=== PATIENT | male | born 1970 ===

== ENCOUNTER 2022-04-28 07:52 | Inpatient (IN) | payer MEDICARE ==
[2022-04-28] MEDS ORDERED: ACETAMINOPHEN 500 MG TAB PO ONE (09:35)
[2022-04-28] MEDS ORDERED: SODIUM CHLORIDE 0.9% 1000 ML 1,000 ML IV ONE ×2 (09:35→10:49)
[2022-04-28 10:19] LABS: Basophils % (Auto) 0.2 % (0.0-1.8); Eosinophils % (Auto) 0.4 % (0.0-4.3); Hematocrit 47.2 % (35.5-45.6); Hemoglobin 16.2 gm/dl (11.8-15.2); Lymphocytes # (Auto) 2.1 K/mm3 (1.2-5.4); Mean Corpuscular HGB Conc 34 % (32-34); Mean Corpuscular Volume 94 fl (84-94); Monocytes # (Auto) 1.6 K/mm3 (0.0-0.8); Monocytes % (Auto) 13.5 % (0.0-7.3); Platelet Count 136 K/mm3 (140-440); Red Blood Count 5.05 M/mm3 (3.65-5.03); Red Cell Distribution Width 14.6 % (13.2-15.2)
--- NOTE | 2022-04-28 10:25 | XRay Report ---
CHEST 1 VIEW 04/28/2022 9:17 AM INDICATION / CLINICAL INFORMATION: hiv, p/w body aches, fever. COMPARISON: None available. FINDINGS: SUPPORT DEVICES: None. HEART / MEDIASTINUM: No significant abnormality. LUNGS / PLEURA: Subtle patchy airspace densities are suggested in both lower lung zones. No consolida tion, pleural effusion or pneumothorax. ADDITIONAL FINDINGS: No significant additional findings. IMPRESSION: 1. Subtle bilateral airspace opacities are suggested as described. Atypical pneumonia is not excluded . Signer Name: Jefferson Farrell Jr, MD Signed: 04/28/2022 10:21 AM Workstation Name: [id number]
[2022-04-28 10:33] LABS: Alanine Aminotransferase 31 units/L (7-56); BUN/Creatinine Ratio 15; Blood Urea Nitrogen 16 mg/dL (9-20); Calcium 8.7 mg/dL (8.4-10.2); Hemolysis Index 6
[2022-04-28] MEDS ORDERED: cefTRIAXone/NS 1 GM/50 ML 1 GM/50 ML BAG IV ONE (10:48)
--- NOTE | 2022-04-28 11:18 | Emergency Department Report ---
HPI - General Chief Complaint: Pain General PUI?: Yes Time Seen by Provider: 04/28/22 09:29 - HPI HPI: 51-year-old obese male with history of HIV, CD4 and viral load counts unknown by patient, CVA with left-sided residual weakness per patient's report, hypertension, presents for evaluation of weakness. Patient reports that he has been feeling weak over the past few days and subscribes to a mild phlegm productive cough. He states he attempted to get out of bed this morning and fell, landing on the ground. He denies any head injury or loss of consciousness. He states his sister who lives with him was not able to aid him in getting up and so she called EMS and was brought to the emergency department for further evaluation. He complains of body aches and chills and generalized fatigue and weakness. Pain currently 4 out of 10 ED Past Medical Hx - Past Medical History Previous Medical History?: Yes Hx Hypertension: Yes Hx HIV: Yes - Social History Smoking Status: Never Smoker Substance Use Type: None - Medications Home Medications: Home Medications Medication Instructions Recorded Confirmed Last Taken Type Abacavir/Dolutegravir/Lamivudi 1 each PO DAILY 04/28/22 04/28/22 Unknown History [Triumeq (Nf)] AtorvaSTATin [Lipitor] 40 mg PO QHS 04/28/22 04/28/22 Unknown History Escitalopram [Lexapro] 10 mg PO DAILY 04/28/22 04/28/22 Unknown History Famotidine [Acid-Pep] 20 mg PO DAILY 04/28/22 04/28/22 Unknown History Furosemide [Lasix] 40 mg PO DAILY 04/28/22 04/28/22 Unknown History NIFEdipine [Nifedipine ER] 30 mg PO DAILY 04/28/22 04/28/22 Unknown History Warfarin Sodium 6 mg PO DAILY 04/28/22 04/28/22 Unknown History lisinopriL [Zestril TAB] 40 mg PO QDAY 04/28/22 04/28/22 Unknown History ED Review of Systems ROS: Stated complaint: GENERAL ILLNESS Other details as noted in HPI Comment: All other systems reviewed and negative Constitutional: chills, diaphoresis, fever, malaise, weakness Respiratory: no symptoms reported, see HPI, cough, shortness of breath. denies: orthopnea, SOB with exertion, SOB at rest, stridor, wheezing, other Cardiovascular: denies: chest pain, palpitations, dyspnea on exertion, orthopnea, edema, syncope, paroxysmal nocturnal dyspnea, other Endocrine: denies: see HPI, excessive sweating, flushing, intolerance to cold, intolerance to heat, increased hunger, increased thirst, increased urine, unexplained weight gain, unexplained weight loss Genitourinary: urgency, dysuria. denies: as per HPI, frequency, hematuria, discharge, testicular pain, testicular mass, other Skin: denies: rash, lesions, change in color, change in hair/nails, pruritus Neurological: denies: headache, weakness, numbness, paresthesias, confusion, abnormal gait, vertigo, other Psychiatric: denies: anxiety, depression, auditory hallucinations, visual hallucinations, homicidal thoughts, suicidal thoughts Physical Exam - Physical Exam Vital Signs: Vital Signs 04/28/22 04/28/22 08:12 10:29 Temperature 100.9 F H Pulse Rate 123 H 106 H Respiratory 19 18 Rate Blood Pressure 177/120 158/103 [Left] O2 Sat by Pulse 96 96 Oximetry General: Gen: Obese middle-age male, weak appearing, intermittently coughing, no drooling no stridor, mild respiratory distress HEENT: Normocephalic atraumatic pupils equally round and reactive to light extraocular muscles intact sclera anicteric Neck: Full range of motion, no midline spinal tenderness palpation, no JVD, no carotid bruits, no nuchal rigidity CVS: S1-S2 tachycardic, no gallops rubs or murmurs Pulmonary: Clear to auscultation bilaterally, no wheezes rales or rhonchi Abdomen: Soft nondistended nontender no guarding or rebound tenderness, no palpable deformities or step-offs, normal active bowel sounds, no hepatosplenomegaly, no pulsatile masses : Deferred Extremities: No cyanosis no clubbing no edema, intact distal peripheral pulses, Integumentary: Skin normal, no petechia no purpura no abscess no lacerations no evidence of trauma no evidence of infection Neuro: Patient is awake alert and oriented to person place time situation, mentating well, cranial nerves II through XII intact, no focal neurodeficits, sensation grossly tact Psych: Calm cooperative, mood affect normal ED Course Vital Signs 04/28/22 04/28/22 08:12 10:29 Temperature 100.9 F H Pulse Rate 123 H 106 H Respiratory 19 18 Rate Blood Pressure 177/120 158/103 [Left] O2 Sat by Pulse 96 96 Oximetry ED Medical Decision Making - Lab Data Result diagrams: 04/28/22 09:39 04/28/22 09:39 - EKG Data -: EKG Interpreted by Me Rate: tachycardia - EKG Data When compared to previous EKG there are: previous EKG unavailable - Radiology Data Radiology results: report reviewed - Medical Decision Making 51yo M p/w sepsis secondary to community acquired pneumonia. Pt has fever of 100.9F, HR of 124, and lactic acid level of 2.9. Pt given acetaminophen, NS 1L IVSS, and rocephin 1mg IVV. pt's care transferred to Dr. Killian, admitting hospitalist, for further management. Critical Care Time: No Critical care attestation.: If time is entered above; I have spent that time in minutes in the direct care of this critically ill patient, excluding procedure time. ED Disposition Clinical Impression: Sepsis, Community acquired pneumonia Disposition: ADMITTED INPATIENT Is pt being admited?: Yes Does the pt Need Aspirin: No Condition: Stable Instructions: Bacterial Pneumonia (ED)
[2022-04-28 11:26] LABS: Bacteria,Urine 1+ /HPF (Negative); Mucus,Urine 2+ /HPF
[2022-04-28 11:52] LABS: Bilirubin,Urine Small (Negative); Color,Urine Dark Yellow (Yellow)
[2022-04-28 11:53] LABS: Blood,Urine Trace (Negative)
[2022-04-28 11:55] LABS: Ictotest,Urine Negative (Negative)
--- NOTE | 2022-04-28 15:47 | History and Physical Report ---
History of Present Illness Chief complaint: I do not feel good History of present illness: 51 YO Male with HIV on antiretroviral therapy, CVA with LHP, HTN, HLD presents to ED for evaluation. Patient reports "I do not feel good". Patient states that he has experienced generalized weakness over the past 2 days with p ersistent symptoms over the same timeframe. Patient knowledges diminished oral intake. Patient states that while attempting to get out of bed he experienced a sudden onset of weakness and fell from a standing position landing on the floor. Patient denied injury. EMS was notified and upon arrival the patient was found to be in distress and subsequent transported to [facility] for further care and eval uation of the aforementioned symptoms. The patient was seen and evaluated in the emergency department. All lab and imaging studies reviewed. Patient underwent chest x-ray and was found to have pneumonia, systemic inflammatory response syndrome, and HIV infection. Patient admitted to medical floor and initiated on pneumonia protocol. Patient acknowledges subjective fever, but denies chills, chest pain, palpitation, adductive cough, skin rash, recent contact, or known exposure to COVID-19, unilateral leg swelling, calf pain, individual/family history of DVT/PE/bleeding/blood clotting disorders, or known exposure to COVID-19. No prior admission for review. No medication listed at time of admission for reconciliation. Advanced care planning conducted in ED. Past History Past Medical History: HIV/AIDS, hypertension, hyperlipidemia, stroke Past Surgical History: No surgical history, Other (Reviewed) Social history: single. denies: smoking, alcohol abuse, prescription drug abuse Family history: hypertension Medications and Allergies Allergies Allergy/AdvReac Type Severity Reaction Status Date / Time No Known Allergies Allergy Verified 04/28/22 08:19 Home Medications Medication Instructions Recorded Confirmed Last Taken Type Abacavir/Dolutegravir/Lamivudi 1 each PO DAILY 04/28/22 04/28/22 Unknown History [Triumeq (Nf)] AtorvaSTATin [Lipitor] 40 mg PO QHS 04/28/22 04/28/22 Unknown History Escitalopram [Lexapro] 10 mg PO DAILY 04/28/22 04/28/22 Unknown History Famotidine [Acid-Pep] 20 mg PO DAILY 04/28/22 04/28/22 Unknown History Furosemide [Lasix] 40 mg PO DAILY 04/28/22 04/28/22 Unknown History NIFEdipine [Nifedipine ER] 30 mg PO DAILY 04/28/22 04/28/22 Unknown History Warfarin Sodium 6 mg PO DAILY 04/28/22 04/28/22 Unknown History lisinopriL [Zestril TAB] 40 mg PO QDAY 04/28/22 04/28/22 Unknown History Active Meds: Active Medications Acetaminophen (Acetaminophen 325 Mg Tab) 650 mg PO Q4H PRN PRN Reason: Pain MILD(1-3)/Fever >100.5/FLORES Albuterol (Albuterol 2.5 Mg/3 Ml Nebu) 2.5 mg IH Q4HRT PRN PRN Reason: Shortness Of Breath Atorvastatin Calcium (Atorvastatin 40 Mg Tab) 40 mg PO QHS BRINDA Azithromycin (Azithromycin 250 Mg Tab) 500 mg PO QDAY [facility]; Protocol Escitalopram Oxalate (Escitalopram 10 Mg Tab) 10 mg PO DAILY [facility] Famotidine (Famotidine 20 Mg Tab) 20 mg PO DAILY [facility] Furosemide (Furosemide 40 Mg Tab) 40 mg PO DAILY [facility] Hydromorphone HCl (Hydromorphone 0.5 Mg/0.5 Ml Inj) 0.5 mg IV Q23H PRN PRN Reason: Pain , Severe (7-10) Sodium Chloride (Nacl 0.9% 1000 Ml) 1,000 mls @ 125 mls/hr IV DIRECT BRINDA Ceftriaxone Sodium (Rocephin/Ns 2 Gm/100 Ml) 2 gm in 100 mls @ 200 mls/hr IV Q24H BRINDA; Protocol Lisinopril (Lisinopril 40 Mg Tab) 40 mg PO QDAY [facility] Miscellaneous Medication (Abacavir/Dolutegravir/Lamivudi) 1 each PO DAILY [facility] Miscellaneous Medication (Warfarin Sodium [Warfarin Sodium]) 6 mg PO DAILY [facility] Nifedipine (Nifedipine Xl 30 Mg Tab) 30 mg PO DAILY [facility] Ondansetron HCl (Ondansetron 4 Mg/2 Ml Inj) 4 mg IV Q8H PRN PRN Reason: Nausea And Vomiting Oxycodone/Acetaminophen (Oxycodone /Acetaminophen 5-325mg Tab) 1 tab PO Q16H PRN PRN Reason: Pain, Moderate (4-6) Sodium Chloride (Sodium Chloride 0.9% 10 Ml Flush Syringe) 10 ml IV BID [facility] Sodium Chloride (Sodium Chloride 0.9% 10 Ml Flush Syringe) 10 ml IV PRN PRN PRN Reason: LINE FLUSH Review of Systems Constitutional: fever, weakness Ears, nose, mouth and throat: no ear pain, no ear discharge, no tinnitis Cardiovascular: no chest pain, no palpitations, no rapid/irregular heart beat Respiratory: no cough, no cough with sputum, no excessive sputum Gastrointestinal: no abdominal pain, no nausea, no vomiting, no diarrhea, no constipation Genitourinary Male: no hematuria, no flank pain, no discharge, no urinary hesitancy Rectal: no pain, no incontinence, no bleeding Musculoskeletal: no neck stiffness, no neck pain, no shooting arm pain, no arm numbness/tingling Integumentary: no rash, no pruritis, no redness, no sores, no wounds Neurological: no head injury, no transient paralysis, no paralysis, no weakness, no tingling, no syncope Psychiatric: no anxiety, no change in sleep habits, no insomnia, no change in appetite, no change in libido Endocrine: no cold intolerance, no polyphagia, no excessive thirst, no polydipsia, no nocturia, no excessive sweating Hematologic/Lymphatic: no easy bruising, no easy bleeding, no lymphedema Allergic/Immunologic: no urticaria, no persistent infections Exam - Constitutional Vitals: Temp Pulse Resp BP Pulse Ox 98.9 F 88 31 H 140/89 96 04/28/22 13:34 04/28/22 15:15 04/28/22 15:15 04/28/22 15:15 04/28/22 15:15 General appearance: Present: mild distress, obese - EENT Eyes: Present: PERRL ENT: hearing intact, clear oral mucosa - Neck Neck: Present: supple, normal ROM - Respiratory Respiratory effort: normal Respiratory: bilateral: diminished, rhonchi - Cardiovascular Heart Sounds: Present: S1 & S2. Absent: rub, click - Extremities Extremities: pulses symmetrical, No edema Peripheral Pulses: within normal limits - Abdominal General gastrointestinal: Present: soft, non-tender, non-distended, normal bowel sounds Male genitourinary: Present: normal - Integumentary Integumentary: Present: dry, clammy, decreased turgor - Musculoskeletal Musculoskeletal: gait normal, strength equal bilaterally - Psychiatric Psychiatric: appropriate mood/affect, intact judgment & insight - Neurologic Neurologic: CNII-XII intact, moves all extremities Results - Labs CBC & Chem 7: 04/28/22 09:39 04/28/22 09:39 Labs: Abnormal lab results 04/28/22 04/28/22 04/28/22 Range/Units 09:39 09:39 09:39 WBC 11.7 H (4.5-11.0) K/mm3 RBC 5.05 H (3.65-5.03) M/mm3 Hgb 16.2 H (11.8-15.2) gm/dl Hct 47.2 H (35.5-45.6) % Plt Count 136 L (140-440) K/mm3 [place] % (Auto) 13.5 H (0.0-7.3) % [place] # (Auto) 1.6 H (0.0-0.8) K/mm3 Seg Neutrophils # 7.9 H (1.8-7.7) K/mm3 Lactic Acid 2.50 H* (0.7-2.0) mmol/L AST 66 H (5-40) units/L Alkaline Phosphatase 1416 H (35-129) units/L Albumin 3.0 L (3.9-5) g/dL Assessment and Plan - Patient Problems (1) Pneumonia Current Visit: Yes Status: Acute Plan to address problem: Pneumonia protocol: X-ray, CBC, CMP, supplemental oxygen, pulse oximetry, nebulizer therapy, IV antibiotic therapy, supportive care. (2) SIRS (systemic inflammatory response syndrome) Current Visit: Yes Status: Acute Plan to address problem: Chest x-ray, CBC, CMP, urinalysis, submental oxygen, pulse oximetry, IV antibiotic therapy, IV fluid resuscitation therapy (3) Lactic acidosis Current Visit: Yes Status: Acute Plan to address problem: BMP, repeat BMP in a.m., IV fluid resuscitation therapy. (4) Volume depletion Current Visit: Yes Status: Acute Plan to address problem: IV fluid resuscitation therapy, BMP, repeat BMP in a.m., monitor fluid balance. (5) HIV infection Current Visit: Yes Status: Acute Qualifiers: HIV symptom status: unspecified Qualified Code(s): B20 - Human immunodeficiency virus [HIV] disease Plan to address problem: Continue antiretroviral therapy, outpatient infectious disease service follow- up. (6) Obesity hypoventilation syndrome Current Visit: Yes Status: Acute Plan to address problem: Balanced diet, increase physical activity discharge, outpatient pulmonary follow-up for sleep study. (7) DVT prophylaxis Current Visit: Yes Status: Acute Plan to address problem: SCD to bilateral lower extremities while in bed (8) Advance care planning Current Visit: Yes Status: Acute Plan to address problem: Disease education done, care plan discussed, diagnoses discussed, prognosis discussed, patient is full code. Patient knowledges understanding and agreement with care plan, +30 minutes. (9) Preventative health care Current Visit: Yes Status: Acute Plan to address problem: Patient counseled regarding balanced diet, outpatient infectious disease follow- up, outpatient follow-up with primary care physician for all age and risk factor appropriate screening test. +30 minutes.
[2022-04-28] MEDS ORDERED: ONDANSETRON 4 MG/2 ML INJ IV PRN (16:00)
[2022-04-28] MEDS ORDERED: ALBUTEROL 2.5 MG/3 ML NEBU IH PRN (16:00)
[2022-04-28] MEDS ORDERED: ACETAMINOPHEN 325 MG TAB PO PRN (16:00)
[2022-04-28] MEDS ORDERED: oxyCODONE /ACETAMINOPHEN 5-325MG TAB PO PRN (16:00)
[2022-04-28] MEDS ORDERED: HYDROmorphone 0.5 MG/0.5 ML INJ IV PRN (16:00)
[2022-04-28 17:48] LABS: INR 1.14 (0.87-1.13)
[2022-04-28] MEDS: FAMOTIDINE 20 MG TAB PO SCH (17:51)
[2022-04-28] MEDS: cefTRIAXone/NS 2 GM/100 ML 2 GM/100 ML BAG IV SCH (17:51)
[2022-04-28] MEDS: ESCITALOPRAM 10 MG TAB PO SCH (20:24)
[2022-04-28] MEDS: FUROSEMIDE 40 MG TAB PO SCH (20:24)
[2022-04-28] MEDS: SODIUM CHLORIDE 0.9% 1000 ML 1,000 ML IV SCH (22:19)
[2022-04-29] MEDS: SODIUM CHLORIDE 0.9% 1000 ML 1,000 ML IV SCH ×2 (05:58→14:48)
[2022-04-29 06:28] LABS: Amphetamine Screen,Urine Negative; Benzodiazepines Screen,Urine Negative; Cannabinoid Screen,Urine Negative; Cocaine Screen,Urine Negative; Methadone Screen,Urine Negative; Opiate Screen,Urine Negative
[2022-04-29 06:52] LABS: Basophils % (Auto) 0.2 % (0.0-1.8); Eosinophils # (Auto) 0.1 K/mm3 (0.0-0.4); Eosinophils % (Auto) 1.4 % (0.0-4.3); Hematocrit 43.1 % (35.5-45.6); Hemoglobin 14.3 gm/dl (11.8-15.2); Lymphocytes # (Auto) 1.5 K/mm3 (1.2-5.4); Lymphocytes % (Auto) 14.1 % (13.4-35.0); Mean Corpuscular HGB Conc 33 % (32-34); Mean Corpuscular Volume 94 fl (84-94); Monocytes # (Auto) 1.2 K/mm3 (0.0-0.8); Monocytes % (Auto) 11.7 % (0.0-7.3); Platelet Count 113 K/mm3 (140-440); Red Blood Count 4.61 M/mm3 (3.65-5.03); Red Cell Distribution Width 14.4 % (13.2-15.2)
[2022-04-29 07:15] LABS: BUN/Creatinine Ratio 23; Blood Urea Nitrogen 18 mg/dL (9-20); Calcium 7.9 mg/dL (8.4-10.2); Hemolysis Index 3
[2022-04-29] MEDS ORDERED: DOLUTEGRAVIR PO SCH (10:00)
[2022-04-29] MEDS ORDERED: WARFARIN SODIUM 6 MG PO SCH (10:00)
[2022-04-29] MEDS ORDERED: ABACAVIR PO SCH (10:00)
[2022-04-29] MEDS ORDERED: LAMIVUDI PO SCH (10:00)
--- NOTE | 2022-04-29 10:08 | Progress Note ---
Assessment and Plan Assessment and plan: 51 YO Male with HIV on antiretroviral therapy, CVA with LHP, HTN, HLD presents to ED for evaluation of generalized weakness over the past 2 days with diminished oral intake. Patient stated that while attempting to get out of bed he experienced a sudden onset of weakness and fell from a standing position landing on the floor. Patient denied injury. EMS was notified and upon arrival the patient was found to be in distress and subsequent transported to [facility] for further care and evaluation of the aforementioned symptoms. The patient was seen and evaluated in the emergency department. All lab and imaging studies reviewed. Patient underwent chest x-ray and was found to have pneumonia, sepsis, and HIV infection. Sepsis. POA. Patient meets criteria given the fever, tachycardia and diagnosis of pneumonia. Suspected COVID-pneumonia Bilateral lower lobe pneumonia Acute hypoxic respiratory failure. HIV Obesity hypoventilation syndrome 04/29/2022. Await PCR for COVID-pneumonia. If PCR is positive and patient hypoxic, we will initiate IV dexamethasone/remdesivir. Patient with only 2 L of oxygen at present and does not appear to be severely hypoxic. Continue IV antibiotics until procalcitonin level resulted. ID is consulted for further evaluation. Follow-up blood cultures. History Interval history: No new issues overnight Hospitalist Physical - Constitutional Vitals: Temp Pulse Resp BP Pulse Ox 97.9 F 99 H 20 166/105 96 04/29/22 01:41 04/28/22 22:15 04/28/22 22:15 04/28/22 22:15 04/28/22 22:15 General appearance: Present: no acute distress, obese - EENT Eyes: Present: PERRL, EOM intact ENT: hearing intact, clear oral mucosa, dentition normal - Neck Neck: Present: supple, normal ROM - Respiratory Respiratory effort: normal Respiratory: bilateral: CTA - Cardiovascular Rhythm: regular Heart Sounds: Present: S1 & S2. Absent: gallop, rub - Extremities Extremities: no ischemia, No edema, Full ROM - Abdominal General gastrointestinal: soft, non-tender, non-distended, normal bowel sounds - Integumentary Integumentary: Present: clear, warm, dry - Neurologic Neurologic: CNII-XII intact, moves all extremities Results - Labs CBC & Chem 7: 04/29/22 06:24 04/29/22 06:24 Labs: Laboratory Last Values WBC 10.3 K/mm3 (4.5-11.0) 04/29/22 06:24 RBC 4.61 M/mm3 (3.65-5.03) 04/29/22 06:24 Hgb 14.3 gm/dl (11.8-15.2) 04/29/22 06:24 Hct 43.1 % (35.5-45.6) 04/29/22 06:24 MCV 94 fl (84-94) 04/29/22 06:24 MCH 31 pg (28-32) 04/29/22 06:24 MCHC 33 % (32-34) 04/29/22 06:24 RDW 14.4 % (13.2-15.2) 04/29/22 06:24 Plt Count 113 K/mm3 (140-440) L 04/29/22 06:24 Lymph % (Auto) 14.1 % (13.4-35.0) 04/29/22 06:24 [place] % (Auto) 11.7 % (0.0-7.3) H 04/29/22 06:24 Eos % (Auto) 1.4 % (0.0-4.3) 04/29/22 06:24 Baso % (Auto) 0.2 % (0.0-1.8) 04/29/22 06:24 Lymph # (Auto) 1.5 K/mm3 (1.2-5.4) 04/29/22 06:24 [place] # (Auto) 1.2 K/mm3 (0.0-0.8) H 04/29/22 06:24 Eos # (Auto) 0.1 K/mm3 (0.0-0.4) 04/29/22 06:24 Baso # (Auto) 0.0 K/mm3 (0.0-0.1) 04/29/22 06:24 Seg Neutrophils % 72.6 % (40.0-70.0) H 04/29/22 06:24 Seg Neutrophils # 7.5 K/mm3 (1.8-7.7) 04/29/22 06:24 PT 16.3 Sec. (12.2-14.9) H 04/28/22 17:08 INR 1.14 (0.87-1.13) H 04/28/22 17:08 Sodium 141 mmol/L (137-145) 04/29/22 06:24 Potassium 3.8 mmol/L (3.6-5.0) 04/29/22 06:24 Chloride 107.0 mmol/L (98-107) 04/29/22 06:24 Carbon Dioxide 25 mmol/L (22-30) 04/29/22 06:24 Anion Gap 13 mmol/L 04/29/22 06:24 BUN 18 mg/dL (9-20) 04/29/22 06:24 Creatinine 0.8 mg/dL (0.8-1.3) 04/29/22 06:24 Estimated GFR > 60 ml/min 04/29/22 06:24 BUN/Creatinine Ratio 23 % 04/29/22 06:24 Glucose 92 mg/dL (75-100) 04/29/22 06:24 Lactic Acid 1.20 mmol/L (0.7-2.0) 04/28/22 13:30 Calcium 7.9 mg/dL (8.4-10.2) L 04/29/22 06:24 Total Bilirubin 0.80 mg/dL (0.1-1.2) 04/28/22 09:39 AST 66 units/L (5-40) H 04/28/22 09:39 ALT 31 units/L (7-56) 04/28/22 09:39 Alkaline Phosphatase 1416 units/L (35-129) H 04/28/22 09:39 Total Protein 7.6 g/dL (6.3-8.2) 04/28/22 09:39 Albumin 3.0 g/dL (3.9-5) L 04/28/22 09:39 Albumin/Globulin Ratio 0.7 % 04/28/22 09:39 Urine Color Dark yellow (Yellow) 04/28/22 10:29 Urine Turbidity Cloudy (Clear) 04/28/22 10:29 Urine pH 6.0 (5.0-7.0) 04/28/22 10:29 Ur Specific [place] 1.025 (1.003-1.030) 04/28/22 10:29 Urine Protein 30 mg/dl mg/dL (Negative) 04/28/22 10:29 Urine Glucose (UA) Negative mg/dL (Negative) 04/28/22 10:29 Urine Ketones Negative mg/dL (Negative) 04/28/22 10:29 Urine Blood Trace (Negative) 04/28/22 10:29 Urine Nitrite Negative (Negative) 04/28/22 10:29 Ur Reducing Substances Not Reportable 04/28/22 10:29 Urine Bilirubin Small (Negative) 04/28/22 10:29 Urine Ictotest Negative (Negative) 04/28/22 10:29 Urine Urobilinogen 1.0 mg/dL (<2.0) 04/28/22 10:29 Ur Leukocyte Esterase Negative (Negative) 04/28/22 10:29 Urine WBC (Auto) 4.0 /HPF (0.0-6.0) 04/28/22 10:29 Urine RBC (Auto) 1.0 /HPF (0.0-6.0) 04/28/22 10:29 Urine Bacteria (Auto) 1+ /HPF (Negative) 04/28/22 10:29 Urine Mucus 2+ /HPF 04/28/22 10:29 Urine Opiates Screen Negative 04/29/22 Unknown Urine Methadone Screen Negative 04/29/22 Unknown Ur Barbiturates Screen Negative 04/29/22 Unknown Ur Phencyclidine Scrn Negative 04/29/22 Unknown Ur Amphetamines Screen Negative 04/29/22 Unknown U Benzodiazepines Scrn Negative 04/29/22 Unknown Urine Cocaine Screen Negative 04/29/22 Unknown U Marijuana (THC) Screen Negative 04/29/22 Unknown Drugs of Abuse Note Disclamer 04/29/22 Unknown Microbiology: Microbiology 04/28/22 09:39 Peripheral/Venous Blood Culture - Preliminary Culture in Progress 04/28/22 09:39 Peripheral/Venous Blood Culture - Preliminary Culture in Progress Tao/IV: Voiding Method Urinal Active Medications - Current Medications Current Medications: Generic Name Dose Route Start Last Admin Trade Name Freq PRN Reason Stop Dose Admin Abacavir Sulfate 600 mg 04/29/22 10:00 Abacavir 300 Mg Tab PO QDAY BRINDA Acetaminophen 650 mg 04/28/22 16:00 Acetaminophen 325 Mg Tab PO Q4H PRN Pain MILD(1-3)/Fever >100.5/FLORES Albuterol 2.5 mg 04/28/22 16:00 Albuterol 2.5 Mg/3 Ml Nebu IH Q4HRT PRN Shortness Of Breath Atorvastatin Calcium 40 mg 04/28/22 22:00 04/28/22 22:20 Atorvastatin 40 Mg Tab PO 40 mg QHS BRINDA Administration Azithromycin 500 mg 04/29/22 10:00 Azithromycin 250 Mg Tab PO 05/03/22 10:01 QDAY [facility] Protocol Dolutegravir Sodium 50 mg 04/29/22 10:00 Dolutegravir 50 Mg Tab PO QDAY BRINDA Escitalopram Oxalate 10 mg 04/28/22 17:00 04/28/22 20:24 Escitalopram 10 Mg Tab PO 10 mg DAILY BRINDA Administration Famotidine 20 mg 04/28/22 17:00 04/28/22 17:51 Famotidine 20 Mg Tab PO 20 mg DAILY BRINDA Administration Furosemide 40 mg 04/28/22 17:00 04/28/22 20:24 Furosemide 40 Mg Tab PO 40 mg DAILY BRINDA Administration Hydromorphone HCl 0.5 mg 04/28/22 16:00 Hydromorphone 0.5 Mg/0.5 Ml Inj IV Q23H PRN Pain , Severe (7-10) Sodium Chloride 1,000 mls @ 125 mls/hr 04/28/22 16:00 04/29/22 05:58 Nacl 0.9% 1000 Ml IV 125 mls/hr DIRECT BRINDA Administration Ceftriaxone Sodium 2 gm in 100 mls @ 200 mls/hr 04/28/22 16:00 04/28/22 17:51 Rocephin/Ns 2 Gm/100 Ml IV 05/02/22 16:29 200 mls/hr Q24H BRINDA Administration Protocol Lamivudine 300 mg 04/29/22 10:00 Lamivudine 150 Mg Tab PO QDAY [facility] Lisinopril 40 mg 04/29/22 10:00 Lisinopril 40 Mg Tab PO QDAY [facility] Nifedipine 30 mg 04/29/22 10:00 Nifedipine Xl 30 Mg Tab PO DAILY [facility] Ondansetron HCl 4 mg 04/28/22 16:00 Ondansetron 4 Mg/2 Ml Inj IV Q8H PRN Nausea And Vomiting Oxycodone/Acetaminophen 1 tab 04/28/22 16:00 04/28/22 22:20 Oxycodone /Acetaminophen 5-325mg Tab PO 1 tab Q16H PRN Administration Pain, Moderate (4-6) Sodium Chloride 10 ml 04/28/22 16:00 04/28/22 23:25 Sodium Chloride 0.9% 10 Ml Flush Syringe IV 10 ml BID BRINDA Administration Sodium Chloride 10 ml 04/28/22 16:00 Sodium Chloride 0.9% 10 Ml Flush Syringe IV PRN PRN LINE FLUSH Warfarin Sodium 7.5 mg 04/29/22 17:00 Warfarin 7.5 Mg Tab PO 04/30/22 16:59 DAILY@1700 NR
[2022-04-29] MEDS: NIFEdipine XL 30 MG TAB PO SCH (11:12)
[2022-04-29] MEDS: ABACAVIR 300 MG TAB PO SCH (11:13)
[2022-04-29] MEDS: DOLUTEGRAVIR 50 MG TAB PO SCH (11:13)
[2022-04-29] MEDS: ESCITALOPRAM 10 MG TAB PO SCH (11:15)
[2022-04-29] MEDS: AZITHROMYCIN 250 MG TAB PO SCH (11:15)
[2022-04-29] MEDS: FAMOTIDINE 20 MG TAB PO SCH (11:15)
[2022-04-29] MEDS: LISINOPRIL 40 MG TAB PO SCH (11:16)
--- NOTE | 2022-04-29 13:18 | Consultation ---
History of Present Illness - Reason for Consult Consult date: 04/29/22 pneumonia Requesting physician: PADMINI VELIZ - History of Present Illness The patient is a 51-year-old male with HIV on Triumeq, prior CVA, hypertension, hyperlipidemia was admitted to the hospital with weakness and not feeling well. Upon evaluation, noted to have a low-grade fever of 100.9 F, labs revealed mild leukocytosis. Chest x-ray revealed subtle bilateral opacities suggestive of atypical pneumonia. Infectious diseases was consulted for additional evaluation. Currently on ceftriaxone, azithromycin. Feeling better now. Denies any nausea, vomiting or diarrhea. Denies any cough or chest pain. Denies urinary burning. With regards to his HIV, positive for about 20 years, has been undetectable on Triumeq, used to follow-up at [facility], recently moved to [place], his heart doctor is going to help him find a local provider. Review of Systems: General: no fevers,chills or rigors HEENT: no new visual disturbance Respiratory: No cough, sputum, hemoptysis or shortness of breath Cardiovascular: No chest pain, syncope Gastrointestinal: No nausea, vomiting or diarrhea Genitourinary: No dysuria or hematuria Musculoskeletal: No new or worsening neck pain or back pain Neurologic: No headaches, seizures Hematologic: No easy bruising or bleeding Endocrine: No night sweats or acute weight loss Skin: negative for rash, jaundice Psychiatric: No suicidal or homicidal ideation Past History Past Medical History: HIV/AIDS, hypertension, hyperlipidemia, stroke Past Surgical History: No surgical history, Other (Reviewed) Social history: single. denies: smoking, alcohol abuse, prescription drug abuse Family history: hypertension Medications and Allergies Allergies Allergy/AdvReac Type Severity Reaction Status Date / Time No Known Allergies Allergy Verified 04/28/22 08:19 Home Medications Medication Instructions Recorded Confirmed Last Taken Type Abacavir/Dolutegravir/Lamivudi 1 each PO DAILY 04/28/22 04/28/22 Unknown History [Triumeq (Nf)] AtorvaSTATin [Lipitor] 40 mg PO QHS 04/28/22 04/28/22 Unknown History Escitalopram [Lexapro] 10 mg PO DAILY 04/28/22 04/28/22 Unknown History Famotidine [Acid-Pep] 20 mg PO DAILY 04/28/22 04/28/22 Unknown History Furosemide [Lasix] 40 mg PO DAILY 04/28/22 04/28/22 Unknown History NIFEdipine [Nifedipine ER] 30 mg PO DAILY 04/28/22 04/28/22 Unknown History Warfarin Sodium 6 mg PO DAILY 04/28/22 04/28/22 Unknown History lisinopriL [Zestril TAB] 40 mg PO QDAY 04/28/22 04/28/22 Unknown History Active Meds: Active Medications Abacavir Sulfate (Abacavir 300 Mg Tab) 600 mg PO QDAY [facility] Last Admin: 04/29/22 11:13 Dose: 600 mg Acetaminophen (Acetaminophen 325 Mg Tab) 650 mg PO Q4H PRN PRN Reason: Pain MILD(1-3)/Fever >100.5/FLORES Albuterol (Albuterol 2.5 Mg/3 Ml Nebu) 2.5 mg IH Q4HRT PRN PRN Reason: Shortness Of Breath Atorvastatin Calcium (Atorvastatin 40 Mg Tab) 40 mg PO QHS [facility] Last Admin: 04/28/22 22:20 Dose: 40 mg Azithromycin (Azithromycin 250 Mg Tab) 500 mg PO QDAY [facility]; Protocol Stop: 05/03/22 10:01 Last Admin: 04/29/22 11:15 Dose: 500 mg Dolutegravir Sodium (Dolutegravir 50 Mg Tab) 50 mg PO QDAY [facility] Last Admin: 04/29/22 11:13 Dose: 50 mg Escitalopram Oxalate (Escitalopram 10 Mg Tab) 10 mg PO DAILY [facility] Last Admin: 04/29/22 11:15 Dose: 10 mg Famotidine (Famotidine 20 Mg Tab) 20 mg PO DAILY [facility] Last Admin: 04/29/22 11:15 Dose: 20 mg Furosemide (Furosemide 40 Mg Tab) 40 mg PO DAILY [facility] Last Admin: 04/28/22 20:24 Dose: 40 mg Hydromorphone HCl (Hydromorphone 0.5 Mg/0.5 Ml Inj) 0.5 mg IV Q23H PRN PRN Reason: Pain , Severe (7-10) Sodium Chloride (Nacl 0.9% 1000 Ml) 1,000 mls @ 125 mls/hr IV DIRECT [facility] Last Admin: 04/29/22 05:58 Dose: 125 mls/hr Ceftriaxone Sodium (Rocephin/Ns 2 Gm/100 Ml) 2 gm in 100 mls @ 200 mls/hr IV Q24H [facility]; Protocol Stop: 05/02/22 16:29 Last Admin: 04/28/22 17:51 Dose: 200 mls/hr Lamivudine (Lamivudine 150 Mg Tab) 300 mg PO QDAY [facility] Last Admin: 04/29/22 11:13 Dose: 300 mg Lisinopril (Lisinopril 40 Mg Tab) 40 mg PO QDAY [facility] Last Admin: 04/29/22 11:16 Dose: 40 mg Nifedipine (Nifedipine Xl 30 Mg Tab) 30 mg PO DAILY [facility] Last Admin: 04/29/22 11:12 Dose: 30 mg Ondansetron HCl (Ondansetron 4 Mg/2 Ml Inj) 4 mg IV Q8H PRN PRN Reason: Nausea And Vomiting Oxycodone/Acetaminophen (Oxycodone /Acetaminophen 5-325mg Tab) 1 tab PO Q16H PRN PRN Reason: Pain, Moderate (4-6) Last Admin: 04/28/22 22:20 Dose: 1 tab Sodium Chloride (Sodium Chloride 0.9% 10 Ml Flush Syringe) 10 ml IV BID [facility] Last Admin: 04/28/22 23:25 Dose: 10 ml Sodium Chloride (Sodium Chloride 0.9% 10 Ml Flush Syringe) 10 ml IV PRN PRN PRN Reason: LINE FLUSH Warfarin Sodium (Warfarin 7.5 Mg Tab) 7.5 mg PO DAILY@1700 NR Stop: 04/30/22 16:59 Physical Examination - Physical Exam Narrative exam: Physical Exam: Constitutional: Alert, cooperative. No acute distress Head, Ears, Nose: Normocephalic, atraumatic. External ears, nose normal Eyes: Conjunctivae/corneas clear. No icterus. No ptosis. Neck: Supple, no meningeal signs Oral: no thrush Cardiovascular: S1, S2 + Respiratory: Good air entry, clear to auscultation bilaterally GI: Soft, non-tender; bowel sounds normal. No peritoneal signs Musculoskeletal: No pedal edema, no cyanosis. Skin: No rash or abscess Hem/Lymphatic: No palpable cervical or supraclavicular nodes. No lymphangitis Psych: Mood ok. Affect normal Neurological: Awake, alert, oriented - Constitutional Vitals: Vital Signs Temp Pulse Resp BP Pulse Ox 97.9 F 99 H 20 166/105 96 04/29/22 01:41 04/28/22 22:15 04/28/22 22:15 04/28/22 22:15 04/28/22 22:15 Temperature -Last 24 Hours Temperature 97.9 F Temperature 97.7 F Temperature 98.9 F Results - Labs CBC & Chem 7: 04/29/22 06:24 04/29/22 06:24 Labs: Abnormal lab results 04/28/22 04/29/22 04/29/22 Range/Units 17:08 06:24 06:24 Plt Count 113 L (140-440) K/mm3 [place] % (Auto) 11.7 H (0.0-7.3) % [place] # (Auto) 1.2 H (0.0-0.8) K/mm3 Seg Neutrophils % 72.6 H (40.0-70.0) % PT 16.3 H (12.2-14.9) Sec. INR 1.14 H (0.87-1.13) Calcium 7.9 L (8.4-10.2) mg/dL - Imaging and Cardiology Chest x-ray: report reviewed, image reviewed (subtle b/l pna) Assessment and Plan Cultures: COVID-19 PCR: Negative 04/28/2022 blood culture: No growth A/P: 51-year-old male with HIV on Triumeq, prior CVA, hypertension, hyperlipidemia was admitted to the hospital with weakness and not feeling well: #Atypical pneumonia #HIV disease: positive for about 20 years, has been undetectable on Triumeq, used to follow-up at [facility], recently moved to [place], his heart doctor is going to help him find a local provider. #Sepsis: improving #Elevated alkaline phosphatase #Mild thrombocytopenia Recs: Continue Triumeq, split into abacavir, lamivudine, dolutegravir but hospital formulary Continue empiric antibiotics for pneumonia, upon discharge, switch to p.o. Ceftin 500 mg twice daily plus azithromycin 500 mg daily to complete total of 5 days including inpatient therapy Monitor INR closely while on antibiotics since patient is on Coumadin RUQ ultrasound ordered due to very high alkaline phosphatase Lokesh Garcia MD, FACP, [facility] O: [phone] F: [phone] C: [phone]
[2022-04-29] MEDS ORDERED: WARFARIN 7.5 MG TAB PO SCH (17:00)
[2022-04-29] MEDS ORDERED: WARFARIN 7.5 MG TAB PO NR (17:00)
[2022-04-29] MEDS: FUROSEMIDE 40 MG TAB PO SCH (17:43)
[2022-04-29] MEDS: cefTRIAXone/NS 2 GM/100 ML 2 GM/100 ML BAG IV SCH (17:43)
[2022-04-30] MEDS: SODIUM CHLORIDE 0.9% 1000 ML 1,000 ML IV SCH ×2 (03:28→17:43)
[2022-04-30 06:28] LABS: INR 1.05 (0.87-1.13)
--- NOTE | 2022-04-30 08:52 | Ultrasound Report ---
LIMITED RUQ ABDOMINAL ULTRASOUND INDICATION: very high alk phos. COMPARISON: No relevant prior imaging study available. FINDINGS: Pancreas: Poorly visualized secondary to overlying bowel gas. No gross abnormality. Abdominal Aorta: No significant abnormality. IVC: No significant abnormality. Liver: The liver measures 18.3 cm in length. The liver is mildly enlarged with increased echotexture suggesting steatosis. Resolution of the ultrasound images of the liver are slightly limited due to b cecelia habitus but no obvious cirrhotic changes or liver mass. Normal hepatopedal blood flow in the main portal vein. Gallbladder: The gallbladder is poorly distended. No obvious stones or sludge.. Bile ducts: Mild diffuse intrahepatic biliary prominence is suggested without obvious obstructing les ion. Common bile duct measures 2 mm. Right kidney: No significant abnormality visualized. Free fluid: None. Additional Findings: None. IMPRESSION: Limited exam secondary to body habitus and bowel gas. There is poor visualization of the pancreas and some portions of the liver. Mild diffuse intrahepatic biliary prominence is suggested without obvious obstructing lesion. The gal lbladder is poorly imaged but there is no convincing evidence for cholelithiasis. The common bile jay t is normal caliber. Consider further evaluation with multiphase CT or MRI with IV contrast. Signer Name: Jefferson Farrell Jr, MD Signed: 04/30/2022 8:48 AM Workstation Name: [id number]
--- NOTE | 2022-04-30 09:04 | Progress Note ---
Assessment and Plan Cultures: COVID-19 PCR: Negative 04/28/2022 blood culture: No growth A/P: 51-year-old male with HIV on Triumeq, prior CVA, hypertension, hyperlipidemia was admitted to the hospital with weakness and not feeling well: #Atypical pneumonia #HIV disease: positive for about 20 years, has been undetectable on Triumeq, used to follow-up at [facility], recently moved to [place], his heart doctor has referred him to a local provider. #Sepsis: improving #Elevated alkaline phosphatase #Mild thrombocytopenia Recs: -Continue Triumeq, split into abacavir, lamivudine, dolutegravir but hospital formulary -Continue empiric antibiotics for pneumonia, upon discharge, switch to p.o. Ceftin 500 mg twice daily plus azithromycin 500 mg daily to complete total of 5 days including inpatient therapy -Monitor INR closely while on antibiotics since patient is on Coumadin -f/u RUQ ultrasound (very high alkaline phosphatase) -will follow up with HIV provider upon discharge. He does not think he can come to our ID clinic at [place] because he doesn't drive and it might be too far for him. Has enough Triumeq at home Lokesh Garcia MD, FACP, [facility] O: [phone] F: [phone] C: [phone] Subjective Date of service: 04/30/22 Interval history: Low grade temp x 1. Upright eating breakfast. Denies any complaints at this time. Says he has enough Triumeq at home. Objective - Exam Narrative Exam: Physical Exam: Constitutional: Alert, cooperative. No acute distress Head, Ears, Nose: Normocephalic, atraumatic. External ears, nose normal Eyes: Conjunctivae/corneas clear. No icterus. No ptosis. Neck: Supple, no meningeal signs Oral: no thrush Cardiovascular: S1, S2 + Respiratory: Good air entry, clear to auscultation bilaterally GI: Soft, non-tender; bowel sounds normal. No peritoneal signs Musculoskeletal: No pedal edema, no cyanosis. Skin: No rash or abscess Hem/Lymphatic: No palpable cervical or supraclavicular nodes. No lymphangitis Psych: Mood ok. Affect normal Neurological: Awake, alert, oriented - Constitutional Vitals: Vital Signs Temp Pulse Resp BP Pulse Ox 100.3 F H 97 H 22 137/87 96 04/29/22 16:52 04/30/22 05:57 04/30/22 07:18 04/30/22 05:57 04/30/22 07:18 Temperature -Last 24 Hours Temperature 100.3 F Temperature 98.9 F - Labs CBC & Chem 7: 04/29/22 06:24 04/29/22 06:24 Labs: Abnormal lab results 04/30/22 Range/Units 05:32 PT 15.2 H (12.2-14.9) Sec.
--- NOTE | 2022-04-30 09:17 | Progress Note ---
Assessment and Plan Assessment and plan: 51 YO Male with HIV on antiretroviral therapy, CVA with LHP, HTN, HLD presents to ED for evaluation of generalized weakness over the past 2 days with diminished oral intake. Patient stated that while attempting to get out of bed he experienced a sudden onset of weakness and fell from a standing position landing on the floor. Patient denied injury. EMS was notified and upon arrival the patient was found to be in distress and subsequent transported to [facility] for further care and evaluation of the aforementioned symptoms. The patient was seen and evaluated in the emergency department. All lab and imaging studies reviewed. Patient underwent chest x-ray and was found to have pneumonia, sepsis, and HIV infection. Sepsis. POA. Patient meets criteria given the fever, tachycardia and diagnosis of pneumonia. Suspected COVID-pneumonia Bilateral lower lobe pneumonia Acute hypoxic respiratory failure. HIV Obesity hypoventilation syndrome Elevated alkaline phosphatase. 04/29/2022. Await PCR for COVID-pneumonia. If PCR is positive and patient hypoxic, we will initiate IV dexamethasone/remdesivir. Patient with only 2 L of oxygen at present and does not appear to be severely hypoxic. Continue IV antibiotics until procalcitonin level resulted. ID is consulted for further evaluation. Follow-up blood cultures. 04/30/2022. COVID PCR was found to be negative. Continue anti-retrovirals per ID recommendations. Continue empiric antibiotics for pneumonia. We will change to Ceftin 500 mg p.o. twice daily plus azithromycin at discharge. Abdominal ultrasound revealed mild diffuse intrahepatic biliary prominence without obvious obstructing lesion. No evidence of cholelithiasis History Interval history: No new issues overnight Hospitalist Physical - Constitutional Vitals: Temp Pulse Resp BP Pulse Ox 100.3 F H 97 H 22 137/87 96 04/29/22 16:52 04/30/22 05:57 04/30/22 07:18 04/30/22 05:57 04/30/22 07:18 General appearance: Present: no acute distress, obese - EENT Eyes: Present: PERRL, EOM intact ENT: hearing intact, clear oral mucosa, dentition normal - Neck Neck: Present: supple, normal ROM - Respiratory Respiratory effort: normal Respiratory: bilateral: CTA - Cardiovascular Rhythm: regular Heart Sounds: Present: S1 & S2. Absent: gallop, rub - Extremities Extremities: no ischemia, No edema, Full ROM - Abdominal General gastrointestinal: soft, non-tender, non-distended, normal bowel sounds - Integumentary Integumentary: Present: clear, warm, dry - Neurologic Neurologic: CNII-XII intact, moves all extremities Results - Labs CBC & Chem 7: 04/29/22 06:24 04/29/22 06:24 Labs: Laboratory Last Values WBC 10.3 K/mm3 (4.5-11.0) 04/29/22 06:24 RBC 4.61 M/mm3 (3.65-5.03) 04/29/22 06:24 Hgb 14.3 gm/dl (11.8-15.2) 04/29/22 06:24 Hct 43.1 % (35.5-45.6) 04/29/22 06:24 MCV 94 fl (84-94) 04/29/22 06:24 MCH 31 pg (28-32) 04/29/22 06:24 MCHC 33 % (32-34) 04/29/22 06:24 RDW 14.4 % (13.2-15.2) 04/29/22 06:24 Plt Count 113 K/mm3 (140-440) L 04/29/22 06:24 Lymph % (Auto) 14.1 % (13.4-35.0) 04/29/22 06:24 [place] % (Auto) 11.7 % (0.0-7.3) H 04/29/22 06:24 Eos % (Auto) 1.4 % (0.0-4.3) 04/29/22 06:24 Baso % (Auto) 0.2 % (0.0-1.8) 04/29/22 06:24 Lymph # (Auto) 1.5 K/mm3 (1.2-5.4) 04/29/22 06:24 [place] # (Auto) 1.2 K/mm3 (0.0-0.8) H 04/29/22 06:24 Eos # (Auto) 0.1 K/mm3 (0.0-0.4) 04/29/22 06:24 Baso # (Auto) 0.0 K/mm3 (0.0-0.1) 04/29/22 06:24 Seg Neutrophils % 72.6 % (40.0-70.0) H 04/29/22 06:24 Seg Neutrophils # 7.5 K/mm3 (1.8-7.7) 04/29/22 06:24 PT 15.2 Sec. (12.2-14.9) H 04/30/22 05:32 INR 1.05 (0.87-1.13) 04/30/22 05:32 Sodium 141 mmol/L (137-145) 04/29/22 06:24 Potassium 3.8 mmol/L (3.6-5.0) 04/29/22 06:24 Chloride 107.0 mmol/L (98-107) 04/29/22 06:24 Carbon Dioxide 25 mmol/L (22-30) 04/29/22 06:24 Anion Gap 13 mmol/L 04/29/22 06:24 BUN 18 mg/dL (9-20) 04/29/22 06:24 Creatinine 0.8 mg/dL (0.8-1.3) 04/29/22 06:24 Estimated GFR > 60 ml/min 04/29/22 06:24 BUN/Creatinine Ratio 23 % 04/29/22 06:24 Glucose 92 mg/dL (75-100) 04/29/22 06:24 Lactic Acid 1.20 mmol/L (0.7-2.0) 04/28/22 13:30 Calcium 7.9 mg/dL (8.4-10.2) L 04/29/22 06:24 Total Bilirubin 0.80 mg/dL (0.1-1.2) 04/28/22 09:39 AST 66 units/L (5-40) H 04/28/22 09:39 ALT 31 units/L (7-56) 04/28/22 09:39 Alkaline Phosphatase 1416 units/L (35-129) H 04/28/22 09:39 Total Protein 7.6 g/dL (6.3-8.2) 04/28/22 09:39 Albumin 3.0 g/dL (3.9-5) L 04/28/22 09:39 Albumin/Globulin Ratio 0.7 % 04/28/22 09:39 Urine Color Dark yellow (Yellow) 04/28/22 10:29 Urine Turbidity Cloudy (Clear) 04/28/22 10:29 Urine pH 6.0 (5.0-7.0) 04/28/22 10:29 Ur Specific [place] 1.025 (1.003-1.030) 04/28/22 10:29 Urine Protein 30 mg/dl mg/dL (Negative) 04/28/22 10:29 Urine Glucose (UA) Negative mg/dL (Negative) 04/28/22 10:29 Urine Ketones Negative mg/dL (Negative) 04/28/22 10:29 Urine Blood Trace (Negative) 04/28/22 10:29 Urine Nitrite Negative (Negative) 04/28/22 10:29 Ur Reducing Substances Not Reportable 04/28/22 10:29 Urine Bilirubin Small (Negative) 04/28/22 10:29 Urine Ictotest Negative (Negative) 04/28/22 10:29 Urine Urobilinogen 1.0 mg/dL (<2.0) 04/28/22 10:29 Ur Leukocyte Esterase Negative (Negative) 04/28/22 10:29 Urine WBC (Auto) 4.0 /HPF (0.0-6.0) 04/28/22 10:29 Urine RBC (Auto) 1.0 /HPF (0.0-6.0) 04/28/22 10:29 Urine Bacteria (Auto) 1+ /HPF (Negative) 04/28/22 10:29 Urine Mucus 2+ /HPF 04/28/22 10:29 Urine Opiates Screen Negative 04/29/22 Unknown Urine Methadone Screen Negative 04/29/22 Unknown Ur Barbiturates Screen Negative 04/29/22 Unknown Ur Phencyclidine Scrn Negative 04/29/22 Unknown Ur Amphetamines Screen Negative 04/29/22 Unknown U Benzodiazepines Scrn Negative 04/29/22 Unknown Urine Cocaine Screen Negative 04/29/22 Unknown U Marijuana (THC) Screen Negative 04/29/22 Unknown Drugs of Abuse Note Disclamer 04/29/22 Unknown SARS-CoV-2 (PCR) Negative (Negative) 04/29/22 12:10 Microbiology: Microbiology 04/28/22 09:39 Peripheral/Venous Blood Culture - Preliminary NO GROWTH AFTER 24 HOURS 04/28/22 09:39 Peripheral/Venous Blood Culture - Preliminary NO GROWTH AFTER 24 HOURS Tao/IV: Voiding Method Urinal Active Medications - Current Medications Current Medications: Generic Name Dose Route Start Last Admin Trade Name Freq PRN Reason Stop Dose Admin Abacavir Sulfate 600 mg 04/29/22 10:00 04/29/22 11:13 Abacavir 300 Mg Tab PO 600 mg QDAY BRINDA Administration Acetaminophen 650 mg 04/28/22 16:00 Acetaminophen 325 Mg Tab PO Q4H PRN Pain MILD(1-3)/Fever >100.5/FLORES Albuterol 2.5 mg 04/28/22 16:00 Albuterol 2.5 Mg/3 Ml Nebu IH Q4HRT PRN Shortness Of Breath Atorvastatin Calcium 40 mg 04/28/22 22:00 04/29/22 21:30 Atorvastatin 40 Mg Tab PO 40 mg QHS BRINDA Administration Azithromycin 500 mg 04/29/22 10:00 04/29/22 11:15 Azithromycin 250 Mg Tab PO 05/03/22 10:01 500 mg QDAY BRINDA Administration Protocol Dolutegravir Sodium 50 mg 04/29/22 10:00 04/29/22 11:13 Dolutegravir 50 Mg Tab PO 50 mg QDAY BRINDA Administration Escitalopram Oxalate 10 mg 04/28/22 17:00 04/29/22 11:15 Escitalopram 10 Mg Tab PO 10 mg DAILY BRINDA Administration Famotidine 20 mg 04/28/22 17:00 04/29/22 11:15 Famotidine 20 Mg Tab PO 20 mg DAILY BRINDA Administration Furosemide 40 mg 04/28/22 17:00 04/29/22 17:43 Furosemide 40 Mg Tab PO 40 mg DAILY BRINDA Administration Hydromorphone HCl 0.5 mg 04/28/22 16:00 Hydromorphone 0.5 Mg/0.5 Ml Inj IV Q23H PRN Pain , Severe (7-10) Sodium Chloride 1,000 mls @ 125 mls/hr 04/28/22 16:00 04/30/22 03:28 Nacl 0.9% 1000 Ml IV 125 mls/hr DIRECT BRINDA Administration Ceftriaxone Sodium 2 gm in 100 mls @ 200 mls/hr 04/28/22 16:00 04/29/22 17:43 Rocephin/Ns 2 Gm/100 Ml IV 05/03/22 16:59 200 mls/hr Q24H BRINDA Administration Protocol Lamivudine 300 mg 04/29/22 10:00 04/29/22 11:13 Lamivudine 150 Mg Tab PO 300 mg QDAY BRINDA Administration Lisinopril 40 mg 04/29/22 10:00 04/29/22 11:16 Lisinopril 40 Mg Tab PO 40 mg QDAY BRINDA Administration Nifedipine 30 mg 04/29/22 10:00 04/29/22 11:12 Nifedipine Xl 30 Mg Tab PO 30 mg DAILY BRINDA Administration Ondansetron HCl 4 mg 04/28/22 16:00 Ondansetron 4 Mg/2 Ml Inj IV Q8H PRN Nausea And Vomiting Oxycodone/Acetaminophen 1 tab 04/28/22 16:00 04/28/22 22:20 Oxycodone /Acetaminophen 5-325mg Tab PO 1 tab Q16H PRN Administration Pain, Moderate (4-6) Sodium Chloride 10 ml 04/28/22 16:00 04/29/22 21:30 Sodium Chloride 0.9% 10 Ml Flush Syringe IV 10 ml BID BRINDA Administration Sodium Chloride 10 ml 04/28/22 16:00 Sodium Chloride 0.9% 10 Ml Flush Syringe IV PRN PRN LINE FLUSH Warfarin Sodium 7.5 mg 04/30/22 17:00 Warfarin 7.5 Mg Tab PO 05/01/22 16:59 DAILY@1700 NR Nutrition/Malnutrition Assess - Dietary Evaluation Nutrition/Malnutrition Findings: Nutrition Notes Start: 04/29/22 11:14 Freq: Status: Active Protocol: Document 04/29/22 11:14 STEFF (Rec: 04/29/22 11:53 STEFF [email or web address]) Nutrition Notes Initial or Follow up Assessment Current Diagnosis Hypertension,Stroke, Hyperlipidemia Other Pertinent Diagnosis Pneumonia, SIRS, Lactic Acidosis, Dehydration, OHS, HIV/AIDS, ... Current Diet Regular Diet (since D 04/28). Labs/Tests 04/29: Ca 7.9. Pertinent Medications 04/29: Coumadin 7.5 mg, others nutritionally unremarkable. 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 Weight Status Obese Subjective/Other Information RD consult for warfarine use assessment. No reports available on Pt's PO intake of meals at the time , will assess at F/U. Pt is on Room Air, O2 saturation @ 96%, according to Physical Assessment History notes. Pt presents an uspecified area of concern for skin risk at the time, according to Physical Assessment History notes. Pt still on critical condition , not a candidate for nutrition education at this time, will assess feasibility at F/U. Percent of energy/protein needs met: Prescribed Regular Diet provides for energy/protein needs (2,289 Kcal/89 g) during LOS. Burn Absent Trauma Absent GI Symptoms None Food Allergy No Skin Integrity/Comment Unspecified area of concern. 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 No Is Patient Ambulatory and/or Out of Bed Yes REE-([place]-St. Jeor-ambulatory/OOB) [ 2782.494 NUTR.[id number]] Kcal/Kg value to use for calculation 19 Approximate Energy Requirements Using 2310 kcal/Kg Calculation Used for Recommendations Kcal/kg Additional Notes Protein: 0.8-1 g/Kg AdjBW; 83- 104 g/day. Fluids: 1 ml/Kcal, or as per MD. Nutrition Intervention Change Diet Order: Continue Regular Diet. Follow-Up By: 05/06/22 Additional Comments Nutrition education will be provided at F/U, if feasible. Continue monitoring food tolerance, %PO intake of meals , and BM.
[2022-04-30] MEDS: LISINOPRIL 40 MG TAB PO SCH (09:32)
[2022-04-30] MEDS: FUROSEMIDE 40 MG TAB PO SCH (09:32)
[2022-04-30] MEDS: FAMOTIDINE 20 MG TAB PO SCH (09:33)
[2022-04-30] MEDS: ESCITALOPRAM 10 MG TAB PO SCH (09:33)
[2022-04-30] MEDS: AZITHROMYCIN 250 MG TAB PO SCH (09:33)
--- NOTE | 2022-04-30 09:40 | Event Note ---
Date: 04/30/22 Got consult for elevated alk phos and dilated hepatic ducts, chart reviewed, orders placed for initial eval with MRI/MRCP and repeat LFT and GGT, will see patient in AM tomorrow and interpret results with further recs based upon the results
[2022-04-30] MEDS: NIFEdipine XL 30 MG TAB PO SCH (09:43)
[2022-04-30] MEDS: DOLUTEGRAVIR 50 MG TAB PO SCH (10:44)
[2022-04-30] MEDS: ABACAVIR 300 MG TAB PO SCH (10:44)
[2022-04-30 11:41] LABS: Alanine Aminotransferase 34 units/L (7-56); Albumin 2.5 g/dL (3.9-5)
[2022-04-30 11:46] LABS: Bilirubin,Direct < 0.2 mg/dL (0-0.2)
[2022-04-30] MEDS: cefTRIAXone/NS 2 GM/100 ML 2 GM/100 ML BAG IV SCH (15:56)
[2022-04-30] MEDS ORDERED: WARFARIN 7.5 MG TAB PO NR (17:00)
[2022-05-01 05:52] LABS: Hematocrit 41.7 % (35.5-45.6); Hemoglobin 14.2 gm/dl (11.8-15.2); Mean Corpuscular HGB Conc 34 % (32-34); Mean Corpuscular Volume 93 fl (84-94); Platelet Count 162 K/mm3 (140-440); Red Blood Count 4.47 M/mm3 (3.65-5.03)
[2022-05-01 06:00] LABS: INR 1.26 (0.87-1.13)
[2022-05-01 06:16] LABS: BUN/Creatinine Ratio 15; Blood Urea Nitrogen 12 mg/dL (9-20); Calcium 8.1 mg/dL (8.4-10.2); Hemolysis Index 6
[2022-05-01 06:42] LABS: Basophils % (Manual) 0 % (0.0-1.8); Total Cells Counted 100
[2022-05-01 06:43] LABS: Platelet Estimate Consistent w Auto
--- NOTE | 2022-05-01 08:14 | Gastroenterology Consultation ---
History of Present Illness - Reason for Consult Consult date: 05/01/22 Abnormal liver enzymes Requesting physician: PADMINI VELIZ - History of Present Illness Is a pleasant 51-year-old gentleman presenting with weakness found to have elevated liver enzymes and dilated intrahepatic bile duct therefore GI is consulted Patient denies jaundice history of liver disease tea-colored urine or abdominal pain He just reports progressive weakness of his lower extremities he has presented here in the hospital Denies drinking alcohol denies any new medications denies intravenous or illicit drug use denies any herbal supplements or remedies denies any family history or personal history of liver disease denies weight loss denies diarrhea Obtained/updated/reviewed patient's current medications Past History Past Medical History: HIV/AIDS, hypertension, hyperlipidemia, stroke Past Surgical History: No surgical history, Other (Reviewed) Social history: single. denies: smoking, alcohol abuse, prescription drug abuse Family history: hypertension Medications and Allergies Allergies Allergy/AdvReac Type Severity Reaction Status Date / Time No Known Allergies Allergy Verified 04/28/22 08:19 Home Medications Medication Instructions Recorded Confirmed Last Taken Type Abacavir/Dolutegravir/Lamivudi 1 each PO DAILY 04/28/22 04/28/22 Unknown History [Triumeq (Nf)] AtorvaSTATin [Lipitor] 40 mg PO QHS 04/28/22 04/28/22 Unknown History Escitalopram [Lexapro] 10 mg PO DAILY 04/28/22 04/28/22 Unknown History Famotidine [Acid-Pep] 20 mg PO DAILY 04/28/22 04/28/22 Unknown History Furosemide [Lasix] 40 mg PO DAILY 04/28/22 04/28/22 Unknown History NIFEdipine [Nifedipine ER] 30 mg PO DAILY 04/28/22 04/28/22 Unknown History Warfarin Sodium 6 mg PO DAILY 04/28/22 04/28/22 Unknown History lisinopriL [Zestril TAB] 40 mg PO QDAY 04/28/22 04/28/22 Unknown History Active Meds: Active Medications Abacavir Sulfate (Abacavir 300 Mg Tab) 600 mg PO QDAY BRINDA Last Admin: 04/30/22 10:44 Dose: 600 mg Acetaminophen (Acetaminophen 325 Mg Tab) 650 mg PO Q4H PRN PRN Reason: Pain MILD(1-3)/Fever >100.5/FLORES Albuterol (Albuterol 2.5 Mg/3 Ml Nebu) 2.5 mg IH Q4HRT PRN PRN Reason: Shortness Of Breath Atorvastatin Calcium (Atorvastatin 40 Mg Tab) 40 mg PO QHS [facility] Last Admin: 04/30/22 21:24 Dose: 40 mg Azithromycin (Azithromycin 250 Mg Tab) 500 mg PO QDAY [facility]; Protocol Stop: 05/03/22 10:01 Last Admin: 04/30/22 09:33 Dose: 500 mg Dolutegravir Sodium (Dolutegravir 50 Mg Tab) 50 mg PO QDAY [facility] Last Admin: 04/30/22 10:44 Dose: 50 mg Escitalopram Oxalate (Escitalopram 10 Mg Tab) 10 mg PO DAILY [facility] Last Admin: 04/30/22 09:33 Dose: 10 mg Famotidine (Famotidine 20 Mg Tab) 20 mg PO DAILY [facility] Last Admin: 04/30/22 09:33 Dose: 20 mg Furosemide (Furosemide 40 Mg Tab) 40 mg PO DAILY [facility] Last Admin: 04/30/22 09:32 Dose: 40 mg Hydromorphone HCl (Hydromorphone 0.5 Mg/0.5 Ml Inj) 0.5 mg IV Q23H PRN PRN Reason: Pain , Severe (7-10) Sodium Chloride (Nacl 0.9% 1000 Ml) 1,000 mls @ 125 mls/hr IV DIRECT [facility] Last Admin: 04/30/22 17:43 Dose: 125 mls/hr Ceftriaxone Sodium (Rocephin/Ns 2 Gm/100 Ml) 2 gm in 100 mls @ 200 mls/hr IV Q24H [facility]; Protocol Stop: 05/03/22 16:59 Last Admin: 04/30/22 15:56 Dose: 200 mls/hr Lamivudine (Lamivudine 150 Mg Tab) 300 mg PO QDAY [facility] Last Admin: 04/30/22 10:44 Dose: 300 mg Lisinopril (Lisinopril 40 Mg Tab) 40 mg PO QDAY [facility] Last Admin: 04/30/22 09:32 Dose: 40 mg Nifedipine (Nifedipine Xl 30 Mg Tab) 30 mg PO DAILY [facility] Last Admin: 04/30/22 09:43 Dose: 30 mg Ondansetron HCl (Ondansetron 4 Mg/2 Ml Inj) 4 mg IV Q8H PRN PRN Reason: Nausea And Vomiting Oxycodone/Acetaminophen (Oxycodone /Acetaminophen 5-325mg Tab) 1 tab PO Q16H PRN PRN Reason: Pain, Moderate (4-6) Last Admin: 04/28/22 22:20 Dose: 1 tab Sodium Chloride (Sodium Chloride 0.9% 10 Ml Flush Syringe) 10 ml IV BID BRINDA Last Admin: 04/30/22 21:24 Dose: 10 ml Sodium Chloride (Sodium Chloride 0.9% 10 Ml Flush Syringe) 10 ml IV PRN PRN PRN Reason: LINE FLUSH Warfarin Sodium (Warfarin 7.5 Mg Tab) 7.5 mg PO DAILY@1700 NR Stop: 05/01/22 16:59 Last Admin: 04/30/22 16:04 Dose: 7.5 mg Review of Systems - Review of Systems All systems: negative (10 Systems reviewed and negative except as mentioned above in the history of present illness) Exam - Constitutional Vital Signs: Temp Pulse Resp BP Pulse Ox 97.9 F 98 H 16 145/97 93 04/30/22 21:32 04/30/22 21:32 04/30/22 21:32 04/30/22 21:32 04/30/22 21:32 General appearance: no acute distress - EENT Eyes: EOM intact - Neck Neck: supple - Respiratory Respiratory effort: normal - Cardiovascular Rhythm: regular - Gastrointestinal General gastrointestinal: Present: soft, non-tender - Integumentary Integumentary: Present: dry - Musculoskeletal Musculoskeletal: normal - Neurologic Neurological: alert and oriented x3 - Psychiatric Psychiatric: appropriate mood/affect - Labs CBC & Chem 7: 05/01/22 04:00 05/01/22 04:00 Lab Results: Laboratory Results - last 24 hr 04/29/22 04/30/22 04/30/22 19:31 11:04 11:04 WBC RBC Hgb Hct MCV MCH MCHC RDW Plt Count Add Manual Diff Total Counted Seg Neuts % (Manual) Band Neutrophils % Lymphocytes % (Manual) Reactive Lymphs % (Man) Monocytes % (Manual) Eosinophils % (Manual) Basophils % (Manual) Metamyelocytes % Myelocytes % Promyelocytes % Blast Cells % Nucleated RBC % Seg Neutrophils # Man Band Neutrophils # Lymphocytes # (Manual) Abs React Lymphs (Man) Monocytes # (Manual) Eosinophils # (Manual) Basophils # (Manual) Metamyelocytes # Myelocytes # Promyelocytes # Blast Cells # WBC Morphology Hypersegmented Neuts Hyposegmented Neuts Hypogranular Neuts Smudge Cells Toxic Granulation Toxic Vacuolation Dohle Bodies Pelger-Huet Anomaly Jigar Rods Platelet Estimate Clumped Platelets Plt Clumps, EDTA Large Platelets Giant Platelets Platelet Satelliting Plt Morphology Comment RBC Morphology Dimorphic RBCs Polychromasia Hypochromasia Poikilocytosis Anisocytosis Microcytosis Macrocytosis Spherocytes Pappenheimer Bodies Sickle Cells Target Cells Tear Drop Cells Ovalocytes Helmet Cells Sheldon-[place] Bodies Clovis Rings [place] Cells Bite Cells Crenated Cell Elliptocytes Acanthocytes (Spur) Rouleaux Hemoglobin C Crystals Schistocytes Malaria parasites Tony Bodies Hem Pathologist Commnt PT INR Sodium Potassium Chloride Carbon Dioxide Anion Gap BUN Creatinine Estimated GFR BUN/Creatinine Ratio Glucose Calcium Total Bilirubin 0.40 Direct Bilirubin < 0.2 Indirect Bilirubin 0.2 AST 52 H ALT 34 Alkaline Phosphatase 1094 H 1059 H Total Protein 6.8 Albumin 2.5 L Albumin/Globulin Ratio 0.6 Procalcitonin 0.80 05/01/22 05/01/22 05/01/22 04:00 04:00 04:00 WBC 8.8 RBC 4.47 Hgb 14.2 Hct 41.7 MCV 93 MCH 32 MCHC 34 RDW 14.0 Plt Count 162 Add Manual Diff Complete Total Counted 100 Seg Neuts % (Manual) 71.0 H Band Neutrophils % 0 Lymphocytes % (Manual) 17.0 Reactive Lymphs % (Man) 0 Monocytes % (Manual) 9.0 H Eosinophils % (Manual) 3.0 Basophils % (Manual) 0 Metamyelocytes % 0 Myelocytes % 0 Promyelocytes % 0 Blast Cells % 0 Nucleated RBC % Not Reportable Seg Neutrophils # Man 6.2 Band Neutrophils # 0.0 Lymphocytes # (Manual) 1.5 Abs React Lymphs (Man) 0.0 Monocytes # (Manual) 0.8 Eosinophils # (Manual) 0.3 Basophils # (Manual) 0.0 Metamyelocytes # 0.0 Myelocytes # 0.0 Promyelocytes # 0.0 Blast Cells # 0.0 WBC Morphology Not Reportable Hypersegmented Neuts Not Reportable Hyposegmented Neuts Not Reportable Hypogranular Neuts Not Reportable Smudge Cells Not Reportable Toxic Granulation Not Reportable Toxic Vacuolation Not Reportable Dohle Bodies Not Reportable Pelger-Huet Anomaly Not Reportable Jigar Rods Not Reportable Platelet Estimate Consistent w auto Clumped Platelets Not Reportable Plt Clumps, EDTA Not Reportable Large Platelets Not Reportable Giant Platelets Not Reportable Platelet Satelliting Not Reportable Plt Morphology Comment Giant platelets RBC Morphology Not Reportable Dimorphic RBCs Not Reportable Polychromasia Not Reportable Hypochromasia Not Reportable Poikilocytosis Not Reportable Anisocytosis Not Reportable Microcytosis Not Reportable Macrocytosis Not Reportable Spherocytes Not Reportable Pappenheimer Bodies Not Reportable Sickle Cells Not Reportable Target Cells Not Reportable Tear Drop Cells Not Reportable Ovalocytes Not Reportable Helmet Cells Not Reportable Sheldon-[place] Bodies Not Reportable Cl[place]is Rings Not Reportable Nicolas Cells Not Reportable Bite Cells Not Reportable Crenated Cell Not Reportable Elliptocytes Not Reportable Acanthocytes (Spur) Not Reportable Rouleaux Not Reportable Hemoglobin C Crystals Not Reportable Schistocytes Not Reportable Malaria parasites Not Reportable Tony Bodies Not Reportable Hem Pathologist Commnt No PT 17.6 H INR 1.26 H Sodium 140 Potassium 3.4 L Chloride 102.9 Carbon Dioxide 25 Anion Gap 16 BUN 12 Creatinine 0.8 Estimated GFR > 60 BUN/Creatinine Ratio 15 Glucose 84 Calcium 8.1 L Total Bilirubin Direct Bilirubin Indirect Bilirubin AST ALT Alkaline Phosphatase 1119 H Total Protein Albumin Albumin/Globulin Ratio Procalcitonin Assessment and Plan Initial evaluation pending, with MRI/MRCP r/o biliary lesion such as cholangio, stone, infiltrating hepatic lesion, etc; check GGT as well to ensure hepatic source as opposed to extrahepatic source for the elevated alkaline phosphatase though given the intrahepatic biliary dilatation high index of suspicion for hepatic source - Patient Problems (1) Elevated alkaline phosphatase level Current Visit: Yes Status: Acute (2) Dilation of biliary tract Current Visit: Yes Status: Acute
--- NOTE | 2022-05-01 10:17 | Progress Note ---
Assessment and Plan Assessment and plan: 51 YO Male with HIV on antiretroviral therapy, CVA with LHP, HTN, HLD presents to ED for evaluation of generalized weakness over the past 2 days with diminished oral intake. Patient stated that while attempting to get out of bed he experienced a sudden onset of weakness and fell from a standing position landing on the floor. Patient denied injury. EMS was notified and upon arrival the patient was found to be in distress and subsequent transported to [facility] for further care and evaluation of the aforementioned symptoms. The patient was seen and evaluated in the emergency department. All lab and imaging studies reviewed. Patient underwent chest x-ray and was found to have pneumonia, sepsis, and HIV infection. Sepsis. POA. Patient meets criteria given the fever, tachycardia and diagnosis of pneumonia. Suspected COVID-pneumonia Bilateral lower lobe pneumonia Acute hypoxic respiratory failure. HIV Obesity hypoventilation syndrome Elevated alkaline phosphatase. 04/29/2022. Await PCR for COVID-pneumonia. If PCR is positive and patient hypoxic, we will initiate IV dexamethasone/remdesivir. Patient with only 2 L of oxygen at present and does not appear to be severely hypoxic. Continue IV antibiotics until procalcitonin level resulted. ID is consulted for further evaluation. Follow-up blood cultures. 04/30/2022. COVID PCR was found to be negative. Continue anti-retrovirals per ID recommendations. Continue empiric antibiotics for pneumonia. We will change to Ceftin 500 mg p.o. twice daily plus azithromycin at discharge. Abdominal ultrasound revealed mild diffuse intrahepatic biliary prominence without obvious obstructing lesion. No evidence of cholelithiasis 05/01/2022. Patient for MRCP for elevated alkaline phosphatase. GI following. Continue IV antibiotics for pneumonia. Patient will receive Ceftin and azithromycin at discharge. Await placement History Interval history: No new issues overnight Hospitalist Physical - Constitutional Vitals: Temp Pulse Resp BP Pulse Ox 97.9 F 98 H 16 145/97 93 04/30/22 21:32 04/30/22 21:32 04/30/22 21:32 04/30/22 21:32 04/30/22 21:32 General appearance: Present: no acute distress, obese - EENT Eyes: Present: PERRL, EOM intact ENT: hearing intact, clear oral mucosa, dentition normal - Neck Neck: Present: supple, normal ROM - Respiratory Respiratory effort: normal Respiratory: bilateral: CTA - Cardiovascular Rhythm: regular Heart Sounds: Present: S1 & S2. Absent: gallop, rub - Extremities Extremities: no ischemia, No edema, Full ROM - Abdominal General gastrointestinal: soft, non-tender, non-distended, normal bowel sounds - Integumentary Integumentary: Present: clear, warm, dry - Neurologic Neurologic: CNII-XII intact, moves all extremities Results - Labs CBC & Chem 7: 05/01/22 04:00 05/01/22 04:00 Labs: Laboratory Last Values WBC 8.8 K/mm3 (4.5-11.0) 05/01/22 04:00 RBC 4.47 M/mm3 (3.65-5.03) 05/01/22 04:00 Hgb 14.2 gm/dl (11.8-15.2) 05/01/22 04:00 Hct 41.7 % (35.5-45.6) 05/01/22 04:00 MCV 93 fl (84-94) 05/01/22 04:00 MCH 32 pg (28-32) 05/01/22 04:00 MCHC 34 % (32-34) 05/01/22 04:00 RDW 14.0 % (13.2-15.2) 05/01/22 04:00 Plt Count 162 K/mm3 (140-440) 05/01/22 04:00 Lymph % (Auto) 14.1 % (13.4-35.0) 04/29/22 06:24 [place] % (Auto) 11.7 % (0.0-7.3) H 04/29/22 06:24 Eos % (Auto) 1.4 % (0.0-4.3) 04/29/22 06:24 Baso % (Auto) 0.2 % (0.0-1.8) 04/29/22 06:24 Lymph # (Auto) 1.5 K/mm3 (1.2-5.4) 04/29/22 06:24 [place] # (Auto) 1.2 K/mm3 (0.0-0.8) H 04/29/22 06:24 Eos # (Auto) 0.1 K/mm3 (0.0-0.4) 04/29/22 06:24 Baso # (Auto) 0.0 K/mm3 (0.0-0.1) 04/29/22 06:24 Add Manual Diff Complete 05/01/22 04:00 Total Counted 100 05/01/22 04:00 Seg Neutrophils % 72.6 % (40.0-70.0) H 04/29/22 06:24 Seg Neuts % (Manual) 71.0 % (40.0-70.0) H 05/01/22 04:00 Band Neutrophils % 0 % 05/01/22 04:00 Lymphocytes % (Manual) 17.0 % (13.4-35.0) 05/01/22 04:00 Reactive Lymphs % (Man) 0 % 05/01/22 04:00 Monocytes % (Manual) 9.0 % (0.0-7.3) H 05/01/22 04:00 Eosinophils % (Manual) 3.0 % (0.0-4.3) 05/01/22 04:00 Basophils % (Manual) 0 % (0.0-1.8) 05/01/22 04:00 Metamyelocytes % 0 % 05/01/22 04:00 Myelocytes % 0 % 05/01/22 04:00 Promyelocytes % 0 % 05/01/22 04:00 Blast Cells % 0 % 05/01/22 04:00 Nucleated RBC % Not Reportable 05/01/22 04:00 Seg Neutrophils # 7.5 K/mm3 (1.8-7.7) 04/29/22 06:24 Seg Neutrophils # Man 6.2 K/mm3 (1.8-7.7) 05/01/22 04:00 Band Neutrophils # 0.0 K/mm3 05/01/22 04:00 Lymphocytes # (Manual) 1.5 K/mm3 (1.2-5.4) 05/01/22 04:00 Abs React Lymphs (Man) 0.0 K/mm3 05/01/22 04:00 Monocytes # (Manual) 0.8 K/mm3 (0.0-0.8) 05/01/22 04:00 Eosinophils # (Manual) 0.3 K/mm3 (0.0-0.4) 05/01/22 04:00 Basophils # (Manual) 0.0 K/mm3 (0.0-0.1) 05/01/22 04:00 Metamyelocytes # 0.0 K/mm3 05/01/22 04:00 Myelocytes # 0.0 K/mm3 05/01/22 04:00 Promyelocytes # 0.0 K/mm3 05/01/22 04:00 Blast Cells # 0.0 K/mm3 05/01/22 04:00 WBC Morphology Not Reportable 05/01/22 04:00 Hypersegmented Neuts Not Reportable 05/01/22 04:00 Hyposegmented Neuts Not Reportable 05/01/22 04:00 Hypogranular Neuts Not Reportable 05/01/22 04:00 Smudge Cells Not Reportable 05/01/22 04:00 Toxic Granulation Not Reportable 05/01/22 04:00 Toxic Vacuolation Not Reportable 05/01/22 04:00 Dohle Bodies Not Reportable 05/01/22 04:00 Pelger-Huet Anomaly Not Reportable 05/01/22 04:00 Jigar Rods Not Reportable 05/01/22 04:00 Platelet Estimate Consistent w auto 05/01/22 04:00 Clumped Platelets Not Reportable 05/01/22 04:00 Plt Clumps, EDTA Not Reportable 05/01/22 04:00 Large Platelets Not Reportable 05/01/22 04:00 Giant Platelets Not Reportable 05/01/22 04:00 Platelet Satelliting Not Reportable 05/01/22 04:00 Plt Morphology Comment Giant platelets 05/01/22 04:00 RBC Morphology Not Reportable 05/01/22 04:00 Dimorphic RBCs Not Reportable 05/01/22 04:00 Polychromasia Not Reportable 05/01/22 04:00 Hypochromasia Not Reportable 05/01/22 04:00 Poikilocytosis Not Reportable 05/01/22 04:00 Anisocytosis Not Reportable 05/01/22 04:00 Microcytosis Not Reportable 05/01/22 04:00 Macrocytosis Not Reportable 05/01/22 04:00 Spherocytes Not Reportable 05/01/22 04:00 Pappenheimer Bodies Not Reportable 05/01/22 04:00 Sickle Cells Not Reportable 05/01/22 04:00 Target Cells Not Reportable 05/01/22 04:00 Tear Drop Cells Not Reportable 05/01/22 04:00 Ovalocytes Not Reportable 05/01/22 04:00 Helmet Cells Not Reportable 05/01/22 04:00 [place] Bodies Not Reportable 05/01/22 04:00 [place] Rings Not Reportable 05/01/22 04:00 [place] Cells Not Reportable 05/01/22 04:00 Bite Cells Not Reportable 05/01/22 04:00 Crenated Cell Not Reportable 05/01/22 04:00 Elliptocytes Not Reportable 05/01/22 04:00 Acanthocytes (Spur) Not Reportable 05/01/22 04:00 Rouleaux Not Reportable 05/01/22 04:00 Hemoglobin C Crystals Not Reportable 05/01/22 04:00 Schistocytes Not Reportable 05/01/22 04:00 Malaria parasites Not Reportable 05/01/22 04:00 Tony Bodies Not Reportable 05/01/22 04:00 Hem Pathologist Commnt No 05/01/22 04:00 PT 17.6 Sec. (12.2-14.9) H 05/01/22 04:00 INR 1.26 (0.87-1.13) H 05/01/22 04:00 Sodium 140 mmol/L (137-145) 05/01/22 04:00 Potassium 3.4 mmol/L (3.6-5.0) L 05/01/22 04:00 Chloride 102.9 mmol/L (98-107) 05/01/22 04:00 Carbon Dioxide 25 mmol/L (22-30) 05/01/22 04:00 Anion Gap 16 mmol/L 05/01/22 04:00 BUN 12 mg/dL (9-20) 05/01/22 04:00 Creatinine 0.8 mg/dL (0.8-1.3) 05/01/22 04:00 Estimated GFR > 60 ml/min 05/01/22 04:00 BUN/Creatinine Ratio 15 % 05/01/22 04:00 Glucose 84 mg/dL (75-100) 05/01/22 04:00 Lactic Acid 1.20 mmol/L (0.7-2.0) 04/28/22 13:30 Calcium 8.1 mg/dL (8.4-10.2) L 05/01/22 04:00 Total Bilirubin 0.40 mg/dL (0.1-1.2) 04/30/22 11:04 Direct Bilirubin < 0.2 mg/dL (0-0.2) 04/30/22 11:04 Indirect Bilirubin 0.2 mg/dL 04/30/22 11:04 AST 52 units/L (5-40) H 04/30/22 11:04 ALT 34 units/L (7-56) 04/30/22 11:04 Alkaline Phosphatase 1119 units/L (35-129) H 05/01/22 04:00 Total Protein 6.8 g/dL (6.3-8.2) 04/30/22 11:04 Albumin 2.5 g/dL (3.9-5) L 04/30/22 11:04 Albumin/Globulin Ratio 0.6 % 04/30/22 11:04 Procalcitonin 0.80 ng/mL (<0.15) 04/29/22 19:31 Urine Color Dark yellow (Yellow) 04/28/22 10:29 Urine Turbidity Cloudy (Clear) 04/28/22 10:29 Urine pH 6.0 (5.0-7.0) 04/28/22 10:29 Ur Specific [place] 1.025 (1.003-1.030) 04/28/22 10:29 Urine Protein 30 mg/dl mg/dL (Negative) 04/28/22 10:29 Urine Glucose (UA) Negative mg/dL (Negative) 04/28/22 10:29 Urine Ketones Negative mg/dL (Negative) 04/28/22 10:29 Urine Blood Trace (Negative) 04/28/22 10:29 Urine Nitrite Negative (Negative) 04/28/22 10:29 Ur Reducing Substances Not Reportable 04/28/22 10:29 Urine Bilirubin Small (Negative) 04/28/22 10:29 Urine Ictotest Negative (Negative) 04/28/22 10:29 Urine Urobilinogen 1.0 mg/dL (<2.0) 04/28/22 10:29 Ur Leukocyte Esterase Negative (Negative) 04/28/22 10:29 Urine WBC (Auto) 4.0 /HPF (0.0-6.0) 04/28/22 10:29 Urine RBC (Auto) 1.0 /HPF (0.0-6.0) 04/28/22 10:29 Urine Bacteria (Auto) 1+ /HPF (Negative) 04/28/22 10:29 Urine Mucus 2+ /HPF 04/28/22 10:29 Urine Opiates Screen Negative 04/29/22 Unknown Urine Methadone Screen Negative 04/29/22 Unknown Ur Barbiturates Screen Negative 04/29/22 Unknown Ur Phencyclidine Scrn Negative 04/29/22 Unknown Ur Amphetamines Screen Negative 04/29/22 Unknown U Benzodiazepines Scrn Negative 04/29/22 Unknown Urine Cocaine Screen Negative 04/29/22 Unknown U Marijuana (THC) Screen Negative 04/29/22 Unknown Drugs of Abuse Note Disclamer 04/29/22 Unknown SARS-CoV-2 (PCR) Negative (Negative) 04/29/22 12:10 Microbiology: Microbiology 04/28/22 09:39 Peripheral/Venous Blood Culture - Preliminary NO GROWTH AFTER 48 HOURS 04/28/22 09:39 Peripheral/Venous Blood Culture - Preliminary NO GROWTH AFTER 48 HOURS Tao/IV: Voiding Method Urinal Active Medications - Current Medications Current Medications: Generic Name Dose Route Start Last Admin Trade Name Freq PRN Reason Stop Dose Admin Abacavir Sulfate 600 mg 04/29/22 10:00 04/30/22 10:44 Abacavir 300 Mg Tab PO 600 mg QDAY BRINDA Administration Acetaminophen 650 mg 04/28/22 16:00 Acetaminophen 325 Mg Tab PO Q4H PRN Pain MILD(1-3)/Fever >100.5/FLORES Albuterol 2.5 mg 04/28/22 16:00 Albuterol 2.5 Mg/3 Ml Nebu IH Q4HRT PRN Shortness Of Breath Atorvastatin Calcium 40 mg 04/28/22 22:00 04/30/22 21:24 Atorvastatin 40 Mg Tab PO 40 mg QHS BRINDA Administration Azithromycin 500 mg 04/29/22 10:00 04/30/22 09:33 Azithromycin 250 Mg Tab PO 05/03/22 10:01 500 mg QDAY BRINDA Administration Protocol Dolutegravir Sodium 50 mg 04/29/22 10:00 04/30/22 10:44 Dolutegravir 50 Mg Tab PO 50 mg QDAY BRINDA Administration Escitalopram Oxalate 10 mg 04/28/22 17:00 04/30/22 09:33 Escitalopram 10 Mg Tab PO 10 mg DAILY BRINDA Administration Famotidine 20 mg 04/28/22 17:00 04/30/22 09:33 Famotidine 20 Mg Tab PO 20 mg DAILY BRINDA Administration Furosemide 40 mg 04/28/22 17:00 04/30/22 09:32 Furosemide 40 Mg Tab PO 40 mg DAILY BRINDA Administration Hydromorphone HCl 0.5 mg 04/28/22 16:00 Hydromorphone 0.5 Mg/0.5 Ml Inj IV Q23H PRN Pain , Severe (7-10) Sodium Chloride 1,000 mls @ 125 mls/hr 04/28/22 16:00 04/30/22 17:43 Nacl 0.9% 1000 Ml IV 125 mls/hr DIRECT BRINDA Administration Ceftriaxone Sodium 2 gm in 100 mls @ 200 mls/hr 04/28/22 16:00 04/30/22 15:56 Rocephin/Ns 2 Gm/100 Ml IV 05/03/22 16:59 200 mls/hr Q24H BRINDA Administration Protocol Lamivudine 300 mg 04/29/22 10:00 04/30/22 10:44 Lamivudine 150 Mg Tab PO 300 mg QDAY BRINDA Administration Lisinopril 40 mg 04/29/22 10:00 04/30/22 09:32 Lisinopril 40 Mg Tab PO 40 mg QDAY BRINDA Administration Nifedipine 30 mg 04/29/22 10:00 04/30/22 09:43 Nifedipine Xl 30 Mg Tab PO 30 mg DAILY BRINDA Administration Ondansetron HCl 4 mg 04/28/22 16:00 Ondansetron 4 Mg/2 Ml Inj IV Q8H PRN Nausea And Vomiting Oxycodone/Acetaminophen 1 tab 04/28/22 16:00 04/28/22 22:20 Oxycodone /Acetaminophen 5-325mg Tab PO 1 tab Q16H PRN Administration Pain, Moderate (4-6) Sodium Chloride 10 ml 04/28/22 16:00 04/30/22 21:24 Sodium Chloride 0.9% 10 Ml Flush Syringe IV 10 ml BID BRINDA Administration Sodium Chloride 10 ml 04/28/22 16:00 Sodium Chloride 0.9% 10 Ml Flush Syringe IV PRN PRN LINE FLUSH Warfarin Sodium 7.5 mg 05/01/22 17:00 Warfarin 7.5 Mg Tab PO 05/02/22 16:59 DAILY@1700 NR Nutrition/Malnutrition Assess - Dietary Evaluation Nutrition/Malnutrition Findings: Nutrition Notes Start: 04/29/22 11:14 Freq: Status: Active Protocol: Document 04/29/22 11:14 STEFF (Rec: 04/29/22 11:53 STEFF [email or web address]) Nutrition Notes Initial or Follow up Assessment Current Diagnosis Hypertension,Stroke, Hyperlipidemia Other Pertinent Diagnosis Pneumonia, SIRS, Lactic Acidosis, Dehydration, OHS, HIV/AIDS, ... Current Diet Regular Diet (since D 04/28). Labs/Tests 04/29: Ca 7.9. Pertinent Medications 04/29: Coumadin 7.5 mg, others nutritionally unremarkable. Height 6 ft 2 in Weight 121.563 kg [place] Body Weight (kg) 86.36 BMI 34.4 Intake Prior to Admission Good Weight change and time frame Pt denies having loss body weight CALL OUT OPERATOR. Weight Status Obese Subjective/Other Information RD consult for warfarine use assessment. No reports available on Pt's PO intake of meals at the time , will assess at F/U. Pt is on Room Air, O2 saturation @ 96%, according to Physical Assessment History notes. Pt presents an uspecified area of concern for skin risk at the time, according to Physical Assessment History notes. Pt still on critical condition , not a candidate for nutrition education at this time, will assess feasibility at F/U. Percent of energy/protein needs met: Prescribed Regular Diet provides for energy/protein needs (2,289 Kcal/89 g) during LOS. Burn Absent Trauma Absent GI Symptoms None Food Allergy No Skin Integrity/Comment Unspecified area of concern. Minimum of two criteria No Fluid Accumulation N/A Reduced Dining Car Conductor Strength N/A (non-severe) Protein-Calorie Malnutrition N\A #1 Nutrition Diagnosis No nutrition diagnosis at this time Is patient on ventilator? No Is Patient Ambulatory and/or Out of Bed Yes REE-([facility]-ambulatory/OOB) [ 2782.494 [id number]] Kcal/Kg value to use for calculation 19 Approximate Energy Requirements Using 2310 kcal/Kg Calculation Used for Recommendations Kcal/kg Additional Notes Protein: 0.8-1 g/Kg AdjBW; 83- 104 g/day. Fluids: 1 ml/Kcal, or as per MD. Nutrition Intervention Change Diet Order: Continue Regular Diet. Follow-Up By: 05/06/22 Additional Comments Nutrition education will be provided at F/U, if feasible. Continue monitoring food tolerance, %PO intake of meals , and BM.
[2022-05-01] MEDS: DOLUTEGRAVIR 50 MG TAB PO SCH (10:22)
[2022-05-01] MEDS: AZITHROMYCIN 250 MG TAB PO SCH (10:22)
[2022-05-01] MEDS: ABACAVIR 300 MG TAB PO SCH (10:23)
[2022-05-01] MEDS: FAMOTIDINE 20 MG TAB PO SCH (10:23)
[2022-05-01] MEDS: ESCITALOPRAM 10 MG TAB PO SCH (10:23)
[2022-05-01] MEDS: FUROSEMIDE 40 MG TAB PO SCH (10:25)
[2022-05-01] MEDS: LISINOPRIL 40 MG TAB PO SCH (10:26)
[2022-05-01] MEDS: NIFEdipine XL 30 MG TAB PO SCH (11:19)
[2022-05-01] MEDS ORDERED: LORazepam 2 MG/ML VIAL IV ONE (12:49)
--- NOTE | 2022-05-01 14:16 | Event Note ---
Date: 05/01/22 Off the floor for MRI.
[2022-05-01] MEDS ORDERED: WARFARIN 7.5 MG TAB PO NR (17:00)
[2022-05-01] MEDS: cefTRIAXone/NS 2 GM/100 ML 2 GM/100 ML BAG IV SCH (18:05)
--- NOTE | 2022-05-01 18:06 | Electrocardiograph Report ---
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
[2022-05-02] MEDS: SODIUM CHLORIDE 0.9% 1000 ML 1,000 ML IV SCH (00:34)
[2022-05-02 06:36] LABS: INR 1.5 (0.87-1.13)
--- NOTE | 2022-05-02 08:47 | Gastroenterology Progress Note ---
Assessment and Plan Initial evaluation pending, Did not tolerate MRI/MRCP spoke with nurse to ensure anxiolytic given prior to going down so he will have it in his system by the time he goes into the machine; purpose is to r/o biliary lesion such as cholangio, stone, infiltrating hepatic lesion, etc; spoke to him again about this today and he is agreeable I ordered GGT yesterday, not resulted yet, as well to ensure hepatic source as opposed to extrahepatic source for the elevated alkaline phosphatase (also checking alk phos isoenzymes) though given the intrahepatic biliary dilatation high index of suspicion for hepatic source in Meantime to be thorough will order rest of eval for abnormal elevated LFT - Patient Problems (1) Elevated alkaline phosphatase level Current Visit: Yes Status: Acute (2) Dilation of biliary tract Current Visit: Yes Status: Acute Subjective Date of service: 05/02/22 Principal diagnosis: Elevated LFT Interval history: Patient did not tolerate MRI due to claustrophobia Otherwise reports feeling a little bit better today regarding his strength Only INR is resulted so far from AM labs but is trending up Objective - Constitutional Vitals: Temp Pulse Resp BP Pulse Ox 98.6 F 91 H 16 155/100 92 05/02/22 04:54 05/02/22 04:54 05/02/22 04:54 05/02/22 04:54 05/02/22 04:54 General appearance: no acute distress - EENT Eyes: EOM intact ENT: hearing intact - Respiratory Respiratory effort: normal - Cardiovascular Rhythm: regular - Gastrointestinal General gastrointestinal: Present: soft, non-tender - Integumentary Integumentary: Present: dry - Neurologic Neurological: alert and oriented x3 - Psychiatric Psychiatric: appropriate mood/affect - Labs CBC & Chem 7: 05/01/22 04:00 05/01/22 04:00 Labs: Laboratory Results - last 24 hr 05/02/22 05:51 PT 20.4 H INR 1.50 H
[2022-05-02] MEDS ORDERED: LORazepam 2 MG/ML VIAL IV NR (08:55)
--- NOTE | 2022-05-02 09:33 | Progress Note ---
Assessment and Plan Assessment and plan: 51 YO Male with HIV on antiretroviral therapy, CVA with LHP, HTN, HLD presents to ED for evaluation of generalized weakness over the past 2 days with diminished oral intake. Patient stated that while attempting to get out of bed he experienced a sudden onset of weakness and fell from a standing position landing on the floor. Patient denied injury. EMS was notified and upon arrival the patient was found to be in distress and subsequent transported to [facility] for further care and evaluation of the aforementioned symptoms. The patient was seen and evaluated in the emergency department. All lab and imaging studies reviewed. Patient underwent chest x-ray and was found to have pneumonia, sepsis, and HIV infection. Sepsis. POA. Patient meets criteria given the fever, tachycardia and diagnosis of pneumonia. Suspected COVID-pneumonia Bilateral lower lobe pneumonia Acute hypoxic respiratory failure. HIV Obesity hypoventilation syndrome Elevated alkaline phosphatase. 04/29/2022. Await PCR for COVID-pneumonia. If PCR is positive and patient hypoxic, we will initiate IV dexamethasone/remdesivir. Patient with only 2 L of oxygen at present and does not appear to be severely hypoxic. Continue IV antibiotics until procalcitonin level resulted. ID is consulted for further evaluation. Follow-up blood cultures. 04/30/2022. COVID PCR was found to be negative. Continue anti-retrovirals per ID recommendations. Continue empiric antibiotics for pneumonia. We will change to Ceftin 500 mg p.o. twice daily plus azithromycin at discharge. Abdominal ultrasound revealed mild diffuse intrahepatic biliary prominence without obvious obstructing lesion. No evidence of cholelithiasis 05/01/2022. Patient for MRCP for elevated alkaline phosphatase. GI following. Continue IV antibiotics for pneumonia. Patient will receive Ceftin and azithromycin at discharge. Await placement 05/02/2022. Patient unable to do MRCP yesterday due to claustrophobia. We will give Ativan and attempt repeat MRCP today. Follow-up GGT levels to ensure hepatic source. Continue antibiotics and switch to Ceftin/azithromycin at discharge. History Interval history: No new issues overnight Hospitalist Physical - Constitutional Vitals: Temp Pulse Resp BP Pulse Ox 98.6 F 91 H 16 155/100 92 05/02/22 04:54 05/02/22 04:54 05/02/22 04:54 05/02/22 04:54 05/02/22 04:54 General appearance: Present: no acute distress, obese - EENT Eyes: Present: PERRL, EOM intact ENT: hearing intact, clear oral mucosa, dentition normal - Neck Neck: Present: supple, normal ROM - Respiratory Respiratory effort: normal Respiratory: bilateral: CTA - Cardiovascular Rhythm: regular Heart Sounds: Present: S1 & S2. Absent: gallop, rub - Extremities Extremities: no ischemia, No edema, Full ROM - Abdominal General gastrointestinal: soft, non-tender, non-distended, normal bowel sounds - Integumentary Integumentary: Present: clear, warm, dry - Neurologic Neurologic: CNII-XII intact, moves all extremities Results - Labs CBC & Chem 7: 05/01/22 04:00 05/01/22 04:00 Labs: Laboratory Last Values WBC 8.8 K/mm3 (4.5-11.0) 05/01/22 04:00 RBC 4.47 M/mm3 (3.65-5.03) 05/01/22 04:00 Hgb 14.2 gm/dl (11.8-15.2) 05/01/22 04:00 Hct 41.7 % (35.5-45.6) 05/01/22 04:00 MCV 93 fl (84-94) 05/01/22 04:00 MCH 32 pg (28-32) 05/01/22 04:00 MCHC 34 % (32-34) 05/01/22 04:00 RDW 14.0 % (13.2-15.2) 05/01/22 04:00 Plt Count 162 K/mm3 (140-440) 05/01/22 04:00 Lymph % (Auto) 14.1 % (13.4-35.0) 04/29/22 06:24 Christian % (Auto) 11.7 % (0.0-7.3) H 04/29/22 06:24 Eos % (Auto) 1.4 % (0.0-4.3) 04/29/22 06:24 Baso % (Auto) 0.2 % (0.0-1.8) 04/29/22 06:24 Lymph # (Auto) 1.5 K/mm3 (1.2-5.4) 04/29/22 06:24 Christian # (Auto) 1.2 K/mm3 (0.0-0.8) H 04/29/22 06:24 Eos # (Auto) 0.1 K/mm3 (0.0-0.4) 04/29/22 06:24 Baso # (Auto) 0.0 K/mm3 (0.0-0.1) 04/29/22 06:24 Add Manual Diff Complete 05/01/22 04:00 Total Counted 100 05/01/22 04:00 Seg Neutrophils % 72.6 % (40.0-70.0) H 04/29/22 06:24 Seg Neuts % (Manual) 71.0 % (40.0-70.0) H 05/01/22 04:00 Band Neutrophils % 0 % 05/01/22 04:00 Lymphocytes % (Manual) 17.0 % (13.4-35.0) 05/01/22 04:00 Reactive Lymphs % (Man) 0 % 05/01/22 04:00 Monocytes % (Manual) 9.0 % (0.0-7.3) H 05/01/22 04:00 Eosinophils % (Manual) 3.0 % (0.0-4.3) 05/01/22 04:00 Basophils % (Manual) 0 % (0.0-1.8) 05/01/22 04:00 Metamyelocytes % 0 % 05/01/22 04:00 Myelocytes % 0 % 05/01/22 04:00 Promyelocytes % 0 % 05/01/22 04:00 Blast Cells % 0 % 05/01/22 04:00 Nucleated RBC % Not Reportable 05/01/22 04:00 Seg Neutrophils # 7.5 K/mm3 (1.8-7.7) 04/29/22 06:24 Seg Neutrophils # Man 6.2 K/mm3 (1.8-7.7) 05/01/22 04:00 Band Neutrophils # 0.0 K/mm3 05/01/22 04:00 Lymphocytes # (Manual) 1.5 K/mm3 (1.2-5.4) 05/01/22 04:00 Abs React Lymphs (Man) 0.0 K/mm3 05/01/22 04:00 Monocytes # (Manual) 0.8 K/mm3 (0.0-0.8) 05/01/22 04:00 Eosinophils # (Manual) 0.3 K/mm3 (0.0-0.4) 05/01/22 04:00 Basophils # (Manual) 0.0 K/mm3 (0.0-0.1) 05/01/22 04:00 Metamyelocytes # 0.0 K/mm3 05/01/22 04:00 Myelocytes # 0.0 K/mm3 05/01/22 04:00 Promyelocytes # 0.0 K/mm3 05/01/22 04:00 Blast Cells # 0.0 K/mm3 05/01/22 04:00 WBC Morphology Not Reportable 05/01/22 04:00 Hypersegmented Neuts Not Reportable 05/01/22 04:00 Hyposegmented Neuts Not Reportable 05/01/22 04:00 Hypogranular Neuts Not Reportable 05/01/22 04:00 Smudge Cells Not Reportable 05/01/22 04:00 Toxic Granulation Not Reportable 05/01/22 04:00 Toxic Vacuolation Not Reportable 05/01/22 04:00 Dohle Bodies Not Reportable 05/01/22 04:00 Pelger-Huet Anomaly Not Reportable 05/01/22 04:00 Jigar Rods Not Reportable 05/01/22 04:00 Platelet Estimate Consistent w auto 05/01/22 04:00 Clumped Platelets Not Reportable 05/01/22 04:00 Plt Clumps, EDTA Not Reportable 05/01/22 04:00 Large Platelets Not Reportable 05/01/22 04:00 Giant Platelets Not Reportable 05/01/22 04:00 Platelet Satelliting Not Reportable 05/01/22 04:00 Plt Morphology Comment Giant platelets 05/01/22 04:00 RBC Morphology Not Reportable 05/01/22 04:00 Dimorphic RBCs Not Reportable 05/01/22 04:00 Polychromasia Not Reportable 05/01/22 04:00 Hypochromasia Not Reportable 05/01/22 04:00 Poikilocytosis Not Reportable 05/01/22 04:00 Anisocytosis Not Reportable 05/01/22 04:00 Microcytosis Not Reportable 05/01/22 04:00 Macrocytosis Not Reportable 05/01/22 04:00 Spherocytes Not Reportable 05/01/22 04:00 Pappenheimer Bodies Not Reportable 05/01/22 04:00 Sickle Cells Not Reportable 05/01/22 04:00 Target Cells Not Reportable 05/01/22 04:00 Tear Drop Cells Not Reportable 05/01/22 04:00 Ovalocytes Not Reportable 05/01/22 04:00 Helmet Cells Not Reportable 05/01/22 04:00 [place] Bodies Not Reportable 05/01/22 04:00 [place] Rings Not Reportable 05/01/22 04:00 Nicolas Cells Not Reportable 05/01/22 04:00 Bite Cells Not Reportable 05/01/22 04:00 Crenated Cell Not Reportable 05/01/22 04:00 Elliptocytes Not Reportable 05/01/22 04:00 Acanthocytes (Spur) Not Reportable 05/01/22 04:00 Rouleaux Not Reportable 05/01/22 04:00 Hemoglobin C Crystals Not Reportable 05/01/22 04:00 Schistocytes Not Reportable 05/01/22 04:00 Malaria parasites Not Reportable 05/01/22 04:00 Tony Bodies Not Reportable 05/01/22 04:00 Hem Pathologist Commnt No 05/01/22 04:00 PT 20.4 Sec. (12.2-14.9) H 05/02/22 05:51 INR 1.50 (0.87-1.13) H 05/02/22 05:51 Sodium 140 mmol/L (137-145) 05/01/22 04:00 Potassium 3.4 mmol/L (3.6-5.0) L 05/01/22 04:00 Chloride 102.9 mmol/L (98-107) 05/01/22 04:00 Carbon Dioxide 25 mmol/L (22-30) 05/01/22 04:00 Anion Gap 16 mmol/L 05/01/22 04:00 BUN 12 mg/dL (9-20) 05/01/22 04:00 Creatinine 0.8 mg/dL (0.8-1.3) 05/01/22 04:00 Estimated GFR > 60 ml/min 05/01/22 04:00 BUN/Creatinine Ratio 15 % 05/01/22 04:00 Glucose 84 mg/dL (75-100) 05/01/22 04:00 Lactic Acid 1.20 mmol/L (0.7-2.0) 04/28/22 13:30 Calcium 8.1 mg/dL (8.4-10.2) L 05/01/22 04:00 Total Bilirubin 0.40 mg/dL (0.1-1.2) 04/30/22 11:04 Direct Bilirubin < 0.2 mg/dL (0-0.2) 04/30/22 11:04 Indirect Bilirubin 0.2 mg/dL 04/30/22 11:04 AST 52 units/L (5-40) H 04/30/22 11:04 ALT 34 units/L (7-56) 04/30/22 11:04 Alkaline Phosphatase 1119 units/L (35-129) H 05/01/22 04:00 Total Protein 6.8 g/dL (6.3-8.2) 04/30/22 11:04 Albumin 2.5 g/dL (3.9-5) L 04/30/22 11:04 Albumin/Globulin Ratio 0.6 % 04/30/22 11:04 Procalcitonin 0.80 ng/mL (<0.15) 04/29/22 19:31 Urine Color Dark yellow (Yellow) 04/28/22 10:29 Urine Turbidity Cloudy (Clear) 04/28/22 10:29 Urine pH 6.0 (5.0-7.0) 04/28/22 10:29 Ur Specific [place] 1.025 (1.003-1.030) 04/28/22 10:29 Urine Protein 30 mg/dl mg/dL (Negative) 04/28/22 10:29 Urine Glucose (UA) Negative mg/dL (Negative) 04/28/22 10:29 Urine Ketones Negative mg/dL (Negative) 04/28/22 10:29 Urine Blood Trace (Negative) 04/28/22 10:29 Urine Nitrite Negative (Negative) 04/28/22 10:29 Ur Reducing Substances Not Reportable 04/28/22 10:29 Urine Bilirubin Small (Negative) 04/28/22 10:29 Urine Ictotest Negative (Negative) 04/28/22 10:29 Urine Urobilinogen 1.0 mg/dL (<2.0) 04/28/22 10:29 Ur Leukocyte Esterase Negative (Negative) 04/28/22 10:29 Urine WBC (Auto) 4.0 /HPF (0.0-6.0) 04/28/22 10:29 Urine RBC (Auto) 1.0 /HPF (0.0-6.0) 04/28/22 10:29 Urine Bacteria (Auto) 1+ /HPF (Negative) 04/28/22 10:29 Urine Mucus 2+ /HPF 04/28/22 10:29 Urine Opiates Screen Negative 04/29/22 Unknown Urine Methadone Screen Negative 04/29/22 Unknown Ur Barbiturates Screen Negative 04/29/22 Unknown Ur Phencyclidine Scrn Negative 04/29/22 Unknown Ur Amphetamines Screen Negative 04/29/22 Unknown U Benzodiazepines Scrn Negative 04/29/22 Unknown Urine Cocaine Screen Negative 04/29/22 Unknown U Marijuana (THC) Screen Negative 04/29/22 Unknown Drugs of Abuse Note Disclamer 04/29/22 Unknown SARS-CoV-2 (PCR) Negative (Negative) 04/29/22 12:10 Microbiology: Microbiology 04/28/22 09:39 Peripheral/Venous Blood Culture - Preliminary NO GROWTH AFTER 72 HOURS 04/28/22 09:39 Peripheral/Venous Blood Culture - Preliminary NO GROWTH AFTER 72 HOURS Tao/IV: Voiding Method Urinal Active Medications - Current Medications Current Medications: Generic Name Dose Route Start Last Admin Trade Name Freq PRN Reason Stop Dose Admin Abacavir Sulfate 600 mg 04/29/22 10:00 05/01/22 10:23 Abacavir 300 Mg Tab PO 600 mg QDAY BRINDA Administration Acetaminophen 650 mg 04/28/22 16:00 Acetaminophen 325 Mg Tab PO Q4H PRN Pain MILD(1-3)/Fever >100.5/FLORES Albuterol 2.5 mg 04/28/22 16:00 Albuterol 2.5 Mg/3 Ml Nebu IH Q4HRT PRN Shortness Of Breath Atorvastatin Calcium 40 mg 04/28/22 22:00 05/01/22 21:01 Atorvastatin 40 Mg Tab PO 40 mg QHS BRINDA Administration Azithromycin 500 mg 04/29/22 10:00 05/01/22 10:22 Azithromycin 250 Mg Tab PO 05/03/22 10:01 500 mg QDAY BRINDA Administration Protocol Dolutegravir Sodium 50 mg 04/29/22 10:00 05/01/22 10:22 Dolutegravir 50 Mg Tab PO 50 mg QDAY BRINDA Administration Escitalopram Oxalate 10 mg 04/28/22 17:00 05/01/22 10:23 Escitalopram 10 Mg Tab PO 10 mg DAILY BRINDA Administration Famotidine 20 mg 04/28/22 17:00 05/01/22 10:23 Famotidine 20 Mg Tab PO 20 mg DAILY BRINDA Administration Furosemide 40 mg 04/28/22 17:00 05/01/22 10:25 Furosemide 40 Mg Tab PO 40 mg DAILY BRINDA Administration Hydromorphone HCl 0.5 mg 04/28/22 16:00 Hydromorphone 0.5 Mg/0.5 Ml Inj IV Q23H PRN Pain , Severe (7-10) Sodium Chloride 1,000 mls @ 125 mls/hr 04/28/22 16:00 05/02/22 00:34 Nacl 0.9% 1000 Ml IV 125 mls/hr DIRECT BRINDA Administration Ceftriaxone Sodium 2 gm in 100 mls @ 200 mls/hr 04/28/22 16:00 05/01/22 18:05 Rocephin/Ns 2 Gm/100 Ml IV 05/03/22 16:59 200 mls/hr Q24H BRNIDA Administration Protocol Phytonadione 10 mg/ Sodium 51 mls @ 100 mls/hr 05/02/22 08:58 Chloride IV 05/02/22 09:28 ONCE ONE Lamivudine 300 mg 04/29/22 10:00 05/01/22 10:22 Lamivudine 150 Mg Tab PO 300 mg QDAY BRINDA Administration Lisinopril 40 mg 04/29/22 10:00 05/01/22 10:26 Lisinopril 40 Mg Tab PO 40 mg QDAY BRINDA Administration Lorazepam 1 mg 05/02/22 08:55 Lorazepam 2 Mg/Ml Vial IV 05/02/22 08:56 ONCE ONE Nifedipine 30 mg 04/29/22 10:00 05/01/22 11:19 Nifedipine Xl 30 Mg Tab PO 30 mg DAILY BRINDA Administration Ondansetron HCl 4 mg 04/28/22 16:00 05/01/22 12:09 Ondansetron 4 Mg/2 Ml Inj IV 4 mg Q8H PRN Administration Nausea And Vomiting Oxycodone/Acetaminophen 1 tab 04/28/22 16:00 04/28/22 22:20 Oxycodone /Acetaminophen 5-325mg Tab PO 1 tab Q16H PRN Administration Pain, Moderate (4-6) Sodium Chloride 10 ml 04/28/22 16:00 05/01/22 21:02 Sodium Chloride 0.9% 10 Ml Flush Syringe IV 10 ml BID BRINDA Administration Sodium Chloride 10 ml 04/28/22 16:00 Sodium Chloride 0.9% 10 Ml Flush Syringe IV PRN PRN LINE FLUSH Warfarin Sodium 7.5 mg 05/01/22 17:00 05/01/22 18:05 Warfarin 7.5 Mg Tab PO 05/02/22 16:59 7.5 mg DAILY@1700 NR Administration Nutrition/Malnutrition Assess - Dietary Evaluation Nutrition/Malnutrition Findings: Nutrition Notes Start: 04/29/22 11:14 Freq: Status: Active Protocol: Document 04/29/22 11:14 STEFF (Rec: 04/29/22 11:53 STEFF [email or web address]) Nutrition Notes Initial or Follow up Assessment Current Diagnosis Hypertension,Stroke, Hyperlipidemia Other Pertinent Diagnosis Pneumonia, SIRS, Lactic Acidosis, Dehydration, OHS, HIV/AIDS, ... Current Diet Regular Diet (since D 04/28). Labs/Tests 04/29: Ca 7.9. Pertinent Medications 04/29: Coumadin 7.5 mg, others nutritionally unremarkable. 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 Weight Status Obese Subjective/Other Information RD consult for warfarine use assessment. No reports available on Pt's PO intake of meals at the time , will assess at F/U. Pt is on Room Air, O2 saturation @ 96%, according to Physical Assessment History notes. Pt presents an uspecified area of concern for skin risk at the time, according to Physical Assessment History notes. Pt still on critical condition , not a candidate for nutrition education at this time, will assess feasibility at F/U. Percent of energy/protein needs met: Prescribed Regular Diet provides for energy/protein needs (2,289 Kcal/89 g) during LOS. Burn Absent Trauma Absent GI Symptoms None Food Allergy No Skin Integrity/Comment Unspecified area of concern. Minimum of two criteria No Fluid Accumulation N/A Reduced Acquisitions Assistant Strength N/A (non-severe) Protein-Calorie Malnutrition N\A #1 Nutrition Diagnosis No nutrition diagnosis at this time Is patient on ventilator? No Is Patient Ambulatory and/or Out of Bed Yes REE-(Robbins-St. Jeor-ambulatory/OOB) [ 2782.494 NUTR.[id number]] Kcal/Kg value to use for calculation 19 Approximate Energy Requirements Using 2310 kcal/Kg Calculation Used for Recommendations Kcal/kg Additional Notes Protein: 0.8-1 g/Kg AdjBW; 83- 104 g/day. Fluids: 1 ml/Kcal, or as per MD. Nutrition Intervention Change Diet Order: Continue Regular Diet. Follow-Up By: 05/06/22 Additional Comments Nutrition education will be provided at F/U, if feasible. Continue monitoring food tolerance, %PO intake of meals , and BM.
[2022-05-02] MEDS ORDERED: PHYTONADIONE(ADULT ONLY) 10 MG in SODIUM CHLORIDE 0.9% 50 ML IV ONE (10:00)
[2022-05-02] MEDS: FAMOTIDINE 20 MG TAB PO SCH (10:27)
[2022-05-02] MEDS: FUROSEMIDE 40 MG TAB PO SCH (10:27)
[2022-05-02] MEDS: AZITHROMYCIN 250 MG TAB PO SCH (10:27)
[2022-05-02] MEDS: DOLUTEGRAVIR 50 MG TAB PO SCH (10:28)
[2022-05-02] MEDS: NIFEdipine XL 30 MG TAB PO SCH (10:28)
[2022-05-02] MEDS: LISINOPRIL 40 MG TAB PO SCH (10:28)
[2022-05-02] MEDS: ABACAVIR 300 MG TAB PO SCH (10:29)
[2022-05-02] MEDS: ESCITALOPRAM 10 MG TAB PO SCH (10:29)
[2022-05-02 10:55] LABS: INR 1.51 (0.87-1.13)
[2022-05-02 11:03] LABS: Alanine Aminotransferase 61 units/L (7-56); Albumin 2.7 g/dL (3.9-5); BUN/Creatinine Ratio 14; Blood Urea Nitrogen 13 mg/dL (9-20); Calcium 7.8 mg/dL (8.4-10.2); Hemolysis Index 1; Iron 52 ug/dL (49-181); Total Iron Binding Capacity 140 mcg/dL (250-450)
[2022-05-02 11:13] LABS: Hepatitis C Virus Antibody Non-Reactive (NonReactive)
--- NOTE | 2022-05-02 11:28 | Progress Note ---
Assessment and Plan Cultures: COVID-19 PCR: Negative 04/28/2022 blood culture: No growth A/P: 51-year-old male with HIV on Triumeq, prior CVA, hypertension, hyperlipidemia was admitted to the hospital with weakness and not feeling well: #Atypical pneumonia #HIV disease: positive for about 20 years, has been undetectable on Triumeq, used to follow-up at [facility], recently moved to [place], his heart doctor has referred him to a local provider. #Sepsis: resolved #Elevated alkaline phosphatase: GI following, awaiting MRCP. #Mild thrombocytopenia Recs: -Continue Triumeq, split into abacavir, lamivudine, dolutegravir based on hospital formulary -Continue empiric antibiotics for pneumonia, , ending tomorrow -Follow-up GI recs, follow-up MRI due to elevated LFTs especially alkaline phosphatase -will follow up with HIV provider upon discharge. He does not think he can come to our ID clinic at [place] because he doesn't drive and it might be too far for him. Has enough Triumeq at home Lokesh Garcia MD, FACP, [facility] O: [phone] F: [phone] C: [phone] Subjective Date of service: 05/02/22 Principal diagnosis: Elevated LFT Interval history: No fever. No cough. Remains on room air. Unable to complete MRI due to claustrophobia yesterday. Objective - Exam Narrative Exam: Physical Exam: Constitutional: Alert, cooperative. No acute distress Head, Ears, Nose: Normocephalic, atraumatic. External ears, nose normal Eyes: Conjunctivae/corneas clear. No icterus. No ptosis. Neck: Supple, no meningeal signs Oral: no thrush Cardiovascular: S1, S2 + Respiratory: Good air entry, clear to auscultation bilaterally GI: Soft, non-tender; bowel sounds normal. No peritoneal signs Musculoskeletal: No pedal edema, no cyanosis. Skin: No rash or abscess Hem/Lymphatic: No palpable cervical or supraclavicular nodes. No lymphangitis Psych: Mood ok. Affect normal Neurological: Awake, alert, oriented - Constitutional Vitals: Vital Signs Temp Pulse Resp BP Pulse Ox 98.7 F 96 H 18 156/107 95 05/02/22 10:24 05/02/22 10:28 05/02/22 10:24 05/02/22 10:28 05/02/22 10:24 Temperature -Last 24 Hours Temperature 98.7 F Temperature 98.6 F Temperature 97.9 F Temperature 99.4 F - Labs CBC & Chem 7: 05/01/22 04:00 05/02/22 09:55 Labs: Abnormal lab results 05/02/22 05/02/22 05/02/22 Range/Units 05:51 09:55 09:55 PT 20.4 H 20.5 H (12.2-14.9) Sec. INR 1.50 H 1.51 H (0.87-1.13) Glucose (75-100) mg/dL Calcium (8.4-10.2) mg/dL TIBC 140 L (250-450) mcg/dL AST (5-40) units/L ALT (7-56) units/L Alkaline Phosphatase (35-129) units/L Total Protein (6.3-8.2) g/dL Albumin (3.9-5) g/dL 05/02/22 Range/Units 09:55 PT (12.2-14.9) Sec. INR (0.87-1.13) Glucose 101 H (75-100) mg/dL Calcium 7.8 L (8.4-10.2) mg/dL TIBC (250-450) mcg/dL AST 95 H (5-40) units/L ALT 61 H (7-56) units/L Alkaline Phosphatase 1312 H (35-129) units/L Total Protein 6.1 L (6.3-8.2) g/dL Albumin 2.7 L (3.9-5) g/dL
[2022-05-02] MEDS ORDERED: LORazepam 2 MG/ML VIAL IV ONE (14:08)
[2022-05-02] MEDS: cefTRIAXone/NS 2 GM/100 ML 2 GM/100 ML BAG IV SCH (16:37)
[2022-05-02] MEDS ORDERED: WARFARIN 7.5 MG TAB PO SCH (17:00)
[2022-05-03] MEDS: SODIUM CHLORIDE 0.9% 1000 ML 1,000 ML IV SCH ×2 (06:02→15:43)
[2022-05-03 06:07] LABS: Hematocrit 43.6 % (35.5-45.6); Hemoglobin 14.8 gm/dl (11.8-15.2); Mean Corpuscular HGB Conc 34 % (32-34); Mean Corpuscular Volume 93 fl (84-94); Platelet Count 204 K/mm3 (140-440); Red Cell Distribution Width 14.1 % (13.2-15.2)
[2022-05-03 06:13] LABS: BUN/Creatinine Ratio 14; Blood Urea Nitrogen 13 mg/dL (9-20); Calcium 8.3 mg/dL (8.4-10.2); Hemolysis Index 2
[2022-05-03 06:21] LABS: INR 1.14 (0.87-1.13)
[2022-05-03 07:01] LABS: Basophils % (Manual) 0 % (0.0-1.8); Total Cells Counted 100
[2022-05-03 07:02] LABS: Platelet Estimate Consistent w Auto
[2022-05-03] MEDS: FUROSEMIDE 40 MG TAB PO SCH (10:18)
[2022-05-03] MEDS: DOLUTEGRAVIR 50 MG TAB PO SCH (10:18)
[2022-05-03] MEDS: FAMOTIDINE 20 MG TAB PO SCH (10:18)
[2022-05-03] MEDS: AZITHROMYCIN 250 MG TAB PO SCH (10:18)
[2022-05-03] MEDS: NIFEdipine XL 30 MG TAB PO SCH (10:18)
[2022-05-03] MEDS: LISINOPRIL 40 MG TAB PO SCH (10:19)
[2022-05-03] MEDS: ABACAVIR 300 MG TAB PO SCH (10:20)
[2022-05-03] MEDS: ESCITALOPRAM 10 MG TAB PO SCH (10:20)
--- NOTE | 2022-05-03 10:32 | Progress Note ---
Assessment and Plan Assessment and plan: 51 YO Male with HIV on antiretroviral therapy, CVA with LHP, HTN, HLD presents to ED for evaluation of generalized weakness over the past 2 days with diminished oral intake. Patient stated that while attempting to get out of bed he experienced a sudden onset of weakness and fell from a standing position landing on the floor. Patient denied injury. EMS was notified and upon arrival the patient was found to be in distress and subsequent transported to [facility] for further care and evaluation of the aforementioned symptoms. The patient was seen and evaluated in the emergency department. All lab and imaging studies reviewed. Patient underwent chest x-ray and was found to have pneumonia, sepsis, and HIV infection. Sepsis. POA. Patient meets criteria given the fever, tachycardia and diagnosis of pneumonia. Suspected COVID-pneumonia Bilateral lower lobe pneumonia Acute hypoxic respiratory failure. HIV Obesity hypoventilation syndrome Elevated alkaline phosphatase. 04/29/2022. Await PCR for COVID-pneumonia. If PCR is positive and patient hypoxic, we will initiate IV dexamethasone/remdesivir. Patient with only 2 L of oxygen at present and does not appear to be severely hypoxic. Continue IV antibiotics until procalcitonin level resulted. ID is consulted for further evaluation. Follow-up blood cultures. 04/30/2022. COVID PCR was found to be negative. Continue anti-retrovirals per ID recommendations. Continue empiric antibiotics for pneumonia. We will change to Ceftin 500 mg p.o. twice daily plus azithromycin at discharge. Abdominal ultrasound revealed mild diffuse intrahepatic biliary prominence without obvious obstructing lesion. No evidence of cholelithiasis 05/01/2022. Patient for MRCP for elevated alkaline phosphatase. GI following. Continue IV antibiotics for pneumonia. Patient will receive Ceftin and azithromycin at discharge. Await placement 05/02/2022. Patient unable to do MRCP yesterday due to claustrophobia. We will give Ativan and attempt repeat MRCP today. Follow-up GGT levels to ensure hepatic source. Continue antibiotics and switch to Ceftin/azithromycin at discharge. 05/03/2022. Patient still unable to do MRCP due to claustrophobia. Alkaline phosphatase remains elevated. Follow-up GGT levels to ensure hepatic source. Continue antibiotics and switch to Ceftin/azithromycin at discharge. Await placement History Interval history: No new issues overnight Hospitalist Physical - Constitutional Vitals: Temp Pulse Resp BP Pulse Ox 98.4 F 100 H 18 153/101 95 05/03/22 04:09 05/03/22 10:19 05/03/22 04:09 05/03/22 10:19 05/03/22 04:09 General appearance: Present: no acute distress, obese - EENT Eyes: Present: PERRL, EOM intact ENT: hearing intact, clear oral mucosa, dentition normal - Neck Neck: Present: supple, normal ROM - Respiratory Respiratory effort: normal Respiratory: bilateral: CTA - Cardiovascular Rhythm: regular Heart Sounds: Present: S1 & S2. Absent: gallop, rub - Extremities Extremities: no ischemia, No edema, Full ROM - Abdominal General gastrointestinal: soft, non-tender, non-distended, normal bowel sounds - Integumentary Integumentary: Present: clear, warm, dry - Neurologic Neurologic: CNII-XII intact, moves all extremities Results - Labs CBC & Chem 7: 05/03/22 04:54 05/03/22 04:54 Labs: Laboratory Last Values WBC 10.9 K/mm3 (4.5-11.0) 05/03/22 04:54 RBC 4.70 M/mm3 (3.65-5.03) 05/03/22 04:54 Hgb 14.8 gm/dl (11.8-15.2) 05/03/22 04:54 Hct 43.6 % (35.5-45.6) 05/03/22 04:54 MCV 93 fl (84-94) 05/03/22 04:54 MCH 31 pg (28-32) 05/03/22 04:54 MCHC 34 % (32-34) 05/03/22 04:54 RDW 14.1 % (13.2-15.2) 05/03/22 04:54 Plt Count 204 K/mm3 (140-440) 05/03/22 04:54 Lymph % (Auto) 14.1 % (13.4-35.0) 04/29/22 06:24 [place] % (Auto) 11.7 % (0.0-7.3) H 04/29/22 06:24 Eos % (Auto) 1.4 % (0.0-4.3) 04/29/22 06:24 Baso % (Auto) 0.2 % (0.0-1.8) 04/29/22 06:24 Lymph # (Auto) 1.5 K/mm3 (1.2-5.4) 04/29/22 06:24 [place] # (Auto) 1.2 K/mm3 (0.0-0.8) H 04/29/22 06:24 Eos # (Auto) 0.1 K/mm3 (0.0-0.4) 04/29/22 06:24 Baso # (Auto) 0.0 K/mm3 (0.0-0.1) 04/29/22 06:24 Add Manual Diff Complete 05/03/22 04:54 Total Counted 100 05/03/22 04:54 Seg Neutrophils % 72.6 % (40.0-70.0) H 04/29/22 06:24 Seg Neuts % (Manual) 71.0 % (40.0-70.0) H 05/03/22 04:54 Band Neutrophils % 0 % 05/03/22 04:54 Lymphocytes % (Manual) 19.0 % (13.4-35.0) 05/03/22 04:54 Reactive Lymphs % (Man) 0 % 05/03/22 04:54 Monocytes % (Manual) 4.0 % (0.0-7.3) 05/03/22 04:54 Eosinophils % (Manual) 3.0 % (0.0-4.3) 05/03/22 04:54 Basophils % (Manual) 0 % (0.0-1.8) 05/03/22 04:54 Metamyelocytes % 3.0 % 05/03/22 04:54 Myelocytes % 0 % 05/03/22 04:54 Promyelocytes % 0 % 05/03/22 04:54 Blast Cells % 0 % 05/03/22 04:54 Nucleated RBC % Not Reportable 05/03/22 04:54 Seg Neutrophils # 7.5 K/mm3 (1.8-7.7) 04/29/22 06:24 Seg Neutrophils # Man 7.7 K/mm3 (1.8-7.7) 05/03/22 04:54 Band Neutrophils # 0.0 K/mm3 05/03/22 04:54 Lymphocytes # (Manual) 2.1 K/mm3 (1.2-5.4) 05/03/22 04:54 Abs React Lymphs (Man) 0.0 K/mm3 05/03/22 04:54 Monocytes # (Manual) 0.4 K/mm3 (0.0-0.8) 05/03/22 04:54 Eosinophils # (Manual) 0.3 K/mm3 (0.0-0.4) 05/03/22 04:54 Basophils # (Manual) 0.0 K/mm3 (0.0-0.1) 05/03/22 04:54 Metamyelocytes # 0.3 K/mm3 05/03/22 04:54 Myelocytes # 0.0 K/mm3 05/03/22 04:54 Promyelocytes # 0.0 K/mm3 05/03/22 04:54 Blast Cells # 0.0 K/mm3 05/03/22 04:54 WBC Morphology Not Reportable 05/03/22 04:54 Hypersegmented Neuts Not Reportable 05/03/22 04:54 Hyposegmented Neuts Not Reportable 05/03/22 04:54 Hypogranular Neuts Not Reportable 05/03/22 04:54 Smudge Cells Not Reportable 05/03/22 04:54 Toxic Granulation Not Reportable 05/03/22 04:54 Toxic Vacuolation Not Reportable 05/03/22 04:54 Dohle Bodies Not Reportable 05/03/22 04:54 Pelger-Huet Anomaly Not Reportable 05/03/22 04:54 Jigar Rods Not Reportable 05/03/22 04:54 Platelet Estimate Consistent w auto 05/03/22 04:54 Clumped Platelets Not Reportable 05/03/22 04:54 Plt Clumps, EDTA Not Reportable 05/03/22 04:54 Large Platelets Not Reportable 05/03/22 04:54 Giant Platelets Not Reportable 05/03/22 04:54 Platelet Satelliting Not Reportable 05/03/22 04:54 Plt Morphology Comment Not Reportable 05/03/22 04:54 RBC Morphology Not Reportable 05/03/22 04:54 Dimorphic RBCs Not Reportable 05/03/22 04:54 Polychromasia Not Reportable 05/03/22 04:54 Hypochromasia Not Reportable 05/03/22 04:54 Poikilocytosis Not Reportable 05/03/22 04:54 Anisocytosis Not Reportable 05/03/22 04:54 Microcytosis Not Reportable 05/03/22 04:54 Macrocytosis Not Reportable 05/03/22 04:54 Spherocytes Not Reportable 05/03/22 04:54 Pappenheimer Bodies Not Reportable 05/03/22 04:54 Sickle Cells Not Reportable 05/03/22 04:54 Target Cells Not Reportable 05/03/22 04:54 Tear Drop Cells Not Reportable 05/03/22 04:54 Ovalocytes Not Reportable 05/03/22 04:54 Helmet Cells Not Reportable 05/03/22 04:54 Sheldon-[place] Bodies Not Reportable 05/03/22 04:54 [place] Rings Not Reportable 05/03/22 04:54 Nicolas Cells Not Reportable 05/03/22 04:54 Bite Cells Not Reportable 05/03/22 04:54 Crenated Cell Not Reportable 05/03/22 04:54 Elliptocytes Not Reportable 05/03/22 04:54 Acanthocytes (Spur) Not Reportable 05/03/22 04:54 Rouleaux Not Reportable 05/03/22 04:54 Hemoglobin C Crystals Not Reportable 05/03/22 04:54 Schistocytes Not Reportable 05/03/22 04:54 Malaria parasites Not Reportable 05/03/22 04:54 Tony Bodies Not Reportable 05/03/22 04:54 Hem Pathologist Commnt No 05/03/22 04:54 PT 16.2 Sec. (12.2-14.9) H 05/03/22 04:54 INR 1.14 (0.87-1.13) H 05/03/22 04:54 Sodium 137 mmol/L (137-145) 05/03/22 04:54 Potassium 3.3 mmol/L (3.6-5.0) L 05/03/22 04:54 Chloride 101.9 mmol/L (98-107) 05/03/22 04:54 Carbon Dioxide 26 mmol/L (22-30) 05/03/22 04:54 Anion Gap 12 mmol/L 05/03/22 04:54 BUN 13 mg/dL (9-20) 05/03/22 04:54 Creatinine 0.9 mg/dL (0.8-1.3) 05/03/22 04:54 Estimated GFR > 60 ml/min 05/03/22 04:54 BUN/Creatinine Ratio 14 % 05/03/22 04:54 Glucose 82 mg/dL (75-100) 05/03/22 04:54 Lactic Acid 1.20 mmol/L (0.7-2.0) 04/28/22 13:30 Calcium 8.3 mg/dL (8.4-10.2) L 05/03/22 04:54 Iron 52 ug/dL (49-181) 05/02/22 09:55 TIBC 140 mcg/dL (250-450) L 05/02/22 09:55 Total Bilirubin 0.30 mg/dL (0.1-1.2) 05/02/22 09:55 Direct Bilirubin < 0.2 mg/dL (0-0.2) 04/30/22 11:04 Indirect Bilirubin 0.2 mg/dL 04/30/22 11:04 AST 95 units/L (5-40) H 05/02/22 09:55 ALT 61 units/L (7-56) H 05/02/22 09:55 Alkaline Phosphatase 1312 units/L (35-129) H 05/02/22 09:55 Total Protein 6.1 g/dL (6.3-8.2) L 05/02/22 09:55 Albumin 2.7 g/dL (3.9-5) L 05/02/22 09:55 Albumin/Globulin Ratio 0.8 % 05/02/22 09:55 Procalcitonin 0.80 ng/mL (<0.15) 04/29/22 19:31 Urine Color Dark yellow (Yellow) 04/28/22 10:29 Urine Turbidity Cloudy (Clear) 04/28/22 10:29 Urine pH 6.0 (5.0-7.0) 04/28/22 10:29 Ur Specific [place] 1.025 (1.003-1.030) 04/28/22 10:29 Urine Protein 30 mg/dl mg/dL (Negative) 04/28/22 10:29 Urine Glucose (UA) Negative mg/dL (Negative) 04/28/22 10:29 Urine Ketones Negative mg/dL (Negative) 04/28/22 10:29 Urine Blood Trace (Negative) 04/28/22 10:29 Urine Nitrite Negative (Negative) 04/28/22 10:29 Ur Reducing Substances Not Reportable 04/28/22 10:29 Urine Bilirubin Small (Negative) 04/28/22 10:29 Urine Ictotest Negative (Negative) 04/28/22 10:29 Urine Urobilinogen 1.0 mg/dL (<2.0) 04/28/22 10:29 Ur Leukocyte Esterase Negative (Negative) 04/28/22 10:29 Urine WBC (Auto) 4.0 /HPF (0.0-6.0) 04/28/22 10:29 Urine RBC (Auto) 1.0 /HPF (0.0-6.0) 04/28/22 10:29 Urine Bacteria (Auto) 1+ /HPF (Negative) 04/28/22 10:29 Urine Mucus 2+ /HPF 04/28/22 10:29 Urine Opiates Screen Negative 04/29/22 Unknown Urine Methadone Screen Negative 04/29/22 Unknown Ur Barbiturates Screen Negative 04/29/22 Unknown Ur Phencyclidine Scrn Negative 04/29/22 Unknown Ur Amphetamines Screen Negative 04/29/22 Unknown U Benzodiazepines Scrn Negative 04/29/22 Unknown Urine Cocaine Screen Negative 04/29/22 Unknown U Marijuana (THC) Screen Negative 04/29/22 Unknown Drugs of Abuse Note Disclamer 04/29/22 Unknown SARS-CoV-2 (PCR) Negative (Negative) 04/29/22 12:10 Hepatitis A IgM Ab Non-reactive (NonReactive) 05/02/22 09:55 Hepatitis C Antibody Non-reactive (NonReactive) 05/02/22 09:55 Microbiology: Microbiology 04/28/22 09:39 Peripheral/Venous Blood Culture - Preliminary NO GROWTH AFTER 4 DAYS 04/28/22 09:39 Peripheral/Venous Blood Culture - Preliminary NO GROWTH AFTER 4 DAYS Tao/IV: Voiding Method Urinal Active Medications - Current Medications Current Medications: Generic Name Dose Route Start Last Admin Trade Name Freq PRN Reason Stop Dose Admin Abacavir Sulfate 600 mg 04/29/22 10:00 05/03/22 10:20 Abacavir 300 Mg Tab PO 600 mg QDAY BRINDA Administration Acetaminophen 650 mg 04/28/22 16:00 Acetaminophen 325 Mg Tab PO Q4H PRN Pain MILD(1-3)/Fever >100.5/FLORES Albuterol 2.5 mg 04/28/22 16:00 Albuterol 2.5 Mg/3 Ml Nebu IH Q4HRT PRN Shortness Of Breath Atorvastatin Calcium 40 mg 04/28/22 22:00 05/02/22 21:55 Atorvastatin 40 Mg Tab PO 40 mg QHS BRINDA Administration Dolutegravir Sodium 50 mg 04/29/22 10:00 05/03/22 10:18 Dolutegravir 50 Mg Tab PO 50 mg QDAY BRINDA Administration Escitalopram Oxalate 10 mg 04/28/22 17:00 05/03/22 10:20 Escitalopram 10 Mg Tab PO 10 mg DAILY BRINDA Administration Famotidine 20 mg 04/28/22 17:00 05/03/22 10:18 Famotidine 20 Mg Tab PO 20 mg DAILY BRINDA Administration Furosemide 40 mg 04/28/22 17:00 05/03/22 10:18 Furosemide 40 Mg Tab PO 40 mg DAILY BRINDA Administration Hydromorphone HCl 0.5 mg 04/28/22 16:00 Hydromorphone 0.5 Mg/0.5 Ml Inj IV Q23H PRN Pain , Severe (7-10) Sodium Chloride 1,000 mls @ 125 mls/hr 04/28/22 16:00 05/03/22 06:02 Nacl 0.9% 1000 Ml IV 125 mls/hr DIRECT BRINDA Administration Ceftriaxone Sodium 2 gm in 100 mls @ 200 mls/hr 04/28/22 16:00 05/02/22 16:37 Rocephin/Ns 2 Gm/100 Ml IV 05/03/22 16:59 200 mls/hr Q24H BRINDA Administration Protocol Lamivudine 300 mg 04/29/22 10:00 05/02/22 14:40 Lamivudine 150 Mg Tab PO 300 mg QDAY BRINDA Administration Lisinopril 40 mg 04/29/22 10:00 05/03/22 10:19 Lisinopril 40 Mg Tab PO 40 mg QDAY BRINDA Administration Nifedipine 30 mg 04/29/22 10:00 05/03/22 10:18 Nifedipine Xl 30 Mg Tab PO 30 mg DAILY BRINDA Administration Ondansetron HCl 4 mg 04/28/22 16:00 05/01/22 12:09 Ondansetron 4 Mg/2 Ml Inj IV 4 mg Q8H PRN Administration Nausea And Vomiting Oxycodone/Acetaminophen 1 tab 04/28/22 16:00 08/01/22 22:20 Oxycodone /Acetaminophen 5-325mg Tab PO 1 tab Q16H PRN Administration Pain, Moderate (4-6) Sodium Chloride 10 ml 04/28/22 16:00 05/03/22 10:21 Sodium Chloride 0.9% 10 Ml Flush Syringe IV 10 ml BID BRINDA Administration Sodium Chloride 10 ml 04/28/22 16:00 Sodium Chloride 0.9% 10 Ml Flush Syringe IV PRN PRN LINE FLUSH Warfarin Sodium 7.5 mg 05/02/22 17:00 05/02/22 16:37 Warfarin 7.5 Mg Tab PO 05/03/22 16:59 7.5 mg ONCE@1700 BRINDA Administration Warfarin Sodium 7.5 mg 05/03/22 17:00 Warfarin 7.5 Mg Tab PO 05/04/22 16:59 DAILY@1700 NR Nutrition/Malnutrition Assess - Dietary Evaluation Nutrition/Malnutrition Findings: Nutrition Notes Start: 04/29/22 11:14 Freq: Status: Active Protocol: Document 04/29/22 11:14 STEFF (Rec: 04/29/22 11:53 STEFF [id number]) Nutrition Notes Initial or Follow up Assessment Current Diagnosis Hypertension,Stroke, Hyperlipidemia Other Pertinent Diagnosis Pneumonia, SIRS, Lactic Acidosis, Dehydration, OHS, HIV/AIDS, ... Current Diet Regular Diet (since D 04/28). Labs/Tests 04/29: Ca 7.9. Pertinent Medications 04/29: Coumadin 7.5 mg, others nutritionally unremarkable. 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 Weight Status Obese Subjective/Other Information RD consult for warfarine use assessment. No reports available on Pt's PO intake of meals at the time , will assess at F/U. Pt is on Room Air, O2 saturation @ 96%, according to Physical Assessment History notes. Pt presents an uspecified area of concern for skin risk at the time, according to Physical Assessment History notes. Pt still on critical condition , not a candidate for nutrition education at this time, will assess feasibility at F/U. Percent of energy/protein needs met: Prescribed Regular Diet provides for energy/protein needs (2,289 Kcal/89 g) during LOS. Burn Absent Trauma Absent GI Symptoms None Food Allergy No Skin Integrity/Comment Unspecified area of concern. 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 No Is Patient Ambulatory and/or Out of Bed Yes REE-([facility]-ambulatory/OOB) [ 5652.494 [id number]] Kcal/Kg value to use for calculation 19 Approximate Energy Requirements Using 2310 kcal/Kg Calculation Used for Recommendations Kcal/kg Additional Notes Protein: 0.8-1 g/Kg AdjBW; 83- 104 g/day. Fluids: 1 ml/Kcal, or as per MD. Nutrition Intervention Change Diet Order: Continue Regular Diet. Follow-Up By: 05/06/22 Additional Comments Nutrition education will be provided at F/U, if feasible. Continue monitoring food tolerance, %PO intake of meals , and BM.
[2022-05-03] MEDS ORDERED: WARFARIN 7.5 MG TAB PO NR (17:00)
--- NOTE | 2022-05-03 17:07 | Gastroenterology Progress Note ---
Assessment and Plan GI: noted increase lft's especially alk phos without obvious signs biliary obstruction - pt refusing MRCP due to closed space - awaiting labs, will try to fractionate Alk phos - follow labs - no changes at this time - will follow Subjective Date of service: 05/03/22 Principal diagnosis: Elevated LFT Interval history: - no specific GI complaints. Refusing any further imaging at this time Objective - Constitutional Vitals: Temp Pulse Resp BP Pulse Ox 98.4 F 100 H 16 153/101 93 05/03/22 04:09 05/03/22 10:19 05/03/22 10:00 05/03/22 10:19 05/03/22 10:00 General appearance: no acute distress - EENT Eyes: PERRL - Respiratory Respiratory: bilateral: CTA - Cardiovascular Rhythm: regular Heart Sounds: Present: S1 & S2 - Gastrointestinal General gastrointestinal: Present: soft, non-tender, non-distended - Labs CBC & Chem 7: 05/03/22 04:54 05/03/22 04:54 Labs: Laboratory Results - last 24 hr 05/03/22 05/03/22 05/03/22 04:54 04:54 04:54 WBC 10.9 RBC 4.70 Hgb 14.8 Hct 43.6 MCV 93 MCH 31 MCHC 34 RDW 14.1 Plt Count 204 Add Manual Diff Complete Total Counted 100 Seg Neuts % (Manual) 71.0 H Band Neutrophils % 0 Lymphocytes % (Manual) 19.0 Reactive Lymphs % (Man) 0 Monocytes % (Manual) 4.0 Eosinophils % (Manual) 3.0 Basophils % (Manual) 0 Metamyelocytes % 3.0 Myelocytes % 0 Promyelocytes % 0 Blast Cells % 0 Nucleated RBC % Not Reportable Seg Neutrophils # Man 7.7 Band Neutrophils # 0.0 Lymphocytes # (Manual) 2.1 Abs React Lymphs (Man) 0.0 Monocytes # (Manual) 0.4 Eosinophils # (Manual) 0.3 Basophils # (Manual) 0.0 Metamyelocytes # 0.3 Myelocytes # 0.0 Promyelocytes # 0.0 Blast Cells # 0.0 WBC Morphology Not Reportable Hypersegmented Neuts Not Reportable Hyposegmented Neuts Not Reportable Hypogranular Neuts Not Reportable Smudge Cells Not Reportable Toxic Granulation Not Reportable Toxic Vacuolation Not Reportable Dohle Bodies Not Reportable Pelger-Huet Anomaly Not Reportable Jigar Rods Not Reportable Platelet Estimate Consistent w auto Clumped Platelets Not Reportable Plt Clumps, EDTA Not Reportable Large Platelets Not Reportable Giant Platelets Not Reportable Platelet Satelliting Not Reportable Plt Morphology Comment Not Reportable RBC Morphology Not Reportable Dimorphic RBCs Not Reportable Polychromasia Not Reportable Hypochromasia Not Reportable Poikilocytosis Not Reportable Anisocytosis Not Reportable Microcytosis Not Reportable Macrocytosis Not Reportable Spherocytes Not Reportable Pappenheimer Bodies Not Reportable Sickle Cells Not Reportable Target Cells Not Reportable Tear Drop Cells Not Reportable Ovalocytes Not Reportable Helmet Cells Not Reportable [place] Bodies Not Reportable [place] Rings Not Reportable Nicolas Cells Not Reportable Bite Cells Not Reportable Crenated Cell Not Reportable Elliptocytes Not Reportable Acanthocytes (Spur) Not Reportable Rouleaux Not Reportable Hemoglobin C Crystals Not Reportable Schistocytes Not Reportable Malaria parasites Not Reportable Tony Bodies Not Reportable Hem Pathologist Commnt No PT 16.2 H INR 1.14 H Sodium 137 Potassium 3.3 L Chloride 101.9 Carbon Dioxide 26 Anion Gap 12 BUN 13 Creatinine 0.9 Estimated GFR > 60 BUN/Creatinine Ratio 14 Glucose 82 Calcium 8.3 L
[2022-05-03] MEDS: cefTRIAXone/NS 2 GM/100 ML 2 GM/100 ML BAG IV SCH (17:43)
[2022-05-04 06:16] LABS: INR 1.54 (0.87-1.13)
[2022-05-04 06:19] LABS: Alanine Aminotransferase 66 units/L (7-56); Albumin 2.7 g/dL (3.9-5)
[2022-05-04 06:24] LABS: Bilirubin,Direct < 0.2 mg/dL (0-0.2)
[2022-05-04] MEDS: SODIUM CHLORIDE 0.9% 1000 ML 1,000 ML IV SCH ×2 (08:01→15:45)
--- NOTE | 2022-05-04 08:32 | Progress Note ---
Assessment and Plan Assessment and plan: 51 YO Male with HIV on antiretroviral therapy, CVA with LHP, HTN, HLD presents to ED for evaluation of generalized weakness over the past 2 days with diminished oral intake. Patient stated that while attempting to get out of bed he experienced a sudden onset of weakness and fell from a standing position landing on the floor. Patient denied injury. EMS was notified and upon arrival the patient was found to be in distress and subsequent transported to [facility] for further care and evaluation of the aforementioned symptoms. The patient was seen and evaluated in the emergency department. All lab and imaging studies reviewed. Patient underwent chest x-ray and was found to have pneumonia, sepsis, and HIV infection. Sepsis. POA. Patient meets criteria given the fever, tachycardia and diagnosis of pneumonia. Suspected COVID-pneumonia Bilateral lower lobe pneumonia Acute hypoxic respiratory failure. HIV Obesity hypoventilation syndrome Elevated alkaline phosphatase. 04/29/2022. Await PCR for COVID-pneumonia. If PCR is positive and patient hypoxic, we will initiate IV dexamethasone/remdesivir. Patient with only 2 L of oxygen at present and does not appear to be severely hypoxic. Continue IV antibiotics until procalcitonin level resulted. ID is consulted for further evaluation. Follow-up blood cultures. 04/30/2022. COVID PCR was found to be negative. Continue anti-retrovirals per ID recommendations. Continue empiric antibiotics for pneumonia. We will change to Ceftin 500 mg p.o. twice daily plus azithromycin at discharge. Abdominal ultrasound revealed mild diffuse intrahepatic biliary prominence without obvious obstructing lesion. No evidence of cholelithiasis 05/01/2022. Patient for MRCP for elevated alkaline phosphatase. GI following. Continue IV antibiotics for pneumonia. Patient will receive Ceftin and azithromycin at discharge. Await placement 05/02/2022. Patient unable to do MRCP yesterday due to claustrophobia. We will give Ativan and attempt repeat MRCP today. Follow-up GGT levels to ensure hepatic source. Continue antibiotics and switch to Ceftin/azithromycin at discharge. 05/03/2022. Patient still unable to do MRCP due to claustrophobia. Alkaline phosphatase remains elevated. Follow-up GGT levels to ensure hepatic source. Continue antibiotics and switch to Ceftin/azithromycin at discharge. Await placement 05/04/2022. Patient still unable to do MRCP due to claustrophobia. Alkaline phosphatase remains elevated. Follow-up GGT levels to ensure hepatic source. Continue antibiotics and switch to Ceftin/azithromycin at discharge. Await placement History Interval history: No new issues overnight Hospitalist Physical - Constitutional Vitals: Temp Pulse Resp BP Pulse Ox 98.4 F 100 H 16 153/101 93 05/03/22 04:09 05/03/22 10:19 05/03/22 10:00 05/03/22 10:19 05/03/22 23:27 General appearance: Present: no acute distress, obese - EENT Eyes: Present: PERRL, EOM intact ENT: hearing intact, clear oral mucosa, dentition normal - Neck Neck: Present: supple, normal ROM - Respiratory Respiratory effort: normal Respiratory: bilateral: CTA - Cardiovascular Rhythm: regular Heart Sounds: Present: S1 & S2. Absent: gallop, rub - Extremities Extremities: no ischemia, No edema, Full ROM - Abdominal General gastrointestinal: soft, non-tender, non-distended, normal bowel sounds - Integumentary Integumentary: Present: clear, warm, dry - Neurologic Neurologic: CNII-XII intact, moves all extremities Results - Labs CBC & Chem 7: 05/03/22 04:54 05/03/22 04:54 Labs: Laboratory Last Values WBC 10.9 K/mm3 (4.5-11.0) 05/03/22 04:54 RBC 4.70 M/mm3 (3.65-5.03) 05/03/22 04:54 Hgb 14.8 gm/dl (11.8-15.2) 05/03/22 04:54 Hct 43.6 % (35.5-45.6) 05/03/22 04:54 MCV 93 fl (84-94) 05/03/22 04:54 MCH 31 pg (28-32) 05/03/22 04:54 MCHC 34 % (32-34) 05/03/22 04:54 RDW 14.1 % (13.2-15.2) 05/03/22 04:54 Plt Count 204 K/mm3 (140-440) 05/03/22 04:54 Lymph % (Auto) 14.1 % (13.4-35.0) 04/29/22 06:24 [place] % (Auto) 11.7 % (0.0-7.3) H 04/29/22 06:24 Eos % (Auto) 1.4 % (0.0-4.3) 04/29/22 06:24 Baso % (Auto) 0.2 % (0.0-1.8) 04/29/22 06:24 Lymph # (Auto) 1.5 K/mm3 (1.2-5.4) 04/29/22 06:24 [place] # (Auto) 1.2 K/mm3 (0.0-0.8) H 04/29/22 06:24 Eos # (Auto) 0.1 K/mm3 (0.0-0.4) 04/29/22 06:24 Baso # (Auto) 0.0 K/mm3 (0.0-0.1) 04/29/22 06:24 Add Manual Diff Complete 05/03/22 04:54 Total Counted 100 05/03/22 04:54 Seg Neutrophils % 72.6 % (40.0-70.0) H 04/29/22 06:24 Seg Neuts % (Manual) 71.0 % (40.0-70.0) H 05/03/22 04:54 Band Neutrophils % 0 % 05/03/22 04:54 Lymphocytes % (Manual) 19.0 % (13.4-35.0) 05/03/22 04:54 Reactive Lymphs % (Man) 0 % 05/03/22 04:54 Monocytes % (Manual) 4.0 % (0.0-7.3) 05/03/22 04:54 Eosinophils % (Manual) 3.0 % (0.0-4.3) 05/03/22 04:54 Basophils % (Manual) 0 % (0.0-1.8) 05/03/22 04:54 Metamyelocytes % 3.0 % 05/03/22 04:54 Myelocytes % 0 % 05/03/22 04:54 Promyelocytes % 0 % 05/03/22 04:54 Blast Cells % 0 % 05/03/22 04:54 Nucleated RBC % Not Reportable 05/03/22 04:54 Seg Neutrophils # 7.5 K/mm3 (1.8-7.7) 04/29/22 06:24 Seg Neutrophils # Man 7.7 K/mm3 (1.8-7.7) 05/03/22 04:54 Band Neutrophils # 0.0 K/mm3 05/03/22 04:54 Lymphocytes # (Manual) 2.1 K/mm3 (1.2-5.4) 05/03/22 04:54 Abs React Lymphs (Man) 0.0 K/mm3 05/03/22 04:54 Monocytes # (Manual) 0.4 K/mm3 (0.0-0.8) 05/03/22 04:54 Eosinophils # (Manual) 0.3 K/mm3 (0.0-0.4) 05/03/22 04:54 Basophils # (Manual) 0.0 K/mm3 (0.0-0.1) 05/03/22 04:54 Metamyelocytes # 0.3 K/mm3 05/03/22 04:54 Myelocytes # 0.0 K/mm3 05/03/22 04:54 Promyelocytes # 0.0 K/mm3 05/03/22 04:54 Blast Cells # 0.0 K/mm3 05/03/22 04:54 WBC Morphology Not Reportable 05/03/22 04:54 Hypersegmented Neuts Not Reportable 05/03/22 04:54 Hyposegmented Neuts Not Reportable 05/03/22 04:54 Hypogranular Neuts Not Reportable 05/03/22 04:54 Smudge Cells Not Reportable 05/03/22 04:54 Toxic Granulation Not Reportable 05/03/22 04:54 Toxic Vacuolation Not Reportable 05/03/22 04:54 Dohle Bodies Not Reportable 05/03/22 04:54 Pelger-Huet Anomaly Not Reportable 05/03/22 04:54 Jigar Rods Not Reportable 05/03/22 04:54 Platelet Estimate Consistent w auto 05/03/22 04:54 Clumped Platelets Not Reportable 05/03/22 04:54 Plt Clumps, EDTA Not Reportable 05/03/22 04:54 Large Platelets Not Reportable 05/03/22 04:54 Giant Platelets Not Reportable 05/03/22 04:54 Platelet Satelliting Not Reportable 05/03/22 04:54 Plt Morphology Comment Not Reportable 05/03/22 04:54 RBC Morphology Not Reportable 05/03/22 04:54 Dimorphic RBCs Not Reportable 05/03/22 04:54 Polychromasia Not Reportable 05/03/22 04:54 Hypochromasia Not Reportable 05/03/22 04:54 Poikilocytosis Not Reportable 05/03/22 04:54 Anisocytosis Not Reportable 05/03/22 04:54 Microcytosis Not Reportable 05/03/22 04:54 Macrocytosis Not Reportable 05/03/22 04:54 Spherocytes Not Reportable 05/03/22 04:54 Pappenheimer Bodies Not Reportable 05/03/22 04:54 Sickle Cells Not Reportable 05/03/22 04:54 Target Cells Not Reportable 05/03/22 04:54 Tear Drop Cells Not Reportable 05/03/22 04:54 Ovalocytes Not Reportable 05/03/22 04:54 Helmet Cells Not Reportable 05/03/22 04:54 Sheldon-Sarles Bodies Not Reportable 05/03/22 04:54 [place] Rings Not Reportable 05/03/22 04:54 [place] Cells Not Reportable 05/03/22 04:54 Bite Cells Not Reportable 05/03/22 04:54 Crenated Cell Not Reportable 05/03/22 04:54 Elliptocytes Not Reportable 05/03/22 04:54 Acanthocytes (Spur) Not Reportable 05/03/22 04:54 Rouleaux Not Reportable 05/03/22 04:54 Hemoglobin C Crystals Not Reportable 05/03/22 04:54 Schistocytes Not Reportable 05/03/22 04:54 Malaria parasites Not Reportable 05/03/22 04:54 Tony Bodies Not Reportable 05/03/22 04:54 Hem Pathologist Commnt No 05/03/22 04:54 PT 20.8 Sec. (12.2-14.9) H 05/04/22 04:00 INR 1.54 (0.87-1.13) H 05/04/22 04:00 Sodium 137 mmol/L (137-145) 05/03/22 04:54 Potassium 3.3 mmol/L (3.6-5.0) L 05/03/22 04:54 Chloride 101.9 mmol/L (98-107) 05/03/22 04:54 Carbon Dioxide 26 mmol/L (22-30) 05/03/22 04:54 Anion Gap 12 mmol/L 05/03/22 04:54 BUN 13 mg/dL (9-20) 05/03/22 04:54 Creatinine 0.9 mg/dL (0.8-1.3) 05/03/22 04:54 Estimated GFR > 60 ml/min 05/03/22 04:54 BUN/Creatinine Ratio 14 % 05/03/22 04:54 Glucose 82 mg/dL (75-100) 05/03/22 04:54 Lactic Acid 1.20 mmol/L (0.7-2.0) 04/28/22 13:30 Calcium 8.3 mg/dL (8.4-10.2) L 05/03/22 04:54 Iron 52 ug/dL (49-181) 05/02/22 09:55 TIBC 140 mcg/dL (250-450) L 05/02/22 09:55 Total Bilirubin 0.30 mg/dL (0.1-1.2) 05/04/22 06:00 Direct Bilirubin < 0.2 mg/dL (0-0.2) 05/04/22 06:00 Indirect Bilirubin 0.1 mg/dL 05/04/22 06:00 AST 78 units/L (5-40) H 05/04/22 06:00 ALT 66 units/L (7-56) H 05/04/22 06:00 Alkaline Phosphatase 1359 units/L (35-129) H 05/04/22 06:00 Total Protein 7.2 g/dL (6.3-8.2) 05/04/22 06:00 Albumin 2.7 g/dL (3.9-5) L 05/04/22 06:00 Albumin/Globulin Ratio 0.6 % 05/04/22 06:00 Procalcitonin 0.80 ng/mL (<0.15) 04/29/22 19:31 Urine Color Dark yellow (Yellow) 04/28/22 10:29 Urine Turbidity Cloudy (Clear) 04/28/22 10:29 Urine pH 6.0 (5.0-7.0) 04/28/22 10:29 Ur Specific [place] 1.025 (1.003-1.030) 04/28/22 10:29 Urine Protein 30 mg/dl mg/dL (Negative) 04/28/22 10:29 Urine Glucose (UA) Negative mg/dL (Negative) 04/28/22 10:29 Urine Ketones Negative mg/dL (Negative) 04/28/22 10:29 Urine Blood Trace (Negative) 04/28/22 10:29 Urine Nitrite Negative (Negative) 04/28/22 10:29 Ur Reducing Substances Not Reportable 04/28/22 10:29 Urine Bilirubin Small (Negative) 04/28/22 10:29 Urine Ictotest Negative (Negative) 04/28/22 10:29 Urine Urobilinogen 1.0 mg/dL (<2.0) 04/28/22 10:29 Ur Leukocyte Esterase Negative (Negative) 04/28/22 10:29 Urine WBC (Auto) 4.0 /HPF (0.0-6.0) 04/28/22 10:29 Urine RBC (Auto) 1.0 /HPF (0.0-6.0) 04/28/22 10:29 Urine Bacteria (Auto) 1+ /HPF (Negative) 04/28/22 10:29 Urine Mucus 2+ /HPF 04/28/22 10:29 Urine Opiates Screen Negative 04/29/22 Unknown Urine Methadone Screen Negative 04/29/22 Unknown Ur Barbiturates Screen Negative 04/29/22 Unknown Ur Phencyclidine Scrn Negative 04/29/22 Unknown Ur Amphetamines Screen Negative 04/29/22 Unknown U Benzodiazepines Scrn Negative 04/29/22 Unknown Urine Cocaine Screen Negative 04/29/22 Unknown U Marijuana (THC) Screen Negative 04/29/22 Unknown Drugs of Abuse Note Disclamer 04/29/22 Unknown SARS-CoV-2 (PCR) Negative (Negative) 04/29/22 12:10 Hepatitis A IgM Ab Non-reactive (NonReactive) 05/02/22 09:55 Hepatitis C Antibody Non-reactive (NonReactive) 05/02/22 09:55 Microbiology: Microbiology 04/28/22 09:39 Peripheral/Venous Blood Culture - Final NO GROWTH AFTER 5 DAYS 04/28/22 09:39 Peripheral/Venous Blood Culture - Final NO GROWTH AFTER 5 DAYS Tao/IV: Voiding Method Condom Catheter Active Medications - Current Medications Current Medications: Generic Name Dose Route Start Last Admin Trade Name Freq PRN Reason Stop Dose Admin Abacavir Sulfate 600 mg 04/29/22 10:00 05/03/22 10:20 Abacavir 300 Mg Tab PO 600 mg QDAY BRINDA Administration Acetaminophen 650 mg 04/28/22 16:00 Acetaminophen 325 Mg Tab PO Q4H PRN Pain MILD(1-3)/Fever >100.5/FLORES Albuterol 2.5 mg 04/28/22 16:00 Albuterol 2.5 Mg/3 Ml Nebu IH Q4HRT PRN Shortness Of Breath Atorvastatin Calcium 40 mg 04/28/22 22:00 05/03/22 21:26 Atorvastatin 40 Mg Tab PO 40 mg QHS BRINDA Administration Dolutegravir Sodium 50 mg 04/29/22 10:00 05/03/22 10:18 Dolutegravir 50 Mg Tab PO 50 mg QDAY BRINDA Administration Escitalopram Oxalate 10 mg 04/28/22 17:00 05/03/22 10:20 Escitalopram 10 Mg Tab PO 10 mg DAILY BRINDA Administration Famotidine 20 mg 04/28/22 17:00 05/03/22 10:18 Famotidine 20 Mg Tab PO 20 mg DAILY BRINDA Administration Furosemide 40 mg 04/28/22 17:00 05/03/22 10:18 Furosemide 40 Mg Tab PO 40 mg DAILY BRINDA Administration Hydromorphone HCl 0.5 mg 04/28/22 16:00 Hydromorphone 0.5 Mg/0.5 Ml Inj IV Q23H PRN Pain , Severe (7-10) Sodium Chloride 1,000 mls @ 125 mls/hr 04/28/22 16:00 05/04/22 08:01 Nacl 0.9% 1000 Ml IV 125 mls/hr DIRECT BRINDA Administration Lamivudine 300 mg 04/29/22 10:00 05/03/22 12:00 Lamivudine 150 Mg Tab PO 300 mg QDAY BRINDA Administration Lisinopril 40 mg 04/29/22 10:00 05/03/22 10:19 Lisinopril 40 Mg Tab PO 40 mg QDAY BRINDA Administration Nifedipine 30 mg 04/29/22 10:00 05/03/22 10:18 Nifedipine Xl 30 Mg Tab PO 30 mg DAILY BRINDA Administration Ondansetron HCl 4 mg 04/28/22 16:00 05/01/22 12:09 Ondansetron 4 Mg/2 Ml Inj IV 4 mg Q8H PRN Administration Nausea And Vomiting Oxycodone/Acetaminophen 1 tab 04/28/22 16:00 04/28/22 22:20 Oxycodone /Acetaminophen 5-325mg Tab PO 1 tab Q16H PRN Administration Pain, Moderate (4-6) Sodium Chloride 10 ml 04/28/22 16:00 05/03/22 21:26 Sodium Chloride 0.9% 10 Ml Flush Syringe IV 10 ml BID BRINDA Administration Sodium Chloride 10 ml 04/28/22 16:00 Sodium Chloride 0.9% 10 Ml Flush Syringe IV PRN PRN LINE FLUSH Warfarin Sodium 7.5 mg 05/03/22 17:00 05/03/22 17:44 Warfarin 7.5 Mg Tab PO 05/04/22 16:59 7.5 mg DAILY@1700 NR Administration Nutrition/Malnutrition Assess - Dietary Evaluation Nutrition/Malnutrition Findings: Nutrition Notes Start: 04/29/22 11:14 Freq: Status: Active Protocol: Document 04/29/22 11:14 STEFF (Rec: 04/29/22 11:53 STEFF [id number]) Nutrition Notes Initial or Follow up Assessment Current Diagnosis Hypertension,Stroke, Hyperlipidemia Other Pertinent Diagnosis Pneumonia, SIRS, Lactic Acidosis, Dehydration, OHS, HIV/AIDS, ... Current Diet Regular Diet (since D 04/28). Labs/Tests 04/29: Ca 7.9. Pertinent Medications 04/29: Coumadin 7.5 mg, others nutritionally unremarkable. 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 Weight Status Obese Subjective/Other Information RD consult for warfarine use assessment. No reports available on Pt's PO intake of meals at the time , will assess at F/U. Pt is on Room Air, O2 saturation @ 96%, according to Physical Assessment History notes. Pt presents an uspecified area of concern for skin risk at the time, according to Physical Assessment History notes. Pt still on critical condition , not a candidate for nutrition education at this time, will assess feasibility at F/U. Percent of energy/protein needs met: Prescribed Regular Diet provides for energy/protein needs (2,289 Kcal/89 g) during LOS. Burn Absent Trauma Absent GI Symptoms None Food Allergy No Skin Integrity/Comment Unspecified area of concern. Minimum of two criteria No Fluid Accumulation N/A Reduced Skin Piler Strength N/A (non-severe) Protein-Calorie Malnutrition N\A #1 Nutrition Diagnosis No nutrition diagnosis at this time Is patient on ventilator? No Is Patient Ambulatory and/or Out of Bed Yes REE-([place]-ambulatory/OOB) [ 2782.494 [id number]] Kcal/Kg value to use for calculation 19 Approximate Energy Requirements Using 2310 kcal/Kg Calculation Used for Recommendations Kcal/kg Additional Notes Protein: 0.8-1 g/Kg AdjBW; 83- 104 g/day. Fluids: 1 ml/Kcal, or as per MD. Nutrition Intervention Change Diet Order: Continue Regular Diet. Follow-Up By: 05/06/22 Additional Comments Nutrition education will be provided at F/U, if feasible. Continue monitoring food tolerance, %PO intake of meals , and BM.
[2022-05-04] MEDS: DOLUTEGRAVIR 50 MG TAB PO SCH (11:11)
[2022-05-04] MEDS: FUROSEMIDE 40 MG TAB PO SCH (11:11)
[2022-05-04] MEDS: NIFEdipine XL 30 MG TAB PO SCH (11:12)
[2022-05-04] MEDS: ESCITALOPRAM 10 MG TAB PO SCH (11:12)
[2022-05-04] MEDS: LISINOPRIL 40 MG TAB PO SCH (11:12)
[2022-05-04] MEDS: ABACAVIR 300 MG TAB PO SCH (11:13)
[2022-05-04] MEDS: FAMOTIDINE 20 MG TAB PO SCH (11:13)
[2022-05-04] MEDS ORDERED: WARFARIN 7.5 MG TAB PO NR (17:00)
--- NOTE | 2022-05-04 17:07 | Gastroenterology Progress Note ---
Assessment and Plan GI: noted increase lft's especially alk phos without obvious signs biliary obstruction - pt refusing MRCP due to closed space - awaiting labs, will try to fractionate Alk phos - follow labs - no changes at this time - will follow Subjective Date of service: 05/04/22 Principal diagnosis: Elevated LFT Interval history: - no specific GI complaints overnight Objective - Constitutional Vitals: Temp Pulse Resp BP Pulse Ox 97.7 F 89 16 166/107 93 05/04/22 11:16 05/04/22 11:16 05/04/22 11:16 05/04/22 11:16 05/04/22 11:16 General appearance: no acute distress - EENT Eyes: PERRL - Respiratory Respiratory: bilateral: CTA - Cardiovascular Rhythm: regular Heart Sounds: Present: S1 & S2 - Gastrointestinal General gastrointestinal: Present: soft, non-tender, non-distended - Labs CBC & Chem 7: 05/03/22 04:54 05/03/22 04:54 Labs: Laboratory Results - last 24 hr 05/04/22 05/04/22 04:00 06:00 PT 20.8 H INR 1.54 H Total Bilirubin 0.30 Direct Bilirubin < 0.2 Indirect Bilirubin 0.1 AST 78 H ALT 66 H Alkaline Phosphatase 1359 H Total Protein 7.2 Albumin 2.7 L Albumin/Globulin Ratio 0.6
[2022-05-05 05:27] LABS: Alanine Aminotransferase 69 units/L (7-56); Albumin 2.9 g/dL (3.9-5)
[2022-05-05 05:29] LABS: INR 2.03 (0.87-1.13)
[2022-05-05 05:51] LABS: Bilirubin,Direct < 0.2 mg/dL (0-0.2)
--- NOTE | 2022-05-05 08:40 | Progress Note ---
Assessment and Plan Assessment and plan: 51 YO Male with HIV on antiretroviral therapy, CVA with LHP, HTN, HLD presents to ED for evaluation of generalized weakness over the past 2 days with diminished oral intake. Patient stated that while attempting to get out of bed he experienced a sudden onset of weakness and fell from a standing position landing on the floor. Patient denied injury. EMS was notified and upon arrival the patient was found to be in distress and subsequent transported to [facility] for further care and evaluation of the aforementioned symptoms. The patient was seen and evaluated in the emergency department. All lab and imaging studies reviewed. Patient underwent chest x-ray and was found to have pneumonia, sepsis, and HIV infection. Sepsis. POA. Patient meets criteria given the fever, tachycardia and diagnosis of pneumonia. Suspected COVID-pneumonia Bilateral lower lobe pneumonia Acute hypoxic respiratory failure. HIV Obesity hypoventilation syndrome Elevated alkaline phosphatase. 04/29/2022. Await PCR for COVID-pneumonia. If PCR is positive and patient hypoxic, we will initiate IV dexamethasone/remdesivir. Patient with only 2 L of oxygen at present and does not appear to be severely hypoxic. Continue IV antibiotics until procalcitonin level resulted. ID is consulted for further evaluation. Follow-up blood cultures. 04/30/2022. COVID PCR was found to be negative. Continue anti-retrovirals per ID recommendations. Continue empiric antibiotics for pneumonia. We will change to Ceftin 500 mg p.o. twice daily plus azithromycin at discharge. Abdominal ultrasound revealed mild diffuse intrahepatic biliary prominence without obvious obstructing lesion. No evidence of cholelithiasis 05/01/2022. Patient for MRCP for elevated alkaline phosphatase. GI following. Continue IV antibiotics for pneumonia. Patient will receive Ceftin and azithromycin at discharge. Await placement 05/02/2022. Patient unable to do MRCP yesterday due to claustrophobia. We will give Ativan and attempt repeat MRCP today. Follow-up GGT levels to ensure hepatic source. Continue antibiotics and switch to Ceftin/azithromycin at discharge. 05/03/2022. Patient still unable to do MRCP due to claustrophobia. Alkaline phosphatase remains elevated. Follow-up GGT levels to ensure hepatic source. Continue antibiotics and switch to Ceftin/azithromycin at discharge. Await placement 05/04/2022. Patient still unable to do MRCP due to claustrophobia. Alkaline phosphatase remains elevated. Follow-up GGT levels to ensure hepatic source. Continue antibiotics and switch to Ceftin/azithromycin at discharge. Await placement 05/05/2022. Patient still with elevated alkaline phosphatase without obvious sign s of biliary obstruction. Patient still unable to do MRCP due to claustrophobia. Follow-up GGT levels to ensure hepatic source. Continue antibiotics and switch to Ceftin/azithromycin at discharge. Await placement. Physical therapy recommending subacute rehab History Interval history: No new issues overnight Hospitalist Physical - Constitutional Vitals: Temp Pulse Resp BP Pulse Ox 98.3 F 78 16 159/96 94 05/04/22 20:40 05/04/22 20:40 05/04/22 20:40 05/04/22 20:40 05/04/22 20:40 General appearance: Present: no acute distress, obese - EENT Eyes: Present: PERRL, EOM intact ENT: hearing intact, clear oral mucosa, dentition normal - Neck Neck: Present: supple, normal ROM - Respiratory Respiratory effort: normal Respiratory: bilateral: CTA - Cardiovascular Rhythm: regular Heart Sounds: Present: S1 & S2. Absent: gallop, rub - Extremities Extremities: no ischemia, No edema, Full ROM - Abdominal General gastrointestinal: soft, non-tender, non-distended, normal bowel sounds - Integumentary Integumentary: Present: clear, warm, dry - Neurologic Neurologic: CNII-XII intact, moves all extremities Results - Labs CBC & Chem 7: 05/03/22 04:54 05/03/22 04:54 Labs: Laboratory Last Values WBC 10.9 K/mm3 (4.5-11.0) 05/03/22 04:54 RBC 4.70 M/mm3 (3.65-5.03) 05/03/22 04:54 Hgb 14.8 gm/dl (11.8-15.2) 05/03/22 04:54 Hct 43.6 % (35.5-45.6) 05/03/22 04:54 MCV 93 fl (84-94) 05/03/22 04:54 MCH 31 pg (28-32) 05/03/22 04:54 MCHC 34 % (32-34) 05/03/22 04:54 RDW 14.1 % (13.2-15.2) 05/03/22 04:54 Plt Count 204 K/mm3 (140-440) 05/03/22 04:54 Lymph % (Auto) 14.1 % (13.4-35.0) 04/29/22 06:24 [place] % (Auto) 11.7 % (0.0-7.3) H 04/29/22 06:24 Eos % (Auto) 1.4 % (0.0-4.3) 04/29/22 06:24 Baso % (Auto) 0.2 % (0.0-1.8) 04/29/22 06:24 Lymph # (Auto) 1.5 K/mm3 (1.2-5.4) 04/29/22 06:24 [place] # (Auto) 1.2 K/mm3 (0.0-0.8) H 04/29/22 06:24 Eos # (Auto) 0.1 K/mm3 (0.0-0.4) 04/29/22 06:24 Baso # (Auto) 0.0 K/mm3 (0.0-0.1) 04/29/22 06:24 Add Manual Diff Complete 05/03/22 04:54 Total Counted 100 05/03/22 04:54 Seg Neutrophils % 72.6 % (40.0-70.0) H 04/29/22 06:24 Seg Neuts % (Manual) 71.0 % (40.0-70.0) H 05/03/22 04:54 Band Neutrophils % 0 % 05/03/22 04:54 Lymphocytes % (Manual) 19.0 % (13.4-35.0) 05/03/22 04:54 Reactive Lymphs % (Man) 0 % 05/03/22 04:54 Monocytes % (Manual) 4.0 % (0.0-7.3) 05/03/22 04:54 Eosinophils % (Manual) 3.0 % (0.0-4.3) 05/03/22 04:54 Basophils % (Manual) 0 % (0.0-1.8) 05/03/22 04:54 Metamyelocytes % 3.0 % 05/03/22 04:54 Myelocytes % 0 % 05/03/22 04:54 Promyelocytes % 0 % 05/03/22 04:54 Blast Cells % 0 % 05/03/22 04:54 Nucleated RBC % Not Reportable 05/03/22 04:54 Seg Neutrophils # 7.5 K/mm3 (1.8-7.7) 04/29/22 06:24 Seg Neutrophils # Man 7.7 K/mm3 (1.8-7.7) 05/03/22 04:54 Band Neutrophils # 0.0 K/mm3 05/03/22 04:54 Lymphocytes # (Manual) 2.1 K/mm3 (1.2-5.4) 05/03/22 04:54 Abs React Lymphs (Man) 0.0 K/mm3 05/03/22 04:54 Monocytes # (Manual) 0.4 K/mm3 (0.0-0.8) 05/03/22 04:54 Eosinophils # (Manual) 0.3 K/mm3 (0.0-0.4) 05/03/22 04:54 Basophils # (Manual) 0.0 K/mm3 (0.0-0.1) 05/03/22 04:54 Metamyelocytes # 0.3 K/mm3 05/03/22 04:54 Myelocytes # 0.0 K/mm3 05/03/22 04:54 Promyelocytes # 0.0 K/mm3 05/03/22 04:54 Blast Cells # 0.0 K/mm3 05/03/22 04:54 WBC Morphology Not Reportable 05/03/22 04:54 Hypersegmented Neuts Not Reportable 05/03/22 04:54 Hyposegmented Neuts Not Reportable 05/03/22 04:54 Hypogranular Neuts Not Reportable 05/03/22 04:54 Smudge Cells Not Reportable 05/03/22 04:54 Toxic Granulation Not Reportable 05/03/22 04:54 Toxic Vacuolation Not Reportable 05/03/22 04:54 Dohle Bodies Not Reportable 05/03/22 04:54 Pelger-Huet Anomaly Not Reportable 05/03/22 04:54 Jigar Rods Not Reportable 05/03/22 04:54 Platelet Estimate Consistent w auto 05/03/22 04:54 Clumped Platelets Not Reportable 05/03/22 04:54 Plt Clumps, EDTA Not Reportable 05/03/22 04:54 Large Platelets Not Reportable 05/03/22 04:54 Giant Platelets Not Reportable 05/03/22 04:54 Platelet Satelliting Not Reportable 05/03/22 04:54 Plt Morphology Comment Not Reportable 05/03/22 04:54 RBC Morphology Not Reportable 05/03/22 04:54 Dimorphic RBCs Not Reportable 05/03/22 04:54 Polychromasia Not Reportable 05/03/22 04:54 Hypochromasia Not Reportable 05/03/22 04:54 Poikilocytosis Not Reportable 05/03/22 04:54 Anisocytosis Not Reportable 05/03/22 04:54 Microcytosis Not Reportable 05/03/22 04:54 Macrocytosis Not Reportable 05/03/22 04:54 Spherocytes Not Reportable 05/03/22 04:54 Pappenheimer Bodies Not Reportable 05/03/22 04:54 Sickle Cells Not Reportable 05/03/22 04:54 Target Cells Not Reportable 05/03/22 04:54 Tear Drop Cells Not Reportable 05/03/22 04:54 Ovalocytes Not Reportable 05/03/22 04:54 Helmet Cells Not Reportable 05/03/22 04:54 [place] Bodies Not Reportable 05/03/22 04:54 [place] Rings Not Reportable 05/03/22 04:54 Nicolas Cells Not Reportable 05/03/22 04:54 Bite Cells Not Reportable 05/03/22 04:54 Crenated Cell Not Reportable 05/03/22 04:54 Elliptocytes Not Reportable 05/03/22 04:54 Acanthocytes (Spur) Not Reportable 05/03/22 04:54 Rouleaux Not Reportable 05/03/22 04:54 Hemoglobin C Crystals Not Reportable 05/03/22 04:54 Schistocytes Not Reportable 05/03/22 04:54 Malaria parasites Not Reportable 05/03/22 04:54 Tony Bodies Not Reportable 05/03/22 04:54 Hem Pathologist Commnt No 05/03/22 04:54 PT 26.1 Sec. (12.2-14.9) H 05/05/22 04:44 INR 2.03 (0.87-1.13) H 05/05/22 04:44 Sodium 137 mmol/L (137-145) 05/03/22 04:54 Potassium 3.3 mmol/L (3.6-5.0) L 05/03/22 04:54 Chloride 101.9 mmol/L (98-107) 05/03/22 04:54 Carbon Dioxide 26 mmol/L (22-30) 05/03/22 04:54 Anion Gap 12 mmol/L 05/03/22 04:54 BUN 13 mg/dL (9-20) 05/03/22 04:54 Creatinine 0.9 mg/dL (0.8-1.3) 05/03/22 04:54 Estimated GFR > 60 ml/min 05/03/22 04:54 BUN/Creatinine Ratio 14 % 05/03/22 04:54 Glucose 82 mg/dL (75-100) 05/03/22 04:54 Lactic Acid 1.20 mmol/L (0.7-2.0) 04/28/22 13:30 Calcium 8.3 mg/dL (8.4-10.2) L 05/03/22 04:54 Iron 52 ug/dL (49-181) 05/02/22 09:55 TIBC 140 mcg/dL (250-450) L 05/02/22 09:55 Total Bilirubin 0.40 mg/dL (0.1-1.2) 05/05/22 04:44 Direct Bilirubin < 0.2 mg/dL (0-0.2) 05/05/22 04:44 Indirect Bilirubin 0.2 mg/dL 05/05/22 04:44 AST 82 units/L (5-40) H 05/05/22 04:44 ALT 69 units/L (7-56) H 05/05/22 04:44 Alkaline Phosphatase 1484 units/L (35-129) H 05/05/22 04:44 Total Protein 7.5 g/dL (6.3-8.2) 05/05/22 04:44 Albumin 2.9 g/dL (3.9-5) L 05/05/22 04:44 Albumin/Globulin Ratio 0.6 % 05/05/22 04:44 Procalcitonin 0.80 ng/mL (<0.15) 04/29/22 19:31 Urine Color Dark yellow (Yellow) 04/28/22 10:29 Urine Turbidity Cloudy (Clear) 04/28/22 10:29 Urine pH 6.0 (5.0-7.0) 04/28/22 10:29 Ur Specific [place] 1.025 (1.003-1.030) 04/28/22 10:29 Urine Protein 30 mg/dl mg/dL (Negative) 04/28/22 10:29 Urine Glucose (UA) Negative mg/dL (Negative) 04/28/22 10:29 Urine Ketones Negative mg/dL (Negative) 04/28/22 10:29 Urine Blood Trace (Negative) 04/28/22 10:29 Urine Nitrite Negative (Negative) 04/28/22 10:29 Ur Reducing Substances Not Reportable 04/28/22 10:29 Urine Bilirubin Small (Negative) 04/28/22 10:29 Urine Ictotest Negative (Negative) 04/28/22 10:29 Urine Urobilinogen 1.0 mg/dL (<2.0) 04/28/22 10:29 Ur Leukocyte Esterase Negative (Negative) 04/28/22 10:29 Urine WBC (Auto) 4.0 /HPF (0.0-6.0) 04/28/22 10:29 Urine RBC (Auto) 1.0 /HPF (0.0-6.0) 04/28/22 10:29 Urine Bacteria (Auto) 1+ /HPF (Negative) 04/28/22 10:29 Urine Mucus 2+ /HPF 04/28/22 10:29 Urine Opiates Screen Negative 04/29/22 Unknown Urine Methadone Screen Negative 04/29/22 Unknown Ur Barbiturates Screen Negative 04/29/22 Unknown Ur Phencyclidine Scrn Negative 04/29/22 Unknown Ur Amphetamines Screen Negative 04/29/22 Unknown U Benzodiazepines Scrn Negative 04/29/22 Unknown Urine Cocaine Screen Negative 04/29/22 Unknown U Marijuana (THC) Screen Negative 04/29/22 Unknown Drugs of Abuse Note Disclamer 04/29/22 Unknown SARS-CoV-2 (PCR) Negative (Negative) 04/29/22 12:10 Hepatitis A IgM Ab Non-reactive (NonReactive) 05/02/22 09:55 Hepatitis C Antibody Non-reactive (NonReactive) 05/02/22 09:55 Tao/IV: Voiding Method Urinal Active Medications - Current Medications Current Medications: Generic Name Dose Route Start Last Admin Trade Name Freq PRN Reason Stop Dose Admin Abacavir Sulfate 600 mg 04/29/22 10:00 05/04/22 11:13 Abacavir 300 Mg Tab PO 600 mg QDAY BRINDA Administration Acetaminophen 650 mg 04/28/22 16:00 Acetaminophen 325 Mg Tab PO Q4H PRN Pain MILD(1-3)/Fever >100.5/FLORES Albuterol 2.5 mg 04/28/22 16:00 Albuterol 2.5 Mg/3 Ml Nebu IH Q4HRT PRN Shortness Of Breath Atorvastatin Calcium 40 mg 04/28/22 22:00 05/04/22 21:35 Atorvastatin 40 Mg Tab PO 40 mg QHS BRINDA Administration Dolutegravir Sodium 50 mg 04/29/22 10:00 05/04/22 11:11 Dolutegravir 50 Mg Tab PO 50 mg QDAY BRINDA Administration Escitalopram Oxalate 10 mg 04/28/22 17:00 05/04/22 11:12 Escitalopram 10 Mg Tab PO 10 mg DAILY BRINDA Administration Famotidine 20 mg 04/28/22 17:00 05/04/22 11:13 Famotidine 20 Mg Tab PO 20 mg DAILY BRINDA Administration Furosemide 40 mg 04/28/22 17:00 05/04/22 11:11 Furosemide 40 Mg Tab PO 40 mg DAILY BRINDA Administration Hydromorphone HCl 0.5 mg 04/28/22 16:00 Hydromorphone 0.5 Mg/0.5 Ml Inj IV Q23H PRN Pain , Severe (7-10) Sodium Chloride 1,000 mls @ 125 mls/hr 04/28/22 16:00 05/04/22 15:45 Nacl 0.9% 1000 Ml IV 125 mls/hr DIRECT BRINDA Administration Lamivudine 300 mg 04/29/22 10:00 05/04/22 11:14 Lamivudine 150 Mg Tab PO 300 mg QDAY BRINDA Administration Lisinopril 40 mg 04/29/22 10:00 05/04/22 11:12 Lisinopril 40 Mg Tab PO 40 mg QDAY BRINDA Administration Nifedipine 30 mg 04/29/22 10:00 05/04/22 11:12 Nifedipine Xl 30 Mg Tab PO 30 mg DAILY BRINDA Administration Ondansetron HCl 4 mg 04/28/22 16:00 05/01/22 12:09 Ondansetron 4 Mg/2 Ml Inj IV 4 mg Q8H PRN Administration Nausea And Vomiting Oxycodone/Acetaminophen 1 tab 04/28/22 16:00 04/28/22 22:20 Oxycodone /Acetaminophen 5-325mg Tab PO 1 tab Q16H PRN Administration Pain, Moderate (4-6) Sodium Chloride 10 ml 04/28/22 16:00 05/04/22 21:35 Sodium Chloride 0.9% 10 Ml Flush Syringe IV 10 ml BID BRINDA Administration Sodium Chloride 10 ml 04/28/22 16:00 Sodium Chloride 0.9% 10 Ml Flush Syringe IV PRN PRN LINE FLUSH Nutrition/Malnutrition Assess - Dietary Evaluation Nutrition/Malnutrition Findings: Nutrition Notes Start: 04/29/22 11:14 Freq: Status: Active Protocol: Document 04/29/22 11:14 STEFF (Rec: 04/29/22 11:53 STEFF [id number]) Nutrition Notes Initial or Follow up Assessment Current Diagnosis Hypertension,Stroke, Hyperlipidemia Other Pertinent Diagnosis Pneumonia, SIRS, Lactic Acidosis, Dehydration, OHS, HIV/AIDS, ... Current Diet Regular Diet (since D 04/28). Labs/Tests 04/29: Ca 7.9. Pertinent Medications 04/29: Coumadin 7.5 mg, others nutritionally unremarkable. 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 Weight Status Obese Subjective/Other Information RD consult for warfarine use assessment. No reports available on Pt's PO intake of meals at the time , will assess at F/U. Pt is on Room Air, O2 saturation @ 96%, according to Physical Assessment History notes. Pt presents an uspecified area of concern for skin risk at the time, according to Physical Assessment History notes. Pt still on critical condition , not a candidate for nutrition education at this time, will assess feasibility at F/U. Percent of energy/protein needs met: Prescribed Regular Diet provides for energy/protein needs (2,289 Kcal/89 g) during LOS. Burn Absent Trauma Absent GI Symptoms None Food Allergy No Skin Integrity/Comment Unspecified area of concern. Minimum of two criteria No Fluid Accumulation N/A Reduced Oncology Rep Strength N/A (non-severe) Protein-Calorie Malnutrition N\A #1 Nutrition Diagnosis No nutrition diagnosis at this time Is patient on ventilator? No Is Patient Ambulatory and/or Out of Bed Yes REE-(Crisp-St. Jeor-ambulatory/OOB) [ 2782.494 NUTR.[id number]] Kcal/Kg value to use for calculation 19 Approximate Energy Requirements Using 2310 kcal/Kg Calculation Used for Recommendations Kcal/kg Additional Notes Protein: 0.8-1 g/Kg AdjBW; 83- 104 g/day. Fluids: 1 ml/Kcal, or as per MD. Nutrition Intervention Change Diet Order: Continue Regular Diet. Follow-Up By: 05/06/22 Additional Comments Nutrition education will be provided at F/U, if feasible. Continue monitoring food tolerance, %PO intake of meals , and BM.
--- NOTE | 2022-05-05 09:55 | Progress Note ---
Assessment and Plan Cultures: COVID-19 PCR: Negative 04/28/2022 blood culture: No growth A/P: 51-year-old male with HIV on Triumeq, prior CVA, hypertension, hyperlipidemia was admitted to the hospital with weakness and not feeling well: #Atypical pneumonia: completed abx. #HIV disease: positive for about 20 years, has been undetectable on Triumeq, used to follow-up at [facility], recently moved to [place], his heart doctor has referred him to a local provider. #Sepsis: resolved #Elevated alkaline phosphatase: GI following, unable to complete MRCP. #Mild thrombocytopenia: resolved. Recs: -Continue Triumeq, split into abacavir, lamivudine, dolutegravir based on hospital formulary -completed abx for pneumonia -Follow-up GI recs due to elevated LFTs especially alkaline phosphatase -will follow up with HIV provider upon discharge. He does not think he can come to our ID clinic at [place] because he doesn't drive and it might be too far for him. Lokesh Garcia MD, FACP, [facility] O: [phone] F: [phone] C: [phone] Subjective Date of service: 05/05/22 Principal diagnosis: Elevated LFT Interval history: Sleepy and tired this morning. Hasn't been able to complete MRI. Completed abx, no fever, no cough. Remains on room air. Objective - Exam Narrative Exam: Physical Exam: Constitutional: Alert, cooperative. No acute distress Head, Ears, Nose: Normocephalic, atraumatic. External ears, nose normal Eyes: Conjunctivae/corneas clear. No icterus. No ptosis. Neck: Supple, no meningeal signs Oral: no thrush Cardiovascular: S1, S2 + Respiratory: Good air entry, clear to auscultation bilaterally GI: Soft, non-tender; bowel sounds normal. No peritoneal signs Musculoskeletal: No pedal edema, no cyanosis. Skin: No rash or abscess Hem/Lymphatic: No palpable cervical or supraclavicular nodes. No lymphangitis Psych: Mood ok. Affect normal Neurological: Awake, alert, oriented - Constitutional Vitals: Vital Signs Temp Pulse Resp BP Pulse Ox 98.3 F 78 16 159/96 94 05/04/22 20:40 08/07/22 20:40 05/04/22 20:40 05/04/22 20:40 05/04/22 20:40 Temperature -Last 24 Hours Temperature 98.3 F Temperature 98.9 F Temperature 97.7 F - Labs CBC & Chem 7: 05/03/22 04:54 05/03/22 04:54 Labs: Abnormal lab results 05/05/22 05/05/22 Range/Units 04:44 04:44 PT 26.1 H (12.2-14.9) Sec. INR 2.03 H (0.87-1.13) AST 82 H (5-40) units/L ALT 69 H (7-56) units/L Alkaline Phosphatase 1484 H (35-129) units/L Albumin 2.9 L (3.9-5) g/dL
[2022-05-05] MEDS: DOLUTEGRAVIR 50 MG TAB PO SCH (10:18)
[2022-05-05] MEDS: ABACAVIR 300 MG TAB PO SCH (10:18)
[2022-05-05] MEDS: NIFEdipine XL 30 MG TAB PO SCH (10:19)
[2022-05-05] MEDS: ESCITALOPRAM 10 MG TAB PO SCH (10:19)
[2022-05-05] MEDS: FUROSEMIDE 40 MG TAB PO SCH (10:19)
[2022-05-05] MEDS: FAMOTIDINE 20 MG TAB PO SCH (10:19)
[2022-05-05] MEDS: LISINOPRIL 40 MG TAB PO SCH (10:20)
[2022-05-05 10:24] LABS: BUN/Creatinine Ratio 14; Blood Urea Nitrogen 11 mg/dL (9-20); Calcium 8.2 mg/dL (8.4-10.2); Hemolysis Index 10
[2022-05-05] MEDS: SODIUM CHLORIDE 0.9% 1000 ML 1,000 ML IV SCH ×2 (16:04→22:51)
[2022-05-05] MEDS ORDERED: WARFARIN 5 MG TAB PO NR (17:00)
--- NOTE | 2022-05-05 20:57 | Gastroenterology Progress Note ---
Assessment and Plan GI: noted increase lft's especially alk phos without obvious signs biliary obstruction - pt refusing MRCP due to closed space - noted increasing alk phos but with nl t. bili and stable transaminases suspect no significant liver disease and nosignificant biliary obstruction - still attempting to get alk phos isoenzymes - follow labs - no changes at this time - otherwise can be dc from GI standpoint when cleared - avoid hepatotoxic drugs - will follow Subjective Date of service: 05/05/22 Principal diagnosis: Elevated LFT Interval history: - no GI or liver complaints overnight Objective - Constitutional Vitals: Temp Pulse Resp BP Pulse Ox 98.1 F 77 22 125/90 93 05/05/22 16:40 05/05/22 16:40 05/05/22 16:40 05/05/22 16:40 05/05/22 16:40 General appearance: no acute distress - EENT Eyes: PERRL - Respiratory Respiratory: bilateral: CTA - Cardiovascular Rhythm: regular Heart Sounds: Present: S1 & S2 - Gastrointestinal General gastrointestinal: Present: soft, non-tender, non-distended - Labs CBC & Chem 7: 05/03/22 04:54 05/05/22 09:17 Labs: Laboratory Results - last 24 hr 05/02/22 05/02/22 05/05/22 09:55 09:55 04:44 PT 26.1 H INR 2.03 H Sodium Potassium Chloride Carbon Dioxide Anion Gap BUN Creatinine Estimated GFR BUN/Creatinine Ratio Glucose Calcium Total Bilirubin Direct Bilirubin Indirect Bilirubin AST ALT Alkaline Phosphatase Total Creatine Kinase Total Protein Albumin Albumin/Globulin Ratio Hepatitis A Ab Total Nonreactive Hep Bs Antibody, Quant <5 L 05/05/22 05/05/22 05/05/22 04:44 09:17 10:49 PT INR Sodium 140 Potassium 4.1 D Chloride 105.5 Carbon Dioxide 23 Anion Gap 16 BUN 11 Creatinine 0.8 Estimated GFR > 60 BUN/Creatinine Ratio 14 Glucose 92 Calcium 8.2 L Total Bilirubin 0.40 Direct Bilirubin < 0.2 Indirect Bilirubin 0.2 AST 82 H ALT 69 H Alkaline Phosphatase 1484 H Total Creatine Kinase 132 Total Protein 7.5 Albumin 2.9 L Albumin/Globulin Ratio 0.6 Hepatitis A Ab Total Hep Bs Antibody, Quant
[2022-05-06 05:54] LABS: Hematocrit 43.4 % (35.5-45.6); Hemoglobin 14.7 gm/dl (11.8-15.2); Mean Corpuscular HGB Conc 34 % (32-34); Mean Corpuscular Volume 93 fl (84-94); Platelet Count 217 K/mm3 (140-440); Red Blood Count 4.66 M/mm3 (3.65-5.03)
[2022-05-06 06:02] LABS: INR 2.08 (0.87-1.13)
[2022-05-06 06:15] LABS: Alanine Aminotransferase 62 units/L (7-56); Albumin 2.7 g/dL (3.9-5); BUN/Creatinine Ratio 14; Bilirubin,Direct < 0.2 mg/dL (0-0.2); Blood Urea Nitrogen 10 mg/dL (9-20); Calcium 8.3 mg/dL (8.4-10.2); Hemolysis Index 6
[2022-05-06] MEDS: SODIUM CHLORIDE 0.9% 1000 ML 1,000 ML IV SCH (06:15)
[2022-05-06 07:12] LABS: Band Neutrophils # (Manual) 0.3 K/mm3; Basophils % (Manual) 0 % (0.0-1.8); Platelet Estimate Consistent w Auto; RBC Morphology Normal; Total Cells Counted 100
--- NOTE | 2022-05-06 08:55 | Progress Note ---
Assessment and Plan Cultures: COVID-19 PCR: Negative 04/28/2022 blood culture: No growth A/P: 51-year-old male with HIV on Triumeq, prior CVA, hypertension, hyperlipidemia was admitted to the hospital with weakness and not feeling well: #Atypical pneumonia: completed abx. #HIV disease: positive for about 20 years, has been undetectable on Triumeq, used to follow-up at [facility], recently moved to [place], his heart doctor has referred him to a local provider. #Sepsis: resolved #Elevated alkaline phosphatase: GI following, unable to complete MRCP. #Mild thrombocytopenia: resolved. Recs: -Continue Triumeq, split into abacavir, lamivudine, dolutegravir based on hospital formulary -remains stable off abx -elevated LFTs especially alkaline phosphatase work up per GI -will follow up with HIV provider upon discharge. He does not think he can come to our ID clinic at [place] because he doesn't drive and it might be too far for him. Will sign off. Please call with questions. Lokesh Garcia MD, FACP, [facility] O: [phone] F: [phone] C: [phone] Subjective Date of service: 05/06/22 Principal diagnosis: Elevated LFT Interval history: Awake, alert, afebrile. No complaints. Remains on room air. Objective - Exam Narrative Exam: Physical Exam: Constitutional: Alert, cooperative. No acute distress Head, Ears, Nose: Normocephalic, atraumatic. External ears, nose normal Eyes: Conjunctivae/corneas clear. No icterus. No ptosis. Neck: Supple, no meningeal signs Oral: no thrush Cardiovascular: S1, S2 + Respiratory: Good air entry, clear to auscultation bilaterally GI: Soft, non-tender; bowel sounds normal. No peritoneal signs Musculoskeletal: No pedal edema, no cyanosis. Skin: No rash or abscess Hem/Lymphatic: No palpable cervical or supraclavicular nodes. No lymphangitis Psych: Mood ok. Affect normal Neurological: Awake, alert, oriented - Constitutional Vitals: Vital Signs Temp Pulse Resp BP Pulse Ox 97.9 F 85 16 158/98 89 05/06/22 06:08 05/06/22 06:08 05/06/22 06:08 05/06/22 06:08 05/06/22 06:08 Temperature -Last 24 Hours Temperature 97.9 F Temperature 98.9 F Temperature 98.1 F Temperature 98.2 F - Labs CBC & Chem 7: 05/06/22 05:19 05/06/22 05:19 Labs: Abnormal lab results 05/02/22 05/05/22 05/06/22 Range/Units 09:55 09:17 05:19 Nucleated RBC % (0.0-0.9) % PT (12.2-14.9) Sec. INR (0.87-1.13) Potassium 3.5 L (3.6-5.0) mmol/L Creatinine 0.7 L (0.8-1.3) mg/dL Calcium 8.2 L 8.3 L (8.4-10.2) mg/dL AST 66 H (5-40) units/L ALT 62 H (7-56) units/L Alkaline Phosphatase 1517 H (35-129) units/L Albumin 2.7 L (3.9-5) g/dL Hep Bs Antibody, Quant <5 L (>=10) mIU/mL 05/06/22 05/06/22 Range/Units 05:19 05:19 Nucleated RBC % 1.0 H (0.0-0.9) % PT 26.6 H (12.2-14.9) Sec. INR 2.08 H (0.87-1.13) Potassium (3.6-5.0) mmol/L Creatinine (0.8-1.3) mg/dL Calcium (8.4-10.2) mg/dL AST (5-40) units/L ALT (7-56) units/L Alkaline Phosphatase (35-129) units/L Albumin (3.9-5) g/dL Hep Bs Antibody, Quant (>=10) mIU/mL
[2022-05-06] MEDS: FUROSEMIDE 40 MG TAB PO SCH (10:27)
[2022-05-06] MEDS: NIFEdipine XL 30 MG TAB PO SCH (10:27)
[2022-05-06] MEDS: ESCITALOPRAM 10 MG TAB PO SCH (10:29)
[2022-05-06] MEDS: DOLUTEGRAVIR 50 MG TAB PO SCH (10:29)
[2022-05-06] MEDS: FAMOTIDINE 20 MG TAB PO SCH (10:29)
[2022-05-06] MEDS: LISINOPRIL 40 MG TAB PO SCH (10:29)
[2022-05-06] MEDS: ABACAVIR 300 MG TAB PO SCH (10:33)
--- NOTE | 2022-05-06 12:24 | Discharge Summary ---
Providers - Providers Date of Admission: 04/28/22 15:43 Date of discharge: 05/06/22 Attending physician: NELDA MCKEON 04/29/22 00:15 Physical Therapy Evaluation and Treat [CONS] Urgent Comment: Reason For Exam: H/O stroke 04/29/22 00:16 Occupational Therapy Evaluate and Treat [CONS] Urgent Comment: Reason For Exam: H/O stroke 04/29/22 08:20 Consult to Physician [CONS] Routine Comment: Consulting Provider: ANGEL WHITNEY Physician Instructions: Reason For Exam: PNA 04/30/22 09:16 Consult to Physician [CONS] Routine Comment: Consulting Provider: KARLA CORBIN Physician Instructions: Reason For Exam: elevated alk phos Primary care physician: ROLL UP OPERATOR Hospitalization Condition: Stable Hospital course: 51 YO Male with HIV on antiretroviral therapy, CVA with LHP, HTN, HLD presents to ED for evaluation of generalized weakness over the past 2 days with diminished oral intake. Patient stated that while attempting to get out of bed he experienced a sudden onset of weakness and fell from a standing position landing on the floor. Patient denied injury. EMS was notified and upon arrival the patient was found to be in distress and subsequent transported to [facility] for further care and evaluation of the aforementioned symptoms. The patient was seen and evaluated in the emergency department. All lab and imaging studies reviewed. Patient underwent chest x-ray and was found to have pneumonia, sepsis, and HIV infection. --Sepsis. POA. Patient meets criteria given the fever, tachycardia and diagn osis of pneumonia. --COVID-19 negative --Community-acquired bilateral lower lobe pneumonia POA --Acute hypoxic respiratory failure. Supplemental oxygen --History of HIV --Obesity hypoventilation syndrome --Elevated alkaline phosphatase. -- Severe protein calorie malnutrition -- Severe hypoalbuminemia -- Hypertension/moderate control --Chronic anticoagulation with Coumadin/therapeutic INR Disposition: [facility] Final Discharge Diagnosis (Prints w/discharge instructions): Sepsis present on admission due to pneumonia POA. COVID-19 negative. Community-acquired bilateral lower lobe pneumonia POA. Acute hypoxic respiratory failure supplemental oxygen POA. History of HIV. Obesity hypoventilation syndrome. Elevated alkaline phosphatase[etiology unknown]. Severe protein calorie malnutrition. Severe hypoalbuminemia. Hypertension moderate control. Chronic anticoagulation warfarin[prophylaxis due to CVA] Time spent for discharge: 40 min Core Measure Documentation - Palliative Care Palliative Care/ Comfort Measures: Not Applicable - Core Measures Any of the following diagnoses?: none Exam - Constitutional Vitals: Temp Pulse Resp BP Pulse Ox 98.6 F 81 22 160/102 95 05/06/22 11:27 05/06/22 11:27 05/06/22 11:27 05/06/22 11:27 05/06/22 11:27 General appearance: Present: no acute distress, well-nourished - EENT Eyes: Present: PERRL, EOM intact - Neck Neck: Present: supple, normal ROM Plan Activity: advance as tolerated Diet: regular Additional Instructions: If you have worsening symptoms contact MD or go to the nearest emergency room. Strongly advised to comply with medications, diet, follow-up visits per schedule. Frequent INR checks, target INR 2-3, Next INR check in 2 days patient is on Coumadin Follow up with: PRIMARY CARE,MD [Primary Care Provider] - 7 Days Forms: Warfarin Discharge Instruction Prescriptions: Famotidine [Acid-Pep] 20 mg PO DAILY #30 Furosemide [Lasix] 40 mg PO DAILY #30 Escitalopram [Lexapro] 10 mg PO DAILY #30 AtorvaSTATin [Lipitor] 40 mg PO QHS #30 NIFEdipine [Nifedipine ER] 30 mg PO DAILY #30 lisinopriL [Zestril TAB] 40 mg PO QDAY #30
--- NOTE | 2022-05-06 15:14 | Gastroenterology Progress Note ---
Assessment and Plan GI: noted increase lft's especially alk phos without obvious signs biliary obstruction - pt refusing MRCP due to closed space - noted increasing alk phos but with nl t. bili and stable transaminases suspect no significant liver disease and nosignificant biliary obstruction - still attempting to get alk phos isoenzymes, discussed w/ lab today and given send out will take 3-4 days for results - follow labs - no changes at this time - otherwise can be dc from GI standpoint when cleared - avoid hepatotoxic drugs - ok to dc w/ outpt follow up Subjective Date of service: 05/06/22 Principal diagnosis: Elevated LFT Interval history: - no GI complaints overnight Objective - Constitutional Vitals: Temp Pulse Resp BP Pulse Ox 98.5 F 76 20 146/99 95 05/06/22 14:10 05/06/22 14:10 05/06/22 14:10 05/06/22 14:10 05/06/22 14:10 General appearance: no acute distress - EENT Eyes: PERRL - Respiratory Respiratory: bilateral: CTA - Cardiovascular Rhythm: regular Heart Sounds: Present: S1 & S2 - Gastrointestinal General gastrointestinal: Present: soft, non-tender, non-distended - Labs CBC & Chem 7: 05/06/22 05:19 05/06/22 05:19 Labs: Laboratory Results - last 24 hr 05/02/22 05/02/22 05/06/22 09:55 09:55 05:19 WBC RBC Hgb Hct MCV MCH MCHC RDW Plt Count Add Manual Diff Total Counted Seg Neuts % (Manual) Band Neutrophils % Lymphocytes % (Manual) Reactive Lymphs % (Man) Monocytes % (Manual) Eosinophils % (Manual) Basophils % (Manual) Metamyelocytes % Myelocytes % Promyelocytes % Blast Cells % Nucleated RBC % Seg Neutrophils # Man Band Neutrophils # Lymphocytes # (Manual) Abs React Lymphs (Man) Monocytes # (Manual) Eosinophils # (Manual) Basophils # (Manual) Metamyelocytes # Myelocytes # Promyelocytes # Blast Cells # WBC Morphology Hypersegmented Neuts Hyposegmented Neuts Hypogranular Neuts Smudge Cells Toxic Granulation Toxic Vacuolation Dohle Bodies Pelger-Huet Anomaly Jigar Rods Platelet Estimate Clumped Platelets Plt Clumps, EDTA Large Platelets Giant Platelets Platelet Satelliting Plt Morphology Comment RBC Morphology Dimorphic RBCs Polychromasia Hypochromasia Poikilocytosis Anisocytosis Microcytosis Macrocytosis Spherocytes Pappenheimer Bodies Sickle Cells Target Cells Tear Drop Cells Ovalocytes Helmet Cells Sheldon-Swed[place] Heaven Bodies [place] Rings Irwin Cells Bite Cells Crenated Cell Elliptocytes Acanthocytes (Spur) Rouleaux Hemoglobin C Crystals Schistocytes Malaria parasites Tony Bodies Hem Pathologist Commnt PT INR Sodium 138 Potassium 3.5 L Chloride 104.4 Carbon Dioxide 23 Anion Gap 14 BUN 10 Creatinine 0.7 L Estimated GFR > 60 BUN/Creatinine Ratio 14 Glucose 88 Calcium 8.3 L Total Bilirubin 0.40 Direct Bilirubin < 0.2 Indirect Bilirubin 0.2 AST 66 H ALT 62 H Alkaline Phosphatase 1517 H Total Protein 7.1 Albumin 2.7 L Albumin/Globulin Ratio 0.6 SARS-CoV-2 (PCR) Hepatitis A Ab Total Nonreactive Hep Bs Antibody, Quant <5 L 05/06/22 05/06/22 05/06/22 05:19 05:19 13:37 WBC 10.8 RBC 4.66 Hgb 14.7 Hct 43.4 MCV 93 MCH 32 MCHC 34 RDW 14.0 Plt Count 217 Add Manual Diff Complete Total Counted 100 Seg Neuts % (Manual) 70.0 Band Neutrophils % 3.0 Lymphocytes % (Manual) 22.0 Reactive Lymphs % (Man) 0 Monocytes % (Manual) 3.0 Eosinophils % (Manual) 1.0 Basophils % (Manual) 0 Metamyelocytes % 1.0 Myelocytes % 0 Promyelocytes % 0 Blast Cells % 0 Nucleated RBC % 1.0 H Seg Neutrophils # Man 7.6 Band Neutrophils # 0.3 Lymphocytes # (Manual) 2.4 Abs React Lymphs (Man) 0.0 Monocytes # (Manual) 0.3 Eosinophils # (Manual) 0.1 Basophils # (Manual) 0.0 Metamyelocytes # 0.1 Myelocytes # 0.0 Promyelocytes # 0.0 Blast Cells # 0.0 WBC Morphology Not Reportable Hypersegmented Neuts Not Reportable Hyposegmented Neuts Not Reportable Hypogranular Neuts Not Reportable Smudge Cells Not Reportable Toxic Granulation Not Reportable Toxic Vacuolation Not Reportable Dohle Bodies Not Reportable Pelger-Huet Anomaly Not Reportable Jigar Rods Not Reportable Platelet Estimate Consistent w auto Clumped Platelets Not Reportable Plt Clumps, EDTA Not Reportable Large Platelets Not Reportable Giant Platelets Not Reportable Platelet Satelliting Not Reportable Plt Morphology Comment Not Reportable RBC Morphology Normal Dimorphic RBCs Not Reportable Polychromasia Not Reportable Hypochromasia Not Reportable Poikilocytosis Not Reportable Anisocytosis Not Reportable Microcytosis Not Reportable Macrocytosis Not Reportable Spherocytes Not Reportable Pappenheimer Bodies Not Reportable Sickle Cells Not Reportable Target Cells Not Reportable Tear Drop Cells Not Reportable Ovalocytes Not Reportable Helmet Cells Not Reportable Sheldon-[place] Heaven Bodies Not Reportable [place] Rings Not Reportable Nicolas Cells Not Reportable Bite Cells Not Reportable Crenated Cell Not Reportable Elliptocytes Not Reportable Acanthocytes (Spur) Not Reportable Rouleaux Not Reportable Hemoglobin C Crystals Not Reportable Schistocytes Not Reportable Malaria parasites Not Reportable Tony Bodies Not Reportable Hem Pathologist Commnt No PT 26.6 H INR 2.08 H Sodium Potassium Chloride Carbon Dioxide Anion Gap BUN Creatinine Estimated GFR BUN/Creatinine Ratio Glucose Calcium Total Bilirubin Direct Bilirubin Indirect Bilirubin AST ALT Alkaline Phosphatase Total Protein Albumin Albumin/Globulin Ratio SARS-CoV-2 (PCR) Negative Hepatitis A Ab Total Hep Bs Antibody, Quant
[2022-05-06] MEDS ORDERED: WARFARIN 5 MG TAB PO NR (17:00)
[2022-05-06 17:22] VITALS: BP 155/102
== END 2022-05-06 07:45 | DRG 974 ==
LOC: ED 07:52 → 3A 15:43
PROVIDERS: ADMIT Internal Medicine; ATTEND Internal Medicine
DX: A41.9 Sepsis, unspecified organism (principal); E43 Unspecified severe protein-calorie malnutrition; B20 Human immunodeficiency virus [HIV] disease; J96.01 Acute respiratory failure with hypoxia; J18.9 Pneumonia, unspecified organism; E66.2 Morbid (severe) obesity with alveolar hypoventilation; I69.354 Hemiplegia and hemiparesis following cerebral infarction affecting left non-dominant side; Z20.822 Contact with and (suspected) exposure to COVID-19; E86.9 Volume depletion, unspecified; Z68.34 Body mass index [BMI] 34.0-34.9, adult; I10 Essential (primary) hypertension; E78.5 Hyperlipidemia, unspecified; D69.6 Thrombocytopenia, unspecified; Z79.01 Long term (current) use of anticoagulants; Z82.49 Family history of ischemic heart disease and other diseases of the circulatory system; K83.8 Other specified diseases of biliary tract; Z79.899 Other long term (current) drug therapy
CPT/HCPCS: 36415; 71045; 76705; 80048; 80053; 80076; 80307; 81001; 82140; 82390; 82550; 83520; 83550; 84075; 84145; 85007; 85025; 85610; 86705; 86706; 86708; 86709; 86803; 87040; 93005; 94640; G0378; J3490; J0696; J2060; J2405; J3430; J7030; U0003